=== PATIENT | male | born 1945 | race Caucasian/White ===

== ENCOUNTER → 2017-03-26 | Outpatient (CLI) | payer OTHER ==
[~2017-03-26] MED LIST: CETI10TA10 PO; CHOL20009 PO; GLYB5TAB8 PO; LOSA100T65 PO; METF-384 PO; RANI150T3 PO; SIMV10TA5 PO; SITA1TAB27 PO
[2017-03-26 12:16] LABS: ALT/SGPT 19 U/L (12-78); AST/SGOT 13 U/L (15-37); BLOOD UREA NITROGEN 28 mg/dl (7-18); BUN/CREATININE RATIO 17.6 (10-20); CALCIUM 9.5 mg/dl (8.5-10.1); CARBON DIOXIDE 27 mmol/L (21-32); CHLORIDE 102 mmol/L (98-107); GLUCOSE 270 mg/dl (70-99); POTASSIUM 5.4 mmol/L (3.5-5.1); SODIUM 135 mmol/L (136-145); TRIGLYCERIDES 284 mg/dl (0-150)
[2017-03-26 12:24] LABS: ESTIMATED AVERAGE GLUCOSE 309 mg/dl; HA1C FLAG Normal (Normal)
== END | disposition home or self-care (01) ==
LOC: C.LABPBG 07:41
PROVIDERS: ATTEND Internal Medicine
DX: E11.65 Type 2 diabetes mellitus with hyperglycemia (principal); E78.5 Hyperlipidemia, unspecified

== ENCOUNTER → 2017-03-29 | Outpatient (CLI) | payer OTHER ==
[2017-03-29 17:32] LABS: BLOOD UREA NITROGEN 30 mg/dl (7-18); BUN/CREATININE RATIO 15.9 (10-20); CALCIUM 9.3 mg/dl (8.5-10.1); CARBON DIOXIDE 24 mmol/L (21-32); CHLORIDE 102 mmol/L (98-107); GLUCOSE 345 mg/dl (70-99); POTASSIUM 4.8 mmol/L (3.5-5.1); SODIUM 134 mmol/L (136-145)
[2017-03-29 17:42] LABS: BETA-HYDROXYBUTYRATE 0.92 mg/dL (0.2-2.81)
== END | disposition home or self-care (01) ==
LOC: C.LAB1850 15:54
PROVIDERS: ATTEND Internal Medicine
DX: E87.5 Hyperkalemia (principal)

== ENCOUNTER → 2017-04-04 | Outpatient (CLI) | payer OTHER ==
--- NOTE | 2017-04-04 15:58 | DIAGNOSTIC IMAGING REPORT ---
RENAL ULTRASOUND HISTORY: UNCONTROLLED TYPE 2 DAIBETES,ELEVATED BUN COMPARISON: None. FINDINGS: Right kidney: 12.3 cm. No hydronephrosis. Normal corticomedullary differentiation and cortical thickness. Left kidney: 8.3 cm. No hydronephrosis. Moderate cortical atrophy. Bladder: No bladder wall thickening. The bilateral ureteral jets were identified. IMPRESSION: 1. Normal right kidney. 2. Moderate left renal atrophy. Electronically signed by: Aris Gandhi M.D. 04/04/2017 3:57 PM Dictated Date/Time: 04/04/2017 3:56 PM
== END | disposition home or self-care (01) ==
LOC: C.ULTR 15:31
PROVIDERS: ATTEND Internal Medicine
DX: E11.65 Type 2 diabetes mellitus with hyperglycemia (principal); R79.9 Abnormal finding of blood chemistry, unspecified

== ENCOUNTER → 2017-06-04 | Outpatient (CLI) | payer OTHER ==
[2017-06-04 17:42] LABS: URINE APPEARANCE CLEAR (CLEAR); URINE BILIRUBIN NEG (NEG); URINE COLOR YELLOW; URINE NITRITE NEG (NEG); URINE SPECIFIC GRAVITY 1.024 (1.000-1.030); UROBILINOGEN NEG (NEG)
[2017-06-04 17:52] LABS: HEMATOCRIT 38.5 % (42-52); MEAN CELL VOLUME 86.5 fL (80-100); MEAN CORPUSCULAR HEMOGLOBIN 29.7 pg (25-34); MEAN CORPUSCULAR HGB CONC 34.3 g/dl (32-36); MEAN PLATELET VOLUME 12.6 fL (7.4-10.4); PLATELET COUNT 233 K/uL (130-400); RED BLOOD COUNT 4.45 M/uL (4.7-6.1); WHITE BLOOD COUNT 9.26 K/uL (4.8-10.8)
[2017-06-04 17:55] LABS: MANUAL MICROSCOPIC REQUIRED? NO; REVIEW REQ? NO
[2017-06-04 18:26] LABS: URINE PROTIEN/CREAT RATIO 0.2 (0-0.2); URINE TOTAL PROTEIN 24.3 mg/dl (0-11.9)
[2017-06-04 18:51] LABS: ALB/GLOB RATIO 1.2 (0.9-2); ALKALINE PHOSPHATASE 75 U/L (45-117); ALT/SGPT 25 U/L (12-78); AST/SGOT 14 U/L (15-37); BLOOD UREA NITROGEN 31 mg/dl (7-18); CALCIUM 9.3 mg/dl (8.5-10.1); CARBON DIOXIDE 27 mmol/L (21-32); CHLORIDE 101 mmol/L (98-107); CREATININE 1.56 mg/dl (0.60-1.40); GLUCOSE 269 mg/dl (70-99); PHOSPHORUS 3.5 mg/dl (2.5-4.9); SODIUM 135 mmol/L (136-145)
== END | disposition home or self-care (01) ==
LOC: C.LABPBG 15:52
PROVIDERS: ATTEND Internal Medicine Nephrology
DX: N17.9 Acute kidney failure, unspecified (principal); E11.65 Type 2 diabetes mellitus with hyperglycemia

== ENCOUNTER → 2017-06-18 | Outpatient (CLI) | payer OTHER ==
[2017-06-18 12:13] LABS: ESTIMATED AVERAGE GLUCOSE 220 mg/dl; HA1C FLAG Normal (Normal)
== END | disposition home or self-care (01) ==
LOC: C.LABPBG 07:27
PROVIDERS: ATTEND Physician Assistant
DX: E11.65 Type 2 diabetes mellitus with hyperglycemia (principal)

== ENCOUNTER → 2017-07-29 | Outpatient (CLI) | payer OTHER ==
[2017-07-29 12:33] LABS: ALBUMIN 3.9 gm/dl (3.4-5.0); BLOOD UREA NITROGEN 27 mg/dl (7-18); CALCIUM 9.6 mg/dl (8.5-10.1); CARBON DIOXIDE 27 mmol/L (21-32); CREATININE 1.42 mg/dl (0.60-1.40); GLUCOSE 326 mg/dl (70-99); PHOSPHORUS 2.7 mg/dl (2.5-4.9); POTASSIUM 4.7 mmol/L (3.5-5.1); SODIUM 138 mmol/L (136-145)
== END | disposition home or self-care (01) ==
LOC: C.LABPBG 09:37
PROVIDERS: ATTEND Internal Medicine Nephrology
DX: N17.9 Acute kidney failure, unspecified (principal)

== ENCOUNTER → 2017-08-15 | Outpatient (CLI) | payer OTHER ==
--- NOTE | 2017-08-15 09:00 | DIAGNOSTIC IMAGING REPORT ---
R SHOULDER MIN 2 VIEWS ROUTINE HISTORY: 71 years-old Male M25.511 Right shoulder [id number] acute right shoulder pain without reported trauma COMPARISON: None available TECHNIQUE: 3 views of the right shoulder FINDINGS: There are mild glenohumeral and AC joint degenerative changes without acute fracture or dislocation. The imaged clavicle appears intact. Imaged lung venegas appear clear. IMPRESSION: Mild degenerative changes without acute fracture or dislocation. The above report was generated using voice recognition software. It may contain grammatical, syntax or spelling errors. Electronically signed by: Prashant Zavaleta M.D. 08/15/2017 8:59 AM Dictated Date/Time: 08/15/2017 8:58 AM
== END | disposition home or self-care (01) ==
LOC: C.RAD1850 08:03
PROVIDERS: ATTEND Internal Medicine
DX: M25.511 Pain in right shoulder (principal)

== ENCOUNTER → 2017-11-23 | Outpatient (CLI) | payer OTHER ==
[2017-11-23 10:29] LABS: HEMOGLOBIN A1C 8.8 % (4.5-5.6)
[2017-11-23 10:36] LABS: ALT/SGPT 19 U/L (12-78); AST/SGOT 13 U/L (15-37); BLOOD UREA NITROGEN 27 mg/dl (7-18); CALCIUM 8.8 mg/dl (8.5-10.1); CARBON DIOXIDE 26 mmol/L (21-32); CHOLESTEROL 136 mg/dl (0-200); CREATININE 1.54 mg/dl (0.60-1.40); GLUCOSE 136 mg/dl (70-99); LDL CHOLESTEROL CALCULATED 74 mg/dl; SODIUM 138 mmol/L (136-145)
== END | disposition home or self-care (01) ==
LOC: C.LAB1850 09:01
PROVIDERS: ATTEND Internal Medicine
DX: E11.9 Type 2 diabetes mellitus without complications (principal); E78.5 Hyperlipidemia, unspecified

== ENCOUNTER 2024-04-10 03:27 | Inpatient (IN) ==
--- NOTE | 2024-04-10 03:50 | Emergency Department Note ---
Impression & Plan Acute hyperglycemia, Acute UTI (urinary tract infection), Acute dehydration, Acute hyponatremia, DANIEL (acute kidney injury) ED Provider Note Name: INES CASTRO Age: 78 Sex: Male Arrives Via: Walk-In Informant: Patient, , son ED Provider: Anastacio Ventura MD Chief Complaint: Weakness Impression: As per impressions above Medical Decision Making: Pleasant 78-year-old gentleman with worsening weakness over the last several weeks. Notes he has been falling regularly at home. States because his legs just get too weak. He was seen in the ER for this about a week ago as well as by PCP a few days ago. MRI was ordered which was unremarkable yesterday. Continued worsening weakness thus returned to ED. Given continued symptoms felt that laboratry work up indicated. Hold on further neuro imaging given MRI negative yesterday. Labs remarkable for extensive abnormality including severely elevated BSG. Patient admits he doesn't check his sugars nor take his DMII medications. Likely has UTI as well for which rocephin given. IV fluids for dehydration and hyperglycemia. Defer insulin plan to hospitalist after discussion with them. Patient does not have severe sepsis at this time. Triage/Nursing Notes reviewed by Me External Chart Review by me: Reviewed PCP note from 04-08-24 discussing worsening left leg weakness and frequent falls and plan for MRI. I reviewed the MRI from yesterday which reveals no acute intracranial finding. Differential:Infection, dehydration, metabolic abnormality, hypo/hyperglycemia, electrolyte disturbance, anemia, hypoxia, cardiac sources, intracerebral event, toxicologic, neurologic, as well as other pathologies. Vital Signs: reviewed and remarkable for no significant abnormalities Interventions: rocephin iv, nss bolus Labs:ED labs Reviewed by me and remarkable for multiple laboratory abnormalities Consults: Discussed with hospitalist who will evaluate for further management. Plan: Disposition:Hospitalization. Condition: Fair History of Present Illness: 78-year-old gentleman arrives for evaluation of weakness. Patient with several weeks of worsening weakness. Primarily in bilateral legs. He notes it feels like his left leg just does not have the strength he used to. Also notes some weakness in the right leg at times. He has been following with ER and PCP for this. Yesterday had an MRI of the brain which was unremarkable. This evening he got up to go to the bathroom which he does every 2-3 hours at night and left leg gave out on him. He fell backwards hitting his back upper right on something. Notes mild soreness in this area. Mild worsening with movement of the right shoulder blade. Denies any shortness of breath, chest pain, palpitations, nausea, vomiting, low back pain, loss of bowel or bladder control, other concerning signs or symptoms. States weakness is no worse than it has been previously. No specific recollection of any tick bites though does note he periodically is in the saravia or weeds. Patient is adamant he has no headache neurologic deficits and denies any hitting of his head or loss of consciousness. Patient admits that he is supposed to be using a walker or cane but does not. Past Medical History: Diabetes, CKD, dyslipidemia, hypertension, restless legs, allergies Home Medications:See Below Allergies:nkda Vitals:Blood Pressure: 130/75, Pulse 91, RR 20, T 36.5C, O2 98% on RA Physical Exam: GENERAL: Patient is tired/elderly appearing and in minimal distress. HEAD: AT/NC NECK: No midline TTP, no stepoffs RESPIRATORY: No dyspnea. Clear to auscultation and equal bilaterally. CARDIOVASCULAR: Regular rate and rhythm.No murmur appreciated. GASTROINTESTINAL: Abdomen soft, non-tender, no peritonitis. BACK: Bruising and abrasions over the upper right back between midline and scapula with some TTP. No midline tenderness, no CVA tenderness EXTREMITIES: Normal motion all extremities, no cyanosis, no edema. NEUROLOGIC: Alert and oriented. No focal neurologic deficits appreciated SKIN: No rash, no jaundice, no diaphoresis. PSYCH: Appropriate GCS: 15 ED Course: Times/Reassessments: stable, breathing comfortable, agreeable to hospitalization Anastacio Ventura MD Past Med/Surg History Problem List (Updated 04/11/24 @ 15:58 by Marlene Corona MD) Urinary retention Hyperglycemia due to diabetes mellitus (Acute) DANIEL (acute kidney injury) (Acute) Acute hyponatremia (Acute) Acute dehydration (Acute) Acute UTI (urinary tract infection) (Acute) Acute hyperglycemia (Acute) Fall (Acute) Left arm pain (Acute) DM type 2 causing CKD stage 3 Uncontrolled type 2 diabetes mellitus with hyperglycemia, without long-term current use of insulin Contusion of leg (Acute) Leg hematoma (Acute) Adjustment disorder (Acute) Cataract, bilateral (Acute) Chronic kidney disease, stage III (moderate) (Acute) Diabetes mellitus type 2, uncontrolled (Chronic) Dyslipidemia (Acute) Hyperkalemia (Acute) Hypertension (Chronic) Right shoulder pain (Acute) Vitamin B12 deficiency Ptosis of both eyebrows Ptosis, right eyelid Dermatochalasis of both upper eyelids Medical History DANIEL (acute kidney injury) Surgical History No pertinent past surgical history Family History Other Adopted Social History Smoking Status: Former smoker Tobacco Type: Cigarettes Second Hand Exposure: No; Do You Dip or Chew Tobacco: No; Hx Alcohol Use: No Hx Substance Use: No Preferred Language: Azeri Communication Ability: Effective Armhole Feller Handstitching Machine Required: No Beliefs That Will Affect Care: None marital status: Current Living Situation: Spouse current occupational status: employed 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 Feels Safe at Home: Yes Childhood Exposure to Second-Hand Smoke: Yes Diet: diabetic Dental Care, Regularly: No Physical Activity Frequency: Does not Exercise Seatbelt Use: sometimes Sunscreen Use: No Assistive Devices: None Allergies Allergies Allergy/AdvReac Type Severity Reaction Status Date / Time No Known Allergies Allergy Unverified 04/10/24 08:20 Home Meds Home Medications Medication Instructions Recorded Confirmed cetirizine 10 mg capsule 10 mg PO DAILY PRN allergy symptoms 04/15/19 04/10/24 cholecalciferol (vitamin D3) 50 2,000 units PO DAILY 04/15/19 04/10/24 mcg (2,000 unit) capsule Previous Rx's Medication Instructions Recorded flash glucose scanning reader #1 ea 03/10/20 (ClacendixStyle Sangeetha 14 Day [place]) flash glucose sensor (FreeStyle #2 ea 03/10/20 Sangeetha 14 Day Sensor kit) blood sugar diagnostic (OneTouch #100 ea 04/05/22 Ultra Test strips) glimepiride 4 mg tablet 4 mg PO .COMPLEX #180 tabs 01/20/24 empagliflozin 10 mg tablet 10 mg PO DAILY #30 tabs 02/14/24 (Jardiance) dulaglutide 4.5 mg/0.5 mL 4.5 mg (0.5 mL) subcut .COMPLEX #2 03/02/24 subcutaneous pen injector mL triamcinolone acetonide 0.1 % 1 applic topical BID #30 grams 04/03/24 topical ointment Results & Data (ED) Vital Signs Vital Signs - 24 hr 04/10/24 03:31 04/10/24 03:55 04/10/24 04:04 Temperature 36.5 C Temperature Source Temporal Artery Scan Pulse Rate 91 H 93 H 86 Respiratory Rate 20 12 Respiratory Effort / Characteristics Non-Labored Spontaneous Respiratory Depth Normal Blood Pressure 130/75 146/92 H Blood Pressure Mean 93 103 Pulse Oximetry 98 97 Oxygen Delivery Method Room Air Room Air Sepsis Recent Fever Within 48 Hours No Sepsis New/Unexplained Change in Mental Status N/A Sepsis Action Taken by Nursing No Action Required 04/10/24 05:30 Temperature Temperature Source Pulse Rate 89 Respiratory Rate 14 Respiratory Effort / Characteristics Respiratory Depth Blood Pressure 163/97 H Blood Pressure Mean 119 Pulse Oximetry 99 Oxygen Delivery Method Room Air Sepsis Recent Fever Within 48 Hours Sepsis New/Unexplained Change in Mental Status Sepsis Action Taken by Nursing Laboratory Data 04/13/24 06:30 04/13/24 06:30 Lab Results 04/10/24 04/10/24 Range/Units 03:53 04:00 WBC 9.56 (4.8-10.8) K/ul RBC 4.61 L (4.70-6.10) M/uL Hgb 13.6 L (14.0-18.0) g/dl Hct 39.1 L (42.0-52.0) % MCV 84.8 (80.0-100.0) fL MCH 29.5 (25.0-34.0) pg MCHC 34.8 (32.0-36.0) g/dL RDW Std Deviation 38.2 (36.4-46.3) fL RDW Coeff of Hollis 12.4 (11.5-14.5) % Plt Count 263 (130-400) K/uL MPV 12.0 (9.4-12.4) fL Immature Gran % (Auto) 0.5 % Neut % (Auto) 69.5 % Lymph % (Auto) 20.0 % Bonner % (Auto) 6.8 % Eos % (Auto) 2.7 % Baso % (Auto) 0.5 % Neut # (Auto) 6.64 H (1.40-6.50) K/uL Lymph # (Auto) 1.91 (1.20-3.40) K/uL Bonner # (Auto) 0.65 H (0.11-0.59) K/uL Eos # (Auto) 0.26 (0.00-0.50) K/uL Baso # (Auto) 0.05 (0.00-0.20) K/uL Immature Gran # (Auto) 0.05 (0.01-0.20) K/uL ESR 46 H (0-20) mm/hr Sodium 122 L (136-145) mmol/L Potassium 4.4 (3.5-5.1) mmol/L Chloride 86 L (98-107) mmol/L Carbon Dioxide 25 (21-32) mmol/L Anion Gap 11 (3-11) BUN 41 H (6-23) mg/dl Creatinine 2.12 H (0.6-1.4) mg/dl Est Cr Clr Drug Dosing Not Reportable eGFR 30.88 BUN/Creatinine Ratio 19.3 (10-20) Glucose 771 H* (70-99(Fasting)) mg/dl Calcium 9.4 (8.6-10.3) mg/dl Magnesium 2.0 (1.7-2.4) mg/dl Total Bilirubin 0.9 (0.2-1.0) mg/dl Direct Bilirubin 0.2 (0-0.2) mg/dl AST 18 (13-39) U/L ALT 19 (7-52) U/L Alkaline Phosphatase 145 H (34-104) U/L Total Protein 7.5 (6.0-8.3) gm/dl Albumin 4.2 (3.4-5.0) gm/dl TSH 1.635 (0.300-4.500) uIu/ml Urine Color Yellow Urine Appearance Cloudy A (Clear) Urine pH 5.5 (4.5-7.5) Ur Specific [place] 1.029 (1.000-1.030) Urine Protein 1+ H (Negative) Urine Glucose (UA) 3+ H (Negative) Urine Ketones Trace H (Negative) Urine Blood 1+ H (Negative) Urine Nitrite Negative (Negative) Urine Bilirubin Negative (Negative) Urine Urobilinogen Negative (Negative) Ur Leukocyte Esterase 2+ H (Negative) Urine WBC (Auto) >50 H (0-5) /hpf Urine RBC (Auto) 0-2 (0-2) /hpf U Hyaline Cast (Auto) 0-2 (0-2) /lpf U Epithel Cells (Auto) 0-2 (0-2) /hpf Urine Bacteria (Auto) 2+ H (None Seen) Urine Osmolality 482 L (500-800) mOsm/kg Ur Random Sodium 23 mmol/L Lyme Disease Screen Negative (Negative) Administered Medications Enoxaparin Sodium (Enoxaparin Inj 30 Mg/0.3 Ml Syr) 30 mg SQ QAM [facility] Stop: 05/12/24 08:59 Last Admin: 04/13/24 07:48 Dose: 30 mg Documented By: Admin: 04/12/24 08:30 Dose: 30 mg Documented By: AM Insulin Aspart (Insulin Aspart Per Unit Charge) 0 units SC ACHS ZAIN Stop: 05/10/24 07:29 Last Admin: 04/13/24 17:17 Dose: 10 units Documented By: BRADEN Co-signed By: FCO Admin: 04/13/24 12:00 Dose: 9 units Documented By: AM Co-signed By: NADIA Admin: 04/13/24 07:47 Dose: 14 units Documented By: AM Co-signed By: NADIA Admin: 04/12/24 20:27 Dose: Not Given Documented By: AMP Co-signed By: MMD Admin: 04/12/24 16:59 Dose: 10 units Documented By: AM Co-signed By: RB Admin: 04/12/24 11:51 Dose: 14 units Documented By: AM Co-signed By: CA Admin: 04/12/24 08:27 Dose: 21 units Documented By: AM Co-signed By: KEN Admin: 04/11/24 20:49 Dose: 10 units Documented By: AMP Co-signed By: JOSÉ LUIS Admin: 04/11/24 16:49 Dose: 12 units Documented By: AM Co-signed By: KEN Admin: 04/11/24 12:17 Dose: 15 units Documented By: AM Co-signed By: ÁNGEL Admin: 04/11/24 08:10 Dose: 10 units Documented By: AM Co-signed By: ARV Admin: 04/10/24 21:41 Dose: 1 units Documented By: AM Co-signed By: KYLER Admin: 04/10/24 16:42 Dose: 5 units Documented By: AM Co-signed By: ÁNGEL Admin: 04/10/24 13:30 Dose: 10 units Documented By: PK Co-signed By: ÁNGEL Admin: 04/10/24 06:48 Dose: Not Given Documented By: CARLOS Co-signed By: DARLING Insulin Glargine (Lantus Per Unit Charge) 35 units SC QAM [facility] Stop: 05/12/24 08:59 Last Admin: 04/13/24 08:08 Dose: 35 units Documented By: WILLIE Co-signed By: Admin: 04/12/24 08:28 Dose: 35 units Documented By: AM Co-signed By: KEN Tamsulosin HCl (Tamsulosin Hcl 0.4 Mg Cap) [facility] Stop: 05/11/24 09:14 Last Admin: 04/13/24 07:48 Dose: 0.4 mg Documented By: Admin: 04/12/24 08:30 Dose: 0.4 mg Documented By: Admin: 04/11/24 09:33 Dose: 0.4 mg Documented By: WILLIE Discontinued Medications Sodium Chloride (Nss) 1,000 mls @ 999 mls/hr IV .Q1H1M ONE Stop: 04/10/24 06:22 Last Admin: 04/10/24 06:06 Dose: Not Given Documented By: CARLOS Ceftriaxone Sodium (Rocephin) 2,000 mg in 50 mls @ 100 mls/hr IV NOW STA Stop: 04/10/24 05:53 Last Infusion: 04/10/24 06:39 Dose: Infused Documented By: Admin: 04/10/24 06:08 Dose: 100 mls/hr Documented By: CARLOS Potassium Chloride/Sodium Chloride (Normal Saline W/20 Meq Kcl) 20 meq in 1,000 mls @ 180 mls/hr IV .Q5H34M ZAIN Stop: 04/10/24 17:36 Last Infusion: 04/10/24 17:36 Dose: Infused Documented By: Admin: 04/10/24 12:25 Dose: 180 mls/hr Documented By: Infusion: 04/10/24 12:18 Dose: Infused Documented By: Admin: 04/10/24 06:44 Dose: 180 mls/hr Documented By: CARLOS Insulin Human Regular 250 (units/ Sodium Chloride) 250 mls @ 4.2 mls/hr IV .Q24H [facility]; Protocol Stop: 05/10/24 06:29 Last Titration: 04/10/24 17:13 Dose: Infused Documented By: AM Co-signed By: KJS Titration: 04/10/24 16:28 Dose: 4.2 units/hr, 4.2 mls/hr Documented By: AM Co-signed By: LCS Titration: 04/10/24 16:05 Dose: 5.2 units/hr, 5.2 mls/hr Documented By: AM Co-signed By: EP Titration: 04/10/24 15:35 Dose: 0 units/hr, 0 mls/hr Documented By: AM Co-signed By: LCS Titration: 04/10/24 15:24 Dose: 8.7 units/hr, 8.7 mls/hr Documented By: AM Co-signed By: PK Titration: 04/10/24 13:30 Dose: 8.7 units/hr, 8.7 mls/hr Documented By: PK Co-signed By: BRADEN(2) Titration: 04/10/24 13:27 Dose: 6.2 units/hr, 6.2 mls/hr Documented By: PK Co-signed By: EP Titration: 04/10/24 12:24 Dose: 4.4 units/hr, 4.4 mls/hr Documented By: PK Co-signed By: LCS Titration: 04/10/24 11:12 Dose: 3.6 units/hr, 3.6 mls/hr Documented By: PK Co-signed By: LCS Titration: 04/10/24 10:11 Dose: 2.4 units/hr, 2.4 mls/hr Documented By: PK Co-signed By: LCS Titration: 04/10/24 08:58 Dose: 2.4 units/hr, 2.4 mls/hr Documented By: BRTitus Co-signed By: GEOVANY Admin: 04/10/24 07:43 Dose: 2 units/hr, 2 mls/hr Documented By: BRJ Co-signed By: ALIA Insulin Aspart (Insulin Aspart Per Unit Charge) 0 units SC 0000,0400 [facility] Stop: 04/11/24 04:01 Last Admin: 04/11/24 04:21 Dose: Not Given Documented By: Admin: 04/11/24 00:00 Dose: 5 units Documented By: MNM Co-signed By: SG Insulin Glargine (Lantus Per Unit Charge) 20 units SC ONE ONE Stop: 04/10/24 12:01 Last Admin: 04/10/24 13:30 Dose: 20 units Documented By: PK Co-signed By: ÁNGEL Insulin Glargine (Lantus Per Unit Charge) 25 units SC [facility] Stop: 05/11/24 08:59 Last Admin: 04/11/24 08:11 Dose: 25 units Documented By: AM Co-signed By: FARHAN Insulin Glargine (Lantus Per Unit Charge) 0 units SC [facility]; Protocol Stop: 05/12/24 20:59 Last Admin: 04/12/24 20:31 Dose: Not Given Documented By: AMP Insulin Human Regular (Novolin-R Bolus From Bag) 2 units IV ONE ONE Stop: 04/10/24 06:31 Last Admin: 04/10/24 07:44 Dose: 2 units Documented By: SERENA Co-signed By: ALIA Polyethylene Glycol (Polyethylene (Miralax) 17 Gm Pack) 17 gm PO DAILY PRN PRN Reason: Constipation Stop: 05/10/24 08:04 Last Admin: 04/12/24 17:00 Dose: 17 gm Documented By: AM Discharge Plan Visit Data Chief Complaint: Fall Stated Complaint: FELL OUT OF BED, BLOOD ON FLOOR ED Provider: Anastacio Ventura Discharge Problem: Acute hyperglycemia, Acute UTI (urinary tract infection), Acute dehydration, Acute hyponatremia, DANIEL (acute kidney injury) Patient Disposition: Admitted As Inpatient Discharge Instructions Interventions: ED Discharge Assessment Last Done: 04/10/24 08:06
[2024-04-10 04:23] LABS: Appearance Urine Cloudy (Clear); Bacteria Urine Automated 2+ (None Seen); Bilirubin Urine Negative (Negative); Blood Urine 1+ (Negative); Cast Urine Automated 0-2 /lpf (0-2); Color Urine Yellow; Epithelial Cell Urine Auto 0-2 /hpf (0-2); Glucose Urine UA 3+ (Negative); Ketones Urine Trace (Negative); Leukocyte Esterase Urine 2+ (Negative); Nitrite Urine Negative (Negative); Protein Urine 1+ (Negative); RBC Urine Automated 0-2 /hpf (0-2); Specific Gravity Urine 1.029 (1.000-1.030); Urobilinogen Urine Negative (Negative); WBC Urine Automated >50 /hpf (0-5); pH Urine 5.5 (4.5-7.5)
[2024-04-10 04:24] LABS: Basophils # (auto) 0.05 K/uL (0.00-0.20); Basophils % (auto) 0.5 %; Eosinophils # (auto) 0.26 K/uL (0.00-0.50); Eosinophils % (auto) 2.7 %; Hematocrit (blood only) 39.1 % (42.0-52.0); Hemoglobin 13.6 g/dl (14.0-18.0); Immature Granulocytes # (auto) 0.05 K/uL (0.01-0.20); Immature Granulocytes % (auto) 0.5 %; Lymphocytes # (auto) 1.91 K/uL (1.20-3.40); Mean Corpuscular Hemoglobin 29.5 pg (25.0-34.0); Mean Corpuscular Hgb Conc 34.8 g/dL (32.0-36.0); Mean Corpuscular Volume 84.8 fL (80.0-100.0); Monocytes # (auto) 0.65 K/uL (0.11-0.59); Monocytes % (auto) 6.8 %; Neutrophils # (auto) 6.64 K/uL (1.40-6.50); Neutrophils % (auto) 69.5 %; Platelet Count 263 K/uL (130-400); RDW Coefficient of Variation 12.4 % (11.5-14.5); RDW Standard Deviation 38.2 fL (36.4-46.3); Red Blood Count 4.61 M/uL (4.70-6.10); White Blood Count 9.56 K/ul (4.8-10.8)
[2024-04-10 05:02] LABS: Alanine Aminotransferase 19 U/L (7-52); Albumin Level 4.2 gm/dl (3.4-5.0); Alkaline Phosphatase 145 U/L (34-104); Anion Gap 11 (3-11); Aspartate Aminotransferase 18 U/L (13-39); BUN Creatinine Ratio 19.3 (10-20); Bilirubin Direct 0.2 mg/dl (0-0.2); Bilirubin,Total 0.9 mg/dl (0.2-1.0); Blood Urea Nitrogen 41 mg/dl (6-23); Calcium 9.4 mg/dl (8.6-10.3); Carbon Dioxide 25 mmol/L (21-32); Chloride 86 mmol/L (98-107); Glucose 771 mg/dl (70-99(Fasting)); Potassium 4.4 mmol/L (3.5-5.1); Sodium 122 mmol/L (136-145); Thyroid Stimulating Hormone 1.635 uIu/ml (0.300-4.500); Total Protein 7.5 gm/dl (6.0-8.3)
--- NOTE | 2024-04-10 05:32 | History & Physical Report ---
Date of Service April 10, 2024 Assessment & Plan (1) Uncontrolled type 2 diabetes mellitus with hyperglycemia, without long-term current use of insulin: (2) Chronic kidney disease, stage III (moderate): (3) Diabetes mellitus type 2, uncontrolled: (4) Dyslipidemia: (5) Hypertension: (6) Fall: Plan Fady is a 78M w/ PMH of uncontrolled DM2 w/ CKD, HLD, HTN, and B12 deficiency who presents for worsening lower extremity weakness and upper extremity tremors. Patient was found to have a BSG of 771 and was admitted for IV insulin therapy. Hyperglycemia (771) - Hyperglycemia in setting of progressive weakness, ketonuria w/o anion gap - Patient w/ underlying uncontrolled T2DM on Dulaglutide, Empagliflozin, and Glimepiride Home antidiabetic medications held Last A1c 12.3 in January 2024, repeat A1c ordered BSG checks Q1h - Start NSS + K @ 180cc/hr (1.5 x mIVF) for 2 bags - Start Insulin gtt ordered per protocol - BMP, Mg, and Phos Q4h - Encourage ongoing lifestyle counseling targeted towards DM2 Hyponatremia (122) - IVFs/Insulin as above - LIkely 2/2 significant hyperglycemia (pseudohyponatremia) Acute Kidney Injury (2.12) on CKD 3 - Baseline ~ 1.6-1.8, now 2.12 - Avoid nephrotoxic agents - IVFs as above - BMP as above Weakness - Potential a/w hyperglycemia/pseudohyponatremia/uncontrolled T2DM \- 04/09/24 Brain MRI w/o acute abnormality, chronic microvascular change - 04/10/24 CTAP pending - PT/OT evals - Fall precautions Abnormal Urinalysis - Urinalysis w/ ketones, blood, leuks, WBC and bacteria - Patient w/ polyuria/polydipsia, unlikely UTI Patient denies fevers/chills, dysuria, flank pain, or suprapubic pain - Urine culture pending - Ceftriaxone received in ED though given increase urinary frequency Chronic Conditions - DM2: hold home meds, start insulin ggt - HLD: no home statin - HTN: hold Losartan d/t DANIEL Diet: NPO Code: Full DVT: SCD Dispo: PCU History of Present Illness Chief Complaint: Weakness Primary Care Provider: Star Duron MD Fady is a 78M w/ PMH of uncontrolled DM2 w/ CKD, HLD, HTN, and B12 deficiency who presents for worsening lower extremity weakness and upper extremity tremors. Patient presents to the emergency department today due to progressive lower extremity weakness and intermittent upper extremity tremors over the last few weeks. He was accompanied by his and a friend who are worried about his wellbeing. Patient notes that over the last few weeks he has become progressively more thirsty and has been urinating constantly, to the point of incontinence. notes that patient experiences alot of dietary indiscretions (enjoys [employer] pies) and is not as mobile as he used to be (due to leg weakness/discomfort). Patient denies any chest pain, dyspnea, lightheadedness, dizziness, nausea, emesis, fevers, chills, or abdominal pain. He continues to move bowels regularly. Patient endorses increased urinary frequency without dysuria, suprapubic pain, or flank pain. notes that his urine is very concentrated and 'sticky'. Patient has been struggling to obtain an Rx for Trulicity, which used to work well for him, he notes that the cost is prohibitive at this time. He continues to take his other anti-diabetic medications as prescribed. Patient does not take his blood sugars regularly, citing that the BSG pricks have made all his fingers numb/calloused. Allergies Allergy/AdvReac Type Severity Reaction Status Date / Time No Known Allergies Allergy Unverified 04/10/24 08:20 Home Medications Medication Instructions Recorded Confirmed Type cetirizine 10 mg capsule 10 mg PO DAILY PRN allergy symptoms 04/15/19 04/10/24 History cholecalciferol (vitamin D3) 50 2,000 units PO DAILY 04/15/19 04/10/24 History mcg (2,000 unit) capsule flash glucose scanning reader #1 ea 03/10/20 01/22/24 Rx (FreeStyle Sangeetha 14 Day [place]) flash glucose sensor (FreeStyle #2 ea 03/10/20 01/22/24 Rx Sangeetha 14 Day Sensor kit) blood sugar diagnostic (SimpleRegistryTouch #100 ea 04/05/22 01/22/24 Rx Ultra Test strips) glimepiride 4 mg tablet 4 mg PO .COMPLEX #180 tabs 01/20/24 04/03/24 Rx empagliflozin 10 mg tablet 10 mg PO DAILY #30 tabs 02/14/24 04/10/24 Rx (Jardiance) dulaglutide 4.5 mg/0.5 mL 4.5 mg (0.5 mL) subcut .COMPLEX #2 03/02/24 04/10/24 Rx subcutaneous pen injector mL triamcinolone acetonide 0.1 % 1 applic topical BID #30 grams 04/03/24 04/10/24 Rx topical ointment Past Med/Surg History Problem List (Updated 04/10/24 @ 07:59 by Karson Mckenzie) DANIEL (acute kidney injury) (Acute) Acute hyponatremia (Acute) Acute dehydration (Acute) Acute UTI (urinary tract infection) (Acute) Acute hyperglycemia (Acute) Fall (Acute) Left arm pain (Acute) DM type 2 causing CKD stage 3 Uncontrolled type 2 diabetes mellitus with hyperglycemia, without long-term current use of insulin Contusion of leg (Acute) Leg hematoma (Acute) Adjustment disorder (Acute) Cataract, bilateral (Acute) Chronic kidney disease, stage III (moderate) (Acute) Diabetes mellitus type 2, uncontrolled (Chronic) Dyslipidemia (Acute) Hyperkalemia (Acute) Hypertension (Chronic) Right shoulder pain (Acute) Vitamin B12 deficiency Ptosis of both eyebrows Ptosis, right eyelid Dermatochalasis of both upper eyelids Medical History DANIEL (acute kidney injury) Surgical History No pertinent past surgical history Family History Other Adopted Social History Smoking Status: Former smoker Tobacco Type: Cigarettes Second Hand Exposure: No; Do You Dip or Chew Tobacco: No; Hx Alcohol Use: No Hx Substance Use: No Preferred Language: Malian Communication Ability: Effective Pediatrician Managing Partner Required: No Beliefs That Will Affect Care: None marital status: Current Living Situation: Spouse current occupational status: employed 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 Feels Safe at Home: Yes Childhood Exposure to Second-Hand Smoke: Yes Diet: diabetic Dental Care, Regularly: No Physical Activity Frequency: Does not Exercise Seatbelt Use: sometimes Sunscreen Use: No Assistive Devices: Glasses Physical Exam Physical Exam: Gen: NAD, alert, interactive, mildly tremulous UE HEENT: Supple, no LAD, no thyromegaly, no JVD, dry mucous membranes Resp:Non-labored, no wheezing/rhonchi/rales, CTAB CV:RRR, normal S1/S2, no M/R/G Abd: Soft, non-distended, no TTP, normoactive bowels, no masses Extr: 2+ dp bilaterally, no edema Skin: No rashes lesions or erythema Results & Data Results & Data Vital Signs (Past 12 Hours) Vital Signs Temp Pulse Resp BP Pulse Ox O2 Del Method 04/10/24 04:04 86 12 146/92 H 97 Room Air 04/10/24 03:31 36.5 C 91 H 20 130/75 98 Room Air Supervising Physician Co-Signing Physician Notes Patient seen and examined, chart reviewed, case discussed with Dr. Barker and I agree with the assessment and plan as above Resident Activity Tracking Resident Involvement: Resident Care Provided Care Provided: Adult Hospital Medicine (6) Fall Encounter type: initial encounter Qualified Code(s): W19.XXXA - Unspecified fall, initial encounter
[2024-04-10] MEDS ORDERED: POTASSIUM CHLORIDE / WTR 10 MEQ/100 ML PLCT IV SCH (06:00)
[2024-04-10] MEDS ORDERED: STAT IV Infusion **Titration per Protocol STA (06:01)
[2024-04-10] MEDS: SODIUM CHLORIDE 0.9% 1,000 ML IV ONE (06:06)
[2024-04-10] MEDS: cefTRIAXone SODIUM 2,000 MG/50 ML BAG IV STA (06:08)
[2024-04-10] MEDS ORDERED: GLUCAGON FOR INJ 1 MG VIAL SQ PRN (06:30)
[2024-04-10] MEDS ORDERED: CARBOHYDRATES FOR HYPOGLYCEMIA PO PRN (06:30)
[2024-04-10] MEDS ORDERED: GLUCOSE 10 TAB/TUBE PO PRN (06:30)
[2024-04-10] MEDS ORDERED: GLUCOSE 40% GEL 15 GM TUBE PO PRN (06:30)
[2024-04-10] MEDS ORDERED: DEXTROSE 50% 50 ML SYRINGE IV PRN (06:30)
--- NOTE | 2024-04-10 06:42 | XRay Report ---
XR chest 1V portable CLINICAL HISTORY: Fall. COMPARISON STUDY: No previous studies for comparison. FINDINGS: Lung volumes are normal. Lungs are clear. There is no pneumothorax or pleural effusion. Car diac size is normal. Mediastinal contours are normal. There is no evidence for pulmonary edema. IMPRESSION: No acute cardiopulmonary findings. ACT 112: Negative or not required by law. Electronically signed by: Darci Woods M.D. 04/10/2024 6:40 AM
[2024-04-10] MEDS: NSS + 20MEQ KCL 20 MEQ/1,000 ML BAG IV SCH (06:44)
[2024-04-10] MEDS: INSULIN ASPART PER UNIT CHARGE SC SCH (06:48)
--- NOTE | 2024-04-10 06:50 | XRay Report ---
XR thoracic spine 3V routine HISTORY: 78 years-old Male fall, upper thoracic back trauma acute upper back pain status post fall COMPARISON: Chest radiograph of same day TECHNIQUE: 3 views of the thoracic spine FINDINGS: Moderate multilevel intervertebral disc space narrowing with moderate spondylitic spurring and facet arthrosis. No acute fracture or subluxation identified. The imaged lung venegas appear clear. IMPRESSION: No acute fracture or subluxation identified. ACT 112: Negative or not required by law. The above report was generated using voice recognition software. It may contain grammatical, syntax o r spelling errors. Electronically signed by: Capo Zavaleta M.D. 04/10/2024 6:49 AM
--- NOTE | 2024-04-10 07:09 | Billing Data ---
Date of Service April 10, 2024 Coding Level of Care Code 98438 INT INP/OBS CARE
[2024-04-10 07:36] LABS: BUN Creatinine Ratio 20.3 (10-20); Calcium 9.5 mg/dl (8.6-10.3); Creatinine Clr Calc Pharmacy 32.8 ml/min; Magnesium 2.1 mg/dl (1.7-2.4); Phosphorus 3.7 mg/dl (2.5-4.9); Potassium 4.5 mmol/L (3.5-5.1)
[2024-04-10] MEDS: INSULIN REGULAR 250 UNITS in SODIUM CHLORIDE 0.9% 247.5 ML IV SCH (07:43)
[2024-04-10] MEDS: NovoLIN-R BOLUS FROM BAG IV ONE (07:44)
[2024-04-10 08:04] LABS: Estimated Average Glucose > 438 mg/dl; Hemoglobin A1C > 16.9 % (4.5-5.6)
[2024-04-10] MEDS ORDERED: ACETAMINOPHEN 325 MG TAB PO PRN (08:05)
[2024-04-10] MEDS ORDERED: ONDANSETRON INJ 2 MG/ML 2 ML VIAL IV PRN (08:05)
[2024-04-10] MEDS ORDERED: NSS + 20MEQ KCL 20 MEQ/1,000 ML BAG IV SCH (08:05)
[2024-04-10 10:33] LABS: BUN Creatinine Ratio 20.1 (10-20); Calcium 9.4 mg/dl (8.6-10.3); Creatinine Clr Calc Pharmacy 33.3 ml/min; Potassium 4.1 mmol/L (3.5-5.1)
[2024-04-10] MEDS ORDERED: PHARMACY GLYCEMIC MGMT CONSULT SCH (11:30)
--- NOTE | 2024-04-10 13:01 | Pharmacy Report ---
Pharmacy Glycemic Short Note 2 - Date of Service April 10, 2024 - Glycemic Short BSG Results (Last 24 hours): 04/10/24 04/10/24 04/10/24 04:00 06:30 07:37 Glucose 771 H* 709 H* POC Glucose > 600 H* 04/10/24 04/10/24 04/10/24 08:49 09:54 10:02 Glucose 462 H* POC Glucose 590 H* 468 H* 04/10/24 04/10/24 11:08 12:14 Glucose POC Glucose 430 H* 359 H* OUTPATIENT ANTIDIABETIC REGIMEN: * Empagliflozin 10 mg PO daily * Glimepiride 4 mg PO BIDM * Trulicity 4.5 mg SC weekly (cost prohibitive at this time) HbA1c: >16.9% (04/10/24) ASSESSMENT: * LAYNE is an 78 year old male who presented to ED early this morning due to progressive LE weakness. Patient also reports increased thirst and urination. * Blood sugar on presentation is 771 mg/dL w/ undetectably high HbA1c * Insulin infusion and IV fluids initiated in ED. Pharmacy consulted for glycemic management around lunchtime to aid in insulin gtt transition to SQ. * Anion gap of 11, carbon dioxide 25 mmol/L, serum osmolality 313 * Pertinent PMH includes uncontrolled T2DM (dietary indiscretions noted by patient's ) and DANIEL on CKD * Diet ordered with lunch, will give one-time basal order now * Patient is insulin naive, but with significantly elevated HbA1c so 0.2-0.3 units/kg/day is reasonable PLAN FOR INPATIENT GLYCEMIC CONTROL: * Hold outpatient oral diabetes medications' * Continue insulin infusion * Basal insulin * Lantus 20 units SC x 1 (~0.25 unit/kg) * Bolus insulin per insulin infusion calculator * Once insulin infusion titrated off, the following is likely reasonable * NovoLog per scale ACHS or Q6hrs while NPO * Goal Range: Low 110 mg/dL - High 140 mg/dL * Correction Factor: 25 mg/dL/unit * Nutritional / Prandial insulin per carb ratio of 1 unit per 8 grams CHO consumed
[2024-04-10] MEDS: LANTUS PER UNIT CHARGE SC ONE (13:30)
[2024-04-10 15:41] LABS: BUN Creatinine Ratio 18.2 (10-20); Calcium 9.2 mg/dl (8.6-10.3); Creatinine Clr Calc Pharmacy 28.7 ml/min; Magnesium 1.9 mg/dl (1.7-2.4); Phosphorus 3.2 mg/dl (2.5-4.9); Potassium 4.2 mmol/L (3.5-5.1)
--- NOTE | 2024-04-10 15:50 | Medical Student Progress Note ---
Date of Service April 10, 2024 Assessment & Plan (1) Hyperglycemia due to diabetes mellitus: (2) DANIEL (acute kidney injury): (3) Acute hyponatremia: (4) Uncontrolled type 2 diabetes mellitus with hyperglycemia, without long-term current use of insulin: (5) Chronic kidney disease, stage III (moderate): (6) Dyslipidemia: (7) Hypertension: (8) Fall: Encounter type: initial encounter Qualified Code(s): W19.XXXA - Unspecified fall, initial encounter Plan -Acute hyperglycemia; Uncontrolled type II DM Patient presented to the ED with blood glucose of 771. Experiencing weakness, polyuria, polydipsia. Anion gap 9, osmolality 313 mOsm/Kg HbA1C >16.9 Recently self-discontinued metformin due to belief it is a "bad" med, ran out of his Trulicity due to [place]. Patient counseled about importance of blood sugar controlled. Originally opposed to use of insulin but is seemingly more on board with insulin use or at least medication use. More discussion needs to be had regarding shelter blood sugar management after discharge. * Start NSS with K at 180cc/hr (1.5x mIVF) for 2 bags * Insulin drip. Pharmacy glycemic consult placed. * BMP, Mg, and Phos Q4h * POC glucose Q1h -DANIEL: Acute on chronic; history of CKD Likely 2/2 to dehydration as status improved with IVFs BUN 39, Creatinine 1.94, eGFR 34 IVFs as above BMP as above -Hyponatremia: 130mmol/L upon admission Most likely 2/2 to hyperglycemia (pseudohypernatremia) -Recurrent Falls: Patient states that he has fallen 10-15 times within the last 2 weeks. This could be 2/2 to hypoglycemia. Patient counseled on risks of falls. He takes pride in his independency and agrees that he needs to reduce fall risk to avoid complications of a fall. May be interested in use of cane or walker during times of instability. * PT consult Admission and Anticipated Discharge Date Admission Date: April 10, 2024 Supervising Attestation Patient was admitted earlier this morning by the night team. He was seen mid afternoon by myself and the day team. Please see the overnight team's note and attestation. Brief update, patient feeling generally well. Improved glycemic control; electrolytes remain acceptable other slight uptick in serum creatinine on most recent BMP. He has gotten some diabetes education; we briefly talked about home insulin. Continue current care. Monitor electrolytes. Subjective Patient is an 80 year old male with a PMH of uncontrolled DMT2, CKD, and HTN who presented to the ED for lower extremity weakness, repeated falls, and LUE tremor. Patient states that he has noticed decreased strength in his legs which has resulted in 10-15 falls within the last 2 weeks. He is also concerned about his left arm which has had a tremor for around 2 weeks. He quit taking his metformin recently and also ran out of his TrCuPcAkE & other things you bakeity. He has also stopped monitoring his blood sugar at home, but his said it typically was always 250+ when asked. During this time he has been experiencing polyuria and polydipsia, but denies, nausea, vomiting, dizziness, light headedness, chest pain. Review of Systems Constitutional: Denies fever, fatigue, sudden weight loss Respiratory: States he has had a cough and producing yellow sputum for the past few weeks. Denies SOB, hemoptysis Cardiovascular: Additional Comments: States he sometimes has mild leg swelling, Denies chest pain, heart palpitations Gastrointestinal: States he often has constipation. Denies other changes in bowel habits, hematochezia, abdominal pain Integumentary: Concerned with bruising along left forearm associated with frequent falls. Physical Exam Physical Exam: Well appearing, no acute distress, pleasant Respiratory: Lungs CTAB without wheezes, rales, rhonchi, symmetrical chest wall expansion Cardiovascular: RRR without murmurs, rubs, gallops. 1+ pitting edema in bilateral lower extremities Skin: Bruising throughout majority of left forearm, some on right forearm Toenails yellow Neurologic: CN II-IX grossly in tact. slight LUE tremor this am which has improved by this afternoon. Results & Data Vital Signs (Past 12 Hours) Vital Signs Temp Pulse Pulse Resp BP BP Pulse Ox 04/10/24 08:59 87 12 159/94 H 98 04/10/24 08:40 89 16 137/100 99 04/10/24 08:07 89 04/10/24 07:47 88 15 154/94 H 98 04/10/24 06:33 89 20 98 04/10/24 05:30 89 14 163/97 H 99 04/10/24 04:04 86 12 146/92 H 97 04/10/24 03:55 93 H 04/10/24 03:31 36.5 C 91 H 20 130/75 98 O2 Del Method 04/10/24 08:59 Room Air 04/10/24 08:40 Room Air 04/10/24 08:07 04/10/24 07:47 Room Air 04/10/24 06:33 Room Air 04/10/24 05:30 Room Air 04/10/24 04:04 Room Air 04/10/24 03:55 04/10/24 03:31 Room Air Resident Supervision Co-Signing Physician Notes Resident Attestation I was personally present during medical student and patient encounter and independently interviewed and examined the patient and verified the hernandez history and physical, reviewed labs and image studies, discussed the case with Carlito Kilgore, and agree with the above mentioned findings and care plan. Patient is an 78 y/o M w/ PMHx of HTN, uncontrolled DM-II, CKD (baseline creatinine 1.6-1.8), and HLD who was admitted due to hyperglycemia. During our discussion, patient states that he was only using Metformin 1000 mg daily and Trulicity at home, but stopped using Metformin due to "it being bad for you" and has not been able to cover the cost of Trulicity. Has not had antiglycemic agents for at least 1-2 months. When asked whether he had discussed using insulin with his PCP, patient states that they had but he did not wish to proceed with this therapy option. When discussing diet, patient states he indulges his cravings and instead of drinking water he drinks Radha tea since he believes water constipated him. He stopped taking his blood sugar at home around 1-2 months ago, and when asked what the value of his bsg looked like when he did take his blood sugar he states he does not recall but was much higher than 250. At the time of evaluation he was pleasant, conversational, AAOx3, and in NAD. His bsg at time of admission was found to be ~780 w/o AG, and had preceding b/l LE weakness, hand tremors, and recurrent falls that are concerning for prolonged hyperglycemia/electrolyte abnormalities and possibly HHS. Also had associated pseudohyponatremia which corrected to 135 when accounting for hyperglycemia. He was placed on an insulin drip and a pharmacy glycemic consult was placed. Bsg checks q1h and BMP q4h. For fluids he was given NSS + KCl set to stop after 2 bags depending on electrolyte and bsg status. After drip is stopped, will initiation Subq insulin regimen. Patient did not seem very interested in insulin therapy after discharge but seemed more open to it later in the day. Will revisit prior to discharge. Has acute on chronic kidney injury, likely secondary to dehydrated state at time of arrival. Improvement noted with Cr now closer to baseline after IVF administration suggestive of potential pre renal etiology. Continue IVF as above. Monitor am labs. Patient states he has had recurrent falls, especially these last few weeks. Possible this was related to his initial weakness at the time of presentation which could in turn be related to his electrolyte abnormalities versus underlyin g deconditioning. PT/OT consulted. Otherwise as above. Resident Activity Tracking Resident Involvement: Resident Care Provided Care Provided: Adult [facility] Medicine
[2024-04-10 18:39] LABS: BUN Creatinine Ratio 17.3 (10-20); Calcium 9.2 mg/dl (8.6-10.3); Creatinine Clr Calc Pharmacy 26.1 ml/min; Phosphorus 3.5 mg/dl (2.5-4.9); Potassium 4.4 mmol/L (3.5-5.1)
[2024-04-10 23:08] LABS: BUN Creatinine Ratio 19.8 (10-20); Calcium 9.1 mg/dl (8.6-10.3); Creatinine Clr Calc Pharmacy 27.3 ml/min; Phosphorus 3.3 mg/dl (2.5-4.9); Potassium 4.6 mmol/L (3.5-5.1)
[2024-04-11] MEDS: INSULIN ASPART PER UNIT CHARGE SC SCH
[2024-04-11 03:00] LABS: BUN Creatinine Ratio 21.4 (10-20); Calcium 8.7 mg/dl (8.6-10.3); Creatinine Clr Calc Pharmacy 29.4 ml/min; Phosphorus 2.9 mg/dl (2.5-4.9); Potassium 3.7 mmol/L (3.5-5.1)
[2024-04-11] MEDS: LANTUS PER UNIT CHARGE SC SCH (08:11)
[2024-04-11] MEDS: TAMSULOSIN HCL 0.4 MG CAP PO SCH (09:33)
--- NOTE | 2024-04-11 10:48 | Hospitalist Progress Note ---
Date of Service April 11, 2024 Assessment & Plan (1) Hyperglycemia due to diabetes mellitus: (2) DANIEL (acute kidney injury): (3) Acute hyponatremia: (4) Uncontrolled type 2 diabetes mellitus with hyperglycemia, without long-term current use of insulin: (5) Chronic kidney disease, stage III (moderate): (6) Dyslipidemia: (7) Hypertension: (8) Fall: (9) Urinary retention: Plan ## Urinary retention - Patient's states that at home he urinates and then has to once more very soon after - Had to be straight cathed x2 last night after bladder scan revealed volume of >700 mL - No known history of BPH, however, given coming appt with urology and him being essentially asymptomatic when his bladder is full ~800 mL suspect maybe this was an ongoing problem for him - Will encourage increased ambulation - Bladder scan if patient c/o abdominal pain or goes > 4 hours w/o voiding; straight cath if volume >700 mL - Add Flomax 0.4 mg; may consider Springer catheter tomorrow if urinary retention persists - Continue to monitor ## DANIEL: Acute on chronic; history of CKD - Likely 2/2 to dehydration plus current LUTOB - am Cr of 2.20 (baseline is 1.6-1.8) - Manage LUTOB as above - Continue IVF - BMP as above ## Acute hyperglycemia; Uncontrolled type II DM - Patient presented to the ED with blood glucose of 771. Experiencing weakness, polyuria, polydipsia. - HbA1C >16.9 - Bsg now in appropriate range with SubQ insulin; pharmacy glycemic consult - Discussed insulin therapy continuation after discharge, but patient stated he did not want to use this due to him not wanting to "become addicted". - Will continue discussion/education for outpatient glycemic control, which would ideally be with insulin given his presenting state if patient agreeable. Could consider fixed dose insulin with Metformin as an alternative. ## Hyponatremia - Pseudohyponatremia due to hyperglycemia at time of admission - Mild hyponatremia this morning which could be a consequence of IVF given yesterday w/ insulin - Asymptomatic - Monitor am labs ## Recurrent Falls - Patient reports 10-15 falls within the last 2 weeks. - Could have been a consequence of his hyperglycemia at the time, but given need for walker after admission when he doesn't use one at home may also suggest underlying ambulatory dysfunction. - PT/OT consult VTE ppx: Lovenox Diet: DM-II, HH Admission and Anticipated Discharge Date Admission Date: April 10, 2024 Supervising Physician Co-Signing Physician Notes ATTESTATION I also saw the patient and confirmed hernandez portions of the history and exam. I agree with the impression and plan in the resident documentation, and as summarized below. Feeling better. He was amatory in the hallway with a walker. Unfortunately, seems to be having some urinary retention - straight cath twice today for about 700 mL. Flomax has been added. He already scheduled with urology as an outpatient, I assume for the same issue. We talked about insulin, unfortunately he does have some misconceptions regarding its " addictive" nature. EXAM 120/69, 92, 18, 36.6, 90% room air Alert. Pleasant. CV Regular Lungs CTA DATA Labs Sodium 134, Potassium 3.7, BUN 47, Cr 2.20 Imaging Micro Urine culture peding IMPRESSION & PLAN I agree with the impression and plan as noted in the resident documentation. Straight cath after scan if needed Culture pending Continue diabetes education; in the least, once daily long acting would be a start. Will need outpatient urology follow up; if recurrent obstruciton, may need d/c with springer/ Additional per resident documentation Subjective Patient evaluated at bedside and AAOx3, and in NAD. Nursing reports that patient had to be straight cathed twice last night due to urinary retention. No known history of BPH and he does not take meds like Flomax at home, but states he does have an appointment with a Urologist on 04/16/24 "for something in his kidneys". Does not endorse any abdominal pain or urinary symptoms. States his hand tremors are still present but improved compared to yesterday. No chest pain, SOB, fevers, chills, or any other symptom. Review of Systems Review of Systems: As above. Physical Exam Physical Exam: Gen: NAD, alert, interactive, improved mildly tremulous UE Resp:Non-labored, no wheezing/rhonchi/rales, CTAB CV:RRR, normal S1/S2, no M/R/G Abd: Soft, non-distended, no TTP, normoactive bowels, no masses Skin: No rashes lesions or erythema Results & Data Results & Data Vital Signs (Past 12 Hours) Vital Signs Temp Pulse Pulse Resp BP Pulse Ox O2 Del Method 04/11/24 07:41 36.5 C 87 18 118/71 97 Room Air 04/11/24 07:36 92 H 04/11/24 04:20 36.8 C 80 18 120/60 96 Room Air 04/11/24 00:47 88 04/10/24 23:53 36.7 C 88 18 132/64 98 Room Air Resident Activity Tracking Resident Involvement: Resident Care Provided Care Provided: Adult Hospital Medicine (8) Fall Encounter type: initial encounter Qualified Code(s): W19.XXXA - Unspecified fall, initial encounter
[2024-04-11 16:51] LABS: Appearance Urine Cloudy (Clear); Bacteria Urine Automated None Seen (None Seen); Bilirubin Urine Negative (Negative); Blood Urine Trace (Negative); Cast Urine Automated 0-2 /lpf (0-2); Color Urine Yellow; Epithelial Cell Urine Auto 0-2 /hpf (0-2); Glucose Urine UA 3+ (Negative); Ketones Urine Trace (Negative); Leukocyte Esterase Urine 2+ (Negative); Nitrite Urine Negative (Negative); Protein Urine 1+ (Negative); RBC Urine Automated 0-2 /hpf (0-2); Specific Gravity Urine 1.024 (1.000-1.030); Urobilinogen Urine Negative (Negative); WBC Urine Automated >50 /hpf (0-5)
[2024-04-12 07:32] LABS: Hematocrit (blood only) 35.6 % (42.0-52.0); Hemoglobin 12.2 g/dl (14.0-18.0); Mean Corpuscular Hemoglobin 29.6 pg (25.0-34.0); Mean Corpuscular Hgb Conc 34.3 g/dL (32.0-36.0); Mean Corpuscular Volume 86.4 fL (80.0-100.0); Mean Platelet Volume 12.1 fL (9.4-12.4); Platelet Count 257 K/uL (130-400); RDW Coefficient of Variation 12.5 % (11.5-14.5); RDW Standard Deviation 39.6 fL (36.4-46.3); Red Blood Count 4.12 M/uL (4.70-6.10)
[2024-04-12 07:42] LABS: BUN Creatinine Ratio 26.9 (10-20); Creatinine Clr Calc Pharmacy 37.8 ml/min; Potassium 3.9 mmol/L (3.5-5.1)
[2024-04-12] MEDS: LANTUS PER UNIT CHARGE SC SCH ×2 (08:28→20:31)
[2024-04-12] MEDS: ENOXAPARIN INJ 30 MG/0.3 ML SYR SQ SCH (08:30)
--- NOTE | 2024-04-12 09:54 | Hospitalist Progress Note ---
Date of Service April 12, 2024 Assessment & Plan (1) Hyperglycemia due to diabetes mellitus: (2) DANIEL (acute kidney injury): (3) Acute hyponatremia: (4) Uncontrolled type 2 diabetes mellitus with hyperglycemia, without long-term current use of insulin: (5) Chronic kidney disease, stage III (moderate): (6) Dyslipidemia: (7) Hypertension: (8) Fall: (9) Urinary retention: Plan ## Urinary retention - Patient's states that at home he urinates and then has to once more very soon after - Straight cathed due to retention; max cath drain has been ~1100 mL - Given sxs history as well as uncontrolled DM, plus him being essentially asymptomatic when his bladder is full ~800 mL (bladder is used to having this volume), suspect this is either BPH related or a combination of BPH and neurogenic bladder from uncontrolled DM. - Will encourage increased ambulation - Bladder scan if patient c/o abdominal pain or goes > 4 hours w/o voiding. If still retaining, will discuss Springer catheter - CTAP w/o contrast w/o kidney stones, but note an enlarged prostate and thickened bladder alicea which is likely chronic - Continue Flomax 0.4 mg daily - Discussed case with Urology, and will coordinate outpatient follow up for further evaluation - Continue to monitor ## DANIEL: Acute on chronic; history of CKD - am Cr improved and within baseline range at 1.71 (baseline is 1.6-1.8) - Suspect more frequent bladder emptying may have played a role in improvement of renal function Suspect likely post-renal etiology - BMP as above ## Acute hyperglycemia; Uncontrolled type II DM - Patient presented to the ED with blood glucose of 771. Experiencing weakness, polyuria, polydipsia. - HbA1C >16.9 - Bsg now in appropriate range with SubQ insulin; pharmacy glycemic consult - Will continue discussion/education for outpatient glycemic control, which would ideally be with insulin given his presenting state if patient agreeable. Could consider fixed dose insulin with Metformin as an alternative. ## Hyponatremia - Pseudohyponatremia due to hyperglycemia at time of admission - Stable; Na of 135 this am - Monitor am labs ## Recurrent Falls - Patient reports 10-15 falls within the last 2 weeks. - Could have been a consequence of his hyperglycemia at the time, but given need for walker after admission when he doesn't use one at home may also suggest underlying ambulatory dysfunction. - Continue ambulating around ceja with help - PT/OT consult VTE ppx: Lovenox Diet: DM-II, HH Admission and Anticipated Discharge Date Admission Date: April 10, 2024 Supervising Physician Co-Signing Physician Notes ATTESTATION I also saw the patient and confirmed hernandez portions of the history and exam. I agree with the impression and plan in the resident documentation, and as summarized below. Discussion with patient and today about two main topics - BPH with obstruction and the likelihood of leaving with a springer and using insulin to control his diabetes. While opposed to both ideas yesterday, is coming around to accepting if it will facilitate discharge. EXAM VSS, Afebrile Alert. Pleasant. CV Regular Lungs CTA DATA Labs HgB 12.2 Sodium 135, Potassium 3.9, BUN 46, Cr 1.[address] negative for obstructive stone; does note prostatic hypertrophy and chronic bladder wall thickening IMPRESSION & PLAN I agree with the impression and plan as noted in the resident documentation. 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 Additional per resident documentation Subjective Patient evaluated at bedside, and found to be AAOx3, afebrile, and in NAD. Denies any new symptoms such as fevers, chills, chest pain, SOB, abdominal pain, flank pain, urinary symptoms, or any other sxs. Nursing states patient had to be straight cathed last night due to bladder scan showing > 800 mL. This morning, patient once more with bladder volume of ~ 800 mL. No abdominal or suprapubic pain associated to this. Patient has been walking around unit with assistance from nursing. Review of Systems Review of Systems: As above. Physical Exam Physical Exam: Gen: NAD, alert, interactive, improved mildly tremulous UE Resp:Non-labored, no wheezing/rhonchi/rales, CTAB CV:RRR, normal S1/S2, no M/R/G Skin: No rashes lesions or erythema Results & Data Results & Data Vital Signs (Past 12 Hours) Vital Signs Temp Pulse Pulse Resp BP Pulse Ox O2 Del Method 04/12/24 07:41 36.8 C 88 16 160/89 H 98 Room Air 04/12/24 07:38 85 04/12/24 03:58 36.7 C 89 16 138/76 98 Room Air 04/12/24 00:10 36.7 C 88 16 115/71 97 Room Air 04/11/24 22:53 72 Resident Activity Tracking Resident Involvement: Resident Care Provided Care Provided: Adult Hospital Medicine (8) Fall Encounter type: initial encounter Qualified Code(s): W19.XXXA - Unspecified fall, initial encounter
--- NOTE | 2024-04-12 11:20 | CT Scan Report ---
CT OF THE ABDOMEN AND PELVIS WITHOUT CONTRAST CLINICAL HISTORY: Urinary retention. COMPARISON STUDY: Renal ultrasound April 04, 2017. TECHNIQUE: Axial images of the abdomen and pelvis were obtained without IV contrast. Images were revi ewed in the axial, sagittal, and coronal planes. Automated exposure control was utilized for the kimberley dy. A dose lowering technique was utilized adhering to the principles of ALARA. FINDINGS: No pneumatosis, free air or portal venous gas is present. There is no hydronephrosis. There are no urinary calculi. Left kidney is atrophic. This is similar in appearance to renal ultrasound o f April 04, 2017. Unenhanced appearance of the right kidney is unremarkable. The prostate is enla rged, measuring 6 cm in transverse dimension. Moderate bladder wall thickening. Evaluation of the rem ainder of the abdomen and pelvis is suboptimal on this unenhanced exam. There is focal mild intrahepa tic biliary ductal dilatation within segment 6 of the liver on image 96 of 381. There is mild associa benjamin volume loss with capsular retraction. No associated lesion is identified on unenhanced exam. Sple en, adrenal glands and pancreas are unremarkable. There is no evidence for a bowel obstruction. A mod erate amount of stool within the colon and rectum is present. There is no lymphadenopathy. No fluid c ollections. No suspicious lesions within the visualized skeletal structures. IMPRESSION: 1. No urinary calculi or hydronephrosis. 2. Atrophic left kidney, similar in appearance to renal ultrasound of April 04, 2017. Unremarkabl e appearance of the right kidney on unenhanced exam. 3. Enlarged prostate. Bladder wall thickening, likely chronic. 4. Focal mild intrahepatic biliary ductal dilatation with mild volume loss within segment 6 of the li natasha. No associated lesion identified on unenhanced exam. This is of questionable significance. This c ould be assessed with a liver protocol MRI on an outpatient basis. ACT 112: Positive. There are findings on this exam that require communication between the performing entity and the patient following Patient Test Result Information Act ([place] Act 112) guidelines. Electronically signed by: Darci Woods M.D. 04/12/2024 11:18 AM
--- NOTE | 2024-04-12 15:07 | Pharmacy Report ---
Pharmacy Glycemic Short Note 2 - Date of Service April 12, 2024 - Glycemic Short BSG Results (Last 24 hours): 04/11/24 04/11/24 04/11/24 16:18 20:37 20:39 Glucose POC Glucose 247 H 318 H* 334 H* 04/12/24 04/12/24 04/12/24 06:29 07:10 11:38 Glucose 233 H POC Glucose 226 H 192 H OUTPATIENT ANTIDIABETIC REGIMEN: * Empagliflozin 10 mg PO daily * Glimepiride 4 mg PO BIDM * Trulicity 4.5 mg SC weekly (cost prohibitive at this time) HbA1c: >16.9% (04/10/24) ASSESSMENT: 04/12: * Patient received 25 units basal insulin and 47 units bolus insulins yesterday (total 72 units). * BSGs were elevated throughout the day yesterday [phone] mg/dl. * Fasting BSG was elevated at 233 mg/dl today. Basal dose increased by 40% today AM to 35 units. Also added a small basal scale at HS based on BSG. * Pre-lunch BSG trended down to 192 mg/dl. Novolog parameters were tightened this morning but loosened for dinner to avoid stacked higher doses of insulin and hypoglycemia. 04/10/24: * LAYNE is an 78 year old male who presented to ED early this morning due to progressive LE weakness. Patient also reports increased thirst and urination. * Blood sugar on presentation is 771 mg/dL w/ undetectably high HbA1c * Insulin infusion and IV fluids initiated in ED. Pharmacy consulted for glycemic management around lunchtime to aid in insulin gtt transition to SQ. * Anion gap of 11, carbon dioxide 25 mmol/L, serum osmolality 313 * Pertinent PMH includes uncontrolled T2DM (dietary indiscretions noted by patient's ) and DANIEL on CKD * Diet ordered with lunch, will give one-time basal order now * Patient is insulin naive, but with significantly elevated HbA1c so 0.2-0.3 units/kg/day is reasonable PLAN FOR INPATIENT GLYCEMIC CONTROL: * Hold outpatient diabetes medications * Basal insulin * Lantus 35 units (0.4 units/kg) QAM * Lantus 0/5/10 units scale at HS based on BSG * Bolus insulin * NovoLog per scale ACHS or Q6hrs while NPO * Goal Range: Low 110 mg/dL - High 140 mg/dL * Correction Factor: 15 mg/dL/unit * Nutritional / Prandial insulin per carb ratio of 1 unit per 5 grams CHO consumed
[2024-04-12] MEDS: POLYETHYLENE (MIRALAX) 17 GM PACK PO PRN (17:00)
[2024-04-13 07:02] LABS: Hematocrit (blood only) 34.1 % (42.0-52.0); Mean Corpuscular Hemoglobin 30.1 pg (25.0-34.0); Mean Corpuscular Hgb Conc 35.2 g/dL (32.0-36.0); Mean Corpuscular Volume 85.5 fL (80.0-100.0); Mean Platelet Volume 11.7 fL (9.4-12.4); Platelet Count 262 K/uL (130-400); RDW Coefficient of Variation 12.5 % (11.5-14.5); RDW Standard Deviation 39.1 fL (36.4-46.3); Red Blood Count 3.99 M/uL (4.70-6.10); White Blood Count 8.09 K/ul (4.8-10.8)
[2024-04-13 07:22] LABS: BUN Creatinine Ratio 24.1 (10-20); Creatinine Clr Calc Pharmacy 33.2 ml/min; Potassium 4.1 mmol/L (3.5-5.1)
[2024-04-13] MEDS ORDERED: PHARMACY GLYCEMIC MGMT CONSULT PRN (07:35)
--- NOTE | 2024-04-13 09:24 | Hospitalist Progress Note ---
Date of Service April 13, 2024 Assessment & Plan (1) Hyperglycemia due to diabetes mellitus: (2) DANIEL (acute kidney injury): (3) Acute hyponatremia: (4) Uncontrolled type 2 diabetes mellitus with hyperglycemia, without long-term current use of insulin: (5) Chronic kidney disease, stage III (moderate): (6) Dyslipidemia: (7) Hypertension: (8) Fall: (9) Urinary retention: Plan ## Urinary retention - Patient's states that at home he urinates and then has to once more very soon after - Straight cathed due to retention; max cath drain has been ~1300 mL - Given sxs history as well as uncontrolled DM, plus him being essentially asymptomatic when his bladder is full ~800 mL (bladder is used to having this volume), suspect this is either BPH related or a combination of BPH and neurogenic bladder from uncontrolled DM. - Will encourage increased ambulation - CTAP w/o contrast w/o kidney stones, but note an enlarged prostate and thickened bladder alicea which is likely chronic - Continue Flomax 0.4 mg daily - Given persistent retention, will insert Mott today - Discussed case with Urology, and will coordinate outpatient follow up for further evaluation - Continue to monitor ## DANIEL: Acute on chronic; history of CKD - am Cr in am labs increased to 1.95 (baseline is 1.6-1.8) - Suspect pre-renal plus post-renal etiology given poor oral hydration and urinary retention - Continue straight cath as above and encourage increased PO hydration - BMP as above ## Acute hyperglycemia; Uncontrolled type II DM - Patient presented to the ED with blood glucose of 771. Experiencing weakness, polyuria, polydipsia prior to admission. - HbA1C >16.9 - Bsg now in appropriate range with SubQ insulin; pharmacy glycemic consult - Will continue discussion/education for outpatient glycemic control, which woul d ideally be with insulin given his presenting state if patient agreeable. Could consider fixed dose insulin with Metformin as an alternative. ## Hyponatremia - Resolved. am labs w/ Na of 135 ## Recurrent Falls - Patient reports 10-15 falls within the last 2 weeks. - Could have been a consequence of his hyperglycemia at the time, but given need for walker after admission when he doesn't use one at home may also suggest underlying ambulatory dysfunction. - Continue ambulating around ceja with help - PT/OT evaluated and recc home health with use of walker VTE ppx: Lovenox Diet: DM-II, HH Admission and Anticipated Discharge Date Admission Date: April 10, 2024 Supervising Physician Co-Signing Physician Notes I personally examined the patient and verified all hernandez points of history and exam, discussed case, and agree with decision making with Dr Corona feeling better. Would like to go home. Extensive discussion on urinary retention as well as diabetes. expressed more understanding than himas he started to express more understanding, he turned the discussion of high sugars leading to clogged arteries leading to untimely demise into the broken analogy that 1 could also in a car accident on any given day. I tried to discuss that 1 is essentially bad luck and the other is the choice he has control over, to which she then changed to falling out of a tree hunting. At that point I gave up for today's discussions, at least his was expressing a better understanding. Vitals noted, in general he is awake and alert oriented pleasantly stubborn but no distress. Breathing unlabored no accessory muscle use good effort. Skin without rashes pallor or icterus. Neuro without focal deficits. His stubbornness precludes a decent assessment of judgment and insight. Mott in place. 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 an d urinary retention Mott now in place Flomax added this admission Outpatient urology follow up DM2, uncontrolled continue to adjust med management, extensive discussion on the critical role of lifestyle driving his type 2 diabetes, as well as "why to care" ("high sugars clog arteries and ")once he started to express an understanding, he got more defensive and shifted arguments towards the fact that a human being could on any given day of any given thing, while refusing to acknowledge there is a rather significant difference about factors you have a choice and control over rather than factors of randomness and bad luck. Additional per resident documentation Subjective Patient seen at bedside and found to be AAOx3, sitting on bedside chair, comfortable, and in NAD. Patient has not been able to urinate spontaneously and was straight cathed overnight due to urinary retention of >800 mL with drainage of 950 mL. Still no symptoms. Review of Systems Review of Systems: As above. Physical Exam Physical Exam: Gen: NAD, alert, interactive, improved mildly tremulous UE Resp:Non-labored, no wheezing/rhonchi/rales, CTAB CV:RRR, normal S1/S2, no M/R/G Skin: No rashes lesions or erythema Results & Data Results & Data Vital Signs (Past 12 Hours) Vital Signs Temp Pulse Pulse Resp BP Pulse Ox O2 Del Method 04/13/24 07:39 36.5 C 84 18 124/71 98 Room Air 04/13/24 07:28 66 04/13/24 04:41 36.5 C 85 17 125/68 98 Room Air 04/12/24 23:06 91 H 04/12/24 22:28 36.4 C L 75 19 143/76 H 98 Room Air Resident Activity Tracking Resident Involvement: Resident Care Provided Care Provided: Adult Hospital Medicine (8) Fall Encounter type: initial encounter Qualified Code(s): W19.XXXA - Unspecified fall, initial encounter
--- NOTE | 2024-04-13 19:35 | Billing Data ---
Date of Service April 13, 2024 Coding Level of Care Code 08547 SUB INP/OBS CARE
[2024-04-13] MEDS: POLYETHYLENE (MIRALAX) 17 GM PACK PO SCH (20:33)
[2024-04-14 07:38] LABS: Hematocrit (blood only) 36.4 % (42.0-52.0); Hemoglobin 12.4 g/dl (14.0-18.0); Mean Corpuscular Hemoglobin 29.4 pg (25.0-34.0); Mean Corpuscular Hgb Conc 34.1 g/dL (32.0-36.0); Mean Corpuscular Volume 86.3 fL (80.0-100.0); Mean Platelet Volume 11.8 fL (9.4-12.4); Platelet Count 285 K/uL (130-400); RDW Coefficient of Variation 12.4 % (11.5-14.5); RDW Standard Deviation 39.2 fL (36.4-46.3); Red Blood Count 4.22 M/uL (4.70-6.10); White Blood Count 7.84 K/ul (4.8-10.8)
[2024-04-14 07:41] LABS: BUN Creatinine Ratio 22.5 (10-20); Calcium 9.1 mg/dl (8.6-10.3); Creatinine Clr Calc Pharmacy 32.3 ml/min; Potassium 4.3 mmol/L (3.5-5.1)
[2024-04-14] MEDS: LANTUS PER UNIT CHARGE SC SCH (08:52)
--- NOTE | 2024-04-14 09:34 | Discharge Summary ---
Date of Service April 14, 2024 Admission HPI Per Admitting Provider Fady is a 78M w/ PMH of uncontrolled DM2 w/ CKD, HLD, HTN, and B12 deficiency who presents for worsening lower extremity weakness and upper extremity tremors. Patient presents to the emergency department today due to progressive lower extremity weakness and intermittent upper extremity tremors over the last few weeks. He was accompanied by his and a friend who are worried about his wellbeing. Patient notes that over the last few weeks he has become progressively more thirsty and has been urinating constantly, to the point of incontinence. notes that patient experiences alot of dietary indiscretions (enjoys [employer] pies) and is not as mobile as he used to be (due to leg weakness/discomfort). Patient denies any chest pain, dyspnea, lightheadedness, dizziness, nausea, emesis, fevers, chills, or abdominal pain. He continues to move bowels regularly. Patient endorses increased urinary frequency without dysuria, suprapubic pain, or flank pain. notes that his urine is very concentrated and 'sticky'. Patient has been struggling to obtain an Rx for Trulicity, which used to work well for him, he notes that the cost is prohibitive at this time. He continues to take his other anti-diabetic medications as prescribed. Patient does not take his blood sugars regularly, citing that the BSG pricks have made all his fingers numb/calloused. Admission Exam Per Admitting Provider Gen: NAD, alert, interactive, mildly tremulous UE HEENT: Supple, no LAD, no thyromegaly, no JVD, dry mucous membranes Resp:Non-labored, no wheezing/rhonchi/rales, CTAB CV:RRR, normal S1/S2, no M/R/G Abd: Soft, non-distended, no TTP, normoactive bowels, no masses Extr: 2+ dp bilaterally, no edema Skin: No rashes lesions or erythema Principal Diagnosis Uncontrolled DM-II, Urinary retention Discharge Exam Gen: NAD, alert, interactive Resp:Non-labored, no wheezing/rhonchi/rales, CTAB CV:RRR, normal S1/S2, no M/R/G GI: non-distended, non-tender, soft : Mott catheter in place with clear urine in the line and collecting bag w/o blood or sediment Skin: No rashes lesions or erythema Discharge Data Allergies Allergy/AdvReac Type Severity Reaction Status Date / Time No Known Allergies Allergy Unverified 04/10/24 08:20 Consultations 04/10/24 05:31 ED Decision to Admit Stat Ordered Studies 04/12/24 09:32 CT Abd and Pelvis [CT abd pelvis wo con] Routine Diabetes Follow up Diabetes Follow-up Needed for HgbA1c >9% Hospital Course (1) Hyperglycemia due to diabetes mellitus: (2) DANIEL (acute kidney injury): (3) Acute hyponatremia: (4) Uncontrolled type 2 diabetes mellitus with hyperglycemia, without long-term current use of insulin: (5) Chronic kidney disease, stage III (moderate): (6) Dyslipidemia: (7) Hypertension: (8) Fall: (9) Urinary retention: Plan ## Acute hyperglycemia; Uncontrolled type II DM - Patient presented to the ED with blood glucose of 771. Experiencing weakness, polyuria, polydipsia prior to admission. - HbA1C >16.9 - Bsg now in appropriate range with SubQ insulin - Had extensive discussions as to the importance of having a food lifestyle with a good diet and some exercise since this plays the biggest role in achieving control if his DM-II. - Patient agreed to continue once daily insulin after discharge. Script sent. - Strongly encouraged regular f/u with PCP for monitoring of glycemic control ## Urinary retention - Patient's states that at home he urinates and then has to once more very soon after - Straight cathed due to retention; max cath drain has been ~1300 mL - Given sxs history as well as uncontrolled DM, plus him being essentially asymptomatic when his bladder is full ~800 mL (bladder is used to having this volume), suspect this is either BPH related or a combination of BPH and neurogenic bladder from uncontrolled DM. - CTAP w/o contrast w/o kidney stones, but note an enlarged prostate and thickened bladder alicea which is likely chronic - Continue Flomax 0.4 mg daily after discharge - Given persistent retention, Mott inserted and will discharge with this until evaluated by urology as an outpatient ## DANIEL: Acute on chronic; history of CKD - am Cr in am labs increased to 1.95 (baseline is 1.6-1.8) - Suspect pre-renal plus post-renal etiology given poor oral hydration and urinary retention - Mott inserted to prevent urine build up and discussed need for increased oral hydration with water ## Recurrent Falls - Patient reports 10-15 falls within the last 2 weeks. - Could have been a consequence of his hyperglycemia at the time, but given need for walker after admission when he doesn't use one at home may also suggest underlying ambulatory dysfunction. - PT/OT evaluated and recc home health with use of walker. CM coordinated and will discharge today with these. Total Time Total Time Spent Total Time Spent (In Minutes): <30 Discharge Plan Discharge Items Patient Disposition: Home - Self-Care Reason For Visit: HYPERGLYCEMIA, WEAKNESS Discharge Diagnosis: Uncontrolled Diabetes Mellitus Type 2, BPH Activity: Per Instructions section Non-emergency contact: Primary Care Provider and Urologist Call non-emergency contact if: your symptoms worsen and your temperature is above 101 Follow-up/Referrals: Star Duron MD [Primary Care Provider] - 04/21/24 3:00 pm (Hospital follow up scheduled April 21 at 3:00 with Jordyn Trammell at the [place] location.) Diet: Carb Consistent or DM2 and Heart Healthy Addtl Attending Provider Instructions: urinary retention (unable to empty your bladder) -Your inability to empty your bladder is an ongoing problem - this appears to at least relate to having a big prostate (see below) and also could be related to diabetic-induced nerve damage -your prostate is definitely part of the problem: the prostate sits at the end of the bladder, and as we discussed, the bladder acts mostly like a water balloon - the more it is filled, the more it can recoil back. when the prostate gets bigger, it acts to pinch the end of the bladder, making it so that it is harder for the bladder to empty. as the prostate gets bigger (slowly over time) then where the bladder empties gets more and more pinched making it harder and harder for the bladder to empty. because this happens over years and years, your nerves don't get as sensitive to being full as they used to be. typically people feel like they have to pee with about 8-10 ounces in their bladder - when we were emptying your bladder with the straight catheterization (in and out cath when your bladder is full) we were draining the better part of 25-35 ounces or so - and despite that large amount you didn't feel like you had to pee (definitely showing that this has been going on for a while, and unfortunately showing that you can't trust how you're feeling to decide if you're OK or not) -because of how badly controlled your diabetes is (see below) it's currently kind of impossible to rule out that you don't also have damage to the nerves to your bladder making it not work at all - but the urology team as they follow you over time will be able to see if your bladder muscle seems to have decent tone/muscle contraction, or if it seems like it's just a "floppy sack" -for now, without a catheter to drain your bladder, your body has proven that your bladder just fills to capacity (or more) and puts back pressure on your ki dneys - this inevitably leads to kidney failure - this is why right now the "best bad option" is to leave the catheter in (despite the infection risk) -right now we have you on tamsulosin and finasteride (tamsulosin is a medication to help relax the muscle in the prostate, finasteride helps to slowly shink the prostate but takes months) -the urology team will see you in the office - and they'll see how things are going in terms of response to medications and/or the need to follow through with a procedure to get the prostate out of the way more (and/or further testing to help figure out more if your bladder has any muscle contraction ability left in it) uncontrolled diabetes -bottom line: this is an enormous problem causing you a ton of damage but you're in a pretty big state of denial about this. i hate to be so blunt, but given that you're a typical old stubborn [place] i need to make sure to get your attention! (and trust me, i love the typical stubborn old [place] type, but i also know that you guys will often kill yourselves with denial and ignoring what's actually happening until it's too late) -the main problem with diabetes is that high sugars clog arteries - the higher you run, and the longer you run high, the more you're clogging arteries you can't get back -as a reasonable rule of thumb, any time your sugar is above about 150-160 you're doing some degree of damage (and higher is usually more damage). as it relates to an A1c readings (which is a measure of how sugar covered your red blood cells are - which creates a good idea of sugar averages for the last 3 months) an A1c above 7% relates to high sugars clogging arteries - your current A1c was above 16.9% (the lab quits counting higher than that) and your prior A1c readings have been between 11.2 and 15.9 over the last 2 years. -the most "famous" problems from high sugars clogging arteries are things like kidney failure, blindness, and nerve damage, but the most common are heart attacks and strokes. it's actually pretty remarkable that you haven't had significant heart attacks and strokes already (your brain MRI does show findings consistent with small blocked blood vessels) - but typically these short of problems catch up with everyone eventually -as you openly noted, the biggest thing causing type 2 diabetes is the sugars/starches in your diet. as we reviewed your diet, you eat almost entirely starches and some sugars. if you were to change to fruits and vegetables as well as lean sources of protein, that could make an awfully big immediate diff erence -you've expressed a lot of hesitation about medications, which a lot of people do - the problem is that without a change in your eating habits, and without medications, you're basically just hoping that you continue to get gwyn even though you have an ability to control this. you tried to give the (really weak, mostly unrelated) argument as we talked about this that you could get hit by a car and on any given day as well - the problem with using that to compare to the sugar killing you is that you actually have a lot of control on what your sugar is doing, whereas getting hit by a reckless party bus driver is just terrible luck. the only way to really bring your example together with how you're killing yourself with your diabetes would be to say "i got hit by a car because i chose to cross the street with my eyes closed." - the sugar is something that by eating habit changes, medications, or both - you can have a lot of control over -we'd recommend a lot of medications to protect you from yourself right now - to keep you from clogging as many arteries as you probably are - but you have refused most of them (and it sound like mostly from bad information from friends rather than good information from people who take care of this stuff every day) -- with that in mind we'll at least send you on a once a day insulin (Lantus 40 units in the morning). usually when we're sending someone on insulin we'll have them also take a short acting insulin (humalog, novolog) at each meal to kick in and take care of what they've eaten, but for now it sounds like that's not something you're willing to do. once you change your mind, it's really easy to start a mealtime insulin as well - your PCP can always start that in the future whenever you're ready ---i'm sorry to be so hard on you with these instructions, but i really worry about your well being and it would be heartbreaking for you to realize that you should take care of yourself AFTER you've suffered some irreparable harm (once someone's had a heart attack or a big stroke, we can't give them back heart muscle or brain tissue). honestly, as poorly controlled as you've been for as long as you've been doing this, i'd say you've already "cheated and won the game" - so i'm really worried about how you'll do if you keep on tempting fate! Pending Studies at Discharge: No Stand-Alone Forms: [facility], Smoking Cessation Medications and DC Order Prescriptions: New tamsulosin 0.4 mg Capsule 0.4 mg PO QAM Qty: 30 0RF insulin glargine [Lantus Solostar U-100 Insulin] 100 unit/mL (3 mL) insulin pen 40 unit subcut DAILY Qty: 15 0RF (DME) pen needle,diabetic, disp unit 32 gauge x 32" needle See Rx Instructions .Route Qty: 100 0RF Rx Instructions: As directed Continued (DME) FreeStyle Sangeetha 14 Day [place] Misc See Rx Instructions .ROUTE .MEDSUPPLY Qty: 1 0RF Rx Instructions: As directed to monitor blood sugar (DME) FreeStyle Sangeetha 14 Day Sensor Kit See Rx Instructions .ROUTE .MEDSUPPLY Qty: 2 5RF Rx Instructions: As directed to monitor blood sugar - change every 14 days (DME) OneTouch Ultra Test Strip See Rx Instructions .Route Qty: 100 3RF Rx Instructions: USE TO CHECK BLOOD SUGARS TWICE A DAY cholecalciferol (vitamin D3) 2,000 unit capsule 2,000 units PO DAILY cetirizine 10 mg capsule 10 mg PO DAILY PRN (Reason: allergy symptoms) triamcinolone acetonide 0.1 % ointment 1 applic topical BID Qty: 30 1RF Discontinued glimepiride 4 mg tablet 4 mg PO .COMPLEX Qty: 180 3RF Rx Instructions: 4 mg PO TAKE ONE TABLET WITH BREAKFAST AND ONE WITH DINNER; dulaglutide 4.5 mg/0.5 mL pen injector 4.5 mg subcut .COMPLEX Qty: 2 11RF Rx Instructions: 4.5 mg subcutaneously once weekly; VERY EXPENSIVE HAS TROUBLE PURCHASING Jardiance 10 mg tablet 10 mg PO DAILY Qty: 30 2RF Discharge Orders: Discharge Order (Routine); Ordered 04/14/24 Ordered By: Marlene Patrick/Other Patient Handouts: Managing Type 2 Diabetes Admission Data Admit Date/Time: 04/10/24 06:00 Attending Provider: Ken Nance Admit Provider: Josefina Barker Primary Care Provider: Star Duron Other Providers: Marilou Ramesh Supervising Physician Co-Signing Physician Notes I personally examined the patient and verified all hernandez points of history and exam, discussed case, and agree with decision making with Dr Corona feels up to going home. somewhat constipated. discussed urinary retention and DM control again. Vitals noted, in general he is awake and alert oriented pleasantly stubborn but no distress. Breathing unlabored no accessory muscle use good effort. Skin without rashes pallor or icterus. Neuro without focal deficits. His stubbornness precludes a decent assessment of judgment and insight. Mott in place. 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 and urinary retention Mott now in place Flomax added this admission Outpatient urology follow up safe/stable for home DM2, uncontrolled continue to adjust med management, reiterated and wrote out extensive discussion on the critical role of lifestyle driving his type 2 diabetes, as well as "why to care" ("high sugars clog arteries and ")again intellectually seems to "get it" but seems so refractory to change habits or take meds that he doesn't really want to take that he is using denial as a mechanism to avoid thinking about changes he doesn't want to make or consequences he doesn't want to suffer. ideally: overhaul of eating habits and basal bolus insulin or multimodal med management with meds being weaned as lifestyle improvements regress insulin resistance; actual that he'll allow: lantus daily, possibly some degree of lifestyle change, ongoing hope that he won't suffer catastrophic consequences of his terrible glycemic control. Additional per resident documentation Resident Activity Tracking Resident Involvement: Resident Care Provided Care Provided: Adult Hospital Medicine
[2024-04-14] MEDS: MAGNESIUM HYDROXIDE SUSP 30 ML UDC PO ONE (12:47)
--- NOTE | 2024-04-14 17:30 | Billing Data ---
Date of Service April 14, 2024 Coding Level of Care Code 35685 IN/OBS DISCH 30 MIN/LESS
[2024-04-14] MEDS: SENNOSIDES 8.8 MG/5 ML UDC PO ONE (17:37)
[2024-04-15 07:12] LABS: Creatinine Clr Calc Pharmacy 36.5 ml/min
[2024-04-15 07:51] VITALS: RESP 16; TEMP 97.5; O2SAT 100
[2024-04-15] MEDS: ENOXAPARIN INJ 40 MG/0.4 ML SYR SQ SCH (08:55)
--- NOTE | 2024-04-15 09:50 | Pharmacy Report ---
Pharmacy Glycemic Short Note 2 - Date of Service April 15, 2024 - Glycemic Short BSG Results (Last 24 hours): 04/14/24 04/14/24 04/14/24 11:32 16:07 20:31 POC Glucose 157 H 75 175 H 04/15/24 07:52 POC Glucose 149 H OUTPATIENT ANTIDIABETIC REGIMEN: * Empagliflozin 10 mg PO daily * Glimepiride 4 mg PO BIDM * Trulicity 4.5 mg SC weekly (cost prohibitive at this time) HbA1c: >16.9% (04/10/24) ASSESSMENT: 04/15: * Patient received 30 units basal and 25 units bolus yesterday (total 55 units). * BSGs well controlled yesterday though dinner time BSG dropped to 75 mg/dl. * Novolog parameters loosened this morning to avoid hypoglycemia. Basal dose continued the same as yesterday. 04/12: * Patient received 25 units basal insulin and 47 units bolus insulins yesterday (total 72 units). * BSGs were elevated throughout the day yesterday [phone] mg/dl. * Fasting BSG was elevated at 233 mg/dl today. Basal dose increased by 40% today AM to 35 units. Also added a small basal scale at HS based on BSG. * Pre-lunch BSG trended down to 192 mg/dl. Novolog parameters were tightened this morning but loosened for dinner to avoid stacked higher doses of insulin and hypoglycemia. 04/10/24: * LAYNE is an 78 year old male who presented to ED early this morning due to progressive LE weakness. Patient also reports increased thirst and urination. * Blood sugar on presentation is 771 mg/dL w/ undetectably high HbA1c * Insulin infusion and IV fluids initiated in ED. Pharmacy consulted for glycemic management around lunchtime to aid in insulin gtt transition to SQ. * Anion gap of 11, carbon dioxide 25 mmol/L, serum osmolality 313 * Pertinent PMH includes uncontrolled T2DM (dietary indiscretions noted by patient's ) and DANIEL on CKD * Diet ordered with lunch, will give one-time basal order now * Patient is insulin naive, but with significantly elevated HbA1c so 0.2-0.3 units/kg/day is reasonable PLAN FOR INPATIENT GLYCEMIC CONTROL: * Hold outpatient diabetes medications * Basal insulin * Lantus 30 units SC QAM * Bolus insulin * NovoLog per scale ACHS or Q6hrs while NPO * Goal Range: Low 110 mg/dL - High 140 mg/dL * Correction Factor: 20 mg/dL/unit * Nutritional / Prandial insulin per carb ratio of 1 unit per 7 grams CHO consumed
[2024-04-15 10:50] VITALS: BP 163/84; PULSE 73
--- NOTE | 2024-04-15 11:03 | Hospitalist Progress Note ---
Date of Service April 14, 2024 Assessment & Plan (1) Hyperglycemia due to diabetes mellitus: (2) DANIEL (acute kidney injury): (3) Acute hyponatremia: (4) Uncontrolled type 2 diabetes mellitus with hyperglycemia, without long-term current use of insulin: (5) Chronic kidney disease, stage III (moderate): (6) Dyslipidemia: (7) Hypertension: (8) Fall: (9) Urinary retention: Plan ## Constipation - Patient not had a bm since admission - Poor PO hydration - Adjusted bowel regimen: increase Miralax frequency, Milk of Mag - Encourage PO hydration ## Acute hyperglycemia; Uncontrolled type II DM - Patient presented to the ED with blood glucose of 771. Experiencing weakness, polyuria, polydipsia prior to admission. - HbA1C >16.9 - Bsg now in appropriate range with SubQ insulin - Had extensive discussions as to the importance of having a food lifestyle with a good diet and some exercise since this plays the biggest role in achieving control if his DM-II. ## Urinary retention - Patient's states that at home he urinates and then has to once more very soon after - Straight cathed due to retention; max cath drain has been ~1300 mL - Given sxs history as well as uncontrolled DM, plus him being essentially asymptomatic when his bladder is full ~800 mL (bladder is used to having this volume), suspect this is either BPH related or a combination of BPH and neurogenic bladder from uncontrolled DM. - CTAP w/o contrast w/o kidney stones, but note an enlarged prostate and thickened bladder alicea which is likely chronic - Continue Flomax 0.4 mg daily - Given persistent retention, Mott inserted and will discharge with this until evaluated by urology as an outpatient ## DANIEL: Acute on chronic; history of CKD - am Cr in am labs increased to 1.95 (baseline is 1.6-1.8) - Suspect pre-renal plus post-renal etiology given poor oral hydration and urinary retention - Mott inserted to prevent urine build up and discussed need for increased oral hydration with water ## Recurrent Falls - Patient reports 10-15 falls within the last 2 weeks. - Could have been a consequence of his hyperglycemia at the time, but given need for walker after admission when he doesn't use one at home may also suggest underlying ambulatory dysfunction. - PT/OT evaluated and recc home health with use of walker Admission and Anticipated Discharge Date Admission Date: April 10, 2024 Supervising Physician Co-Signing Physician Notes I personally examined the patient and verified all hernandez points of history and exam, discussed case, and agree with decision making with Dr Corona feels up to going home. somewhat constipated. discussed urinary retention and DM control again. Vitals noted, in general he is awake and alert oriented pleasantly stubborn but no distress. Breathing unlabored no accessory muscle use good effort. Skin without rashes pallor or icterus. Neuro without focal deficits. His stubbornness precludes a decent assessment of judgment and insight. Mott in place. 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 and urinary retention Mott now in place Flomax added this admission Outpatient urology follow up safe/stable for home DM2, uncontrolled continue to adjust med management, reiterated and wrote out extensive discussion on the critical role of lifestyle driving his type 2 diabetes, as well as "why to care" ("high sugars clog arteries and ")again intellectually seems to "get it" but seems so refractory to change habits or take meds that he doesn't really want to take that he is using denial as a mechanism to avoid thinking about changes he doesn't want to make or consequences he doesn't want to suffer. ideally: overhaul of eating habits and basal bolus insulin or multimodal med management with meds being weaned as lifestyle improvements regress insulin resistance; actual that he'll allow: lantus daily, possibly some degree of lifestyle change, ongoing hope that he won't suffer catastrophic consequences of his terrible glycemic control. Additional per resident documentation Subjective Patient seen at bedside and found to be AAOx3, sitting on bedside chair, comfortable, and in NAD. No bowel movements since admission. No other systemic symptoms. Review of Systems Review of Systems: As above. Physical Exam Physical Exam: Gen: NAD, alert, interactive Resp:Non-labored, no wheezing/rhonchi/rales, CTAB CV:RRR, normal S1/S2, no M/R/G GI: non-distended, non-tender, soft : Mott catheter in place with clear urine in the line and collecting bag w/o blood or sediment Skin: No rashes lesions or erythema Results & Data Results & Data Vital Signs (Past 12 Hours) Vital Signs Temp Pulse Pulse Pulse Resp BP BP 04/15/24 10:48 36.4 C L 73 81 80 16 163/84 H 154/85 H 04/15/24 07:49 36.4 C L 80 16 154/85 H Pulse Ox O2 Del Method 04/15/24 10:48 100 04/15/24 07:49 100 Room Air Resident Activity Tracking Resident Involvement: Resident Care Provided Care Provided: Adult Hospital Medicine (8) Fall Encounter type: initial encounter Qualified Code(s): W19.XXXA - Unspecified fall, initial encounter
--- NOTE | 2024-04-15 19:28 | Communication Note ---
Date of Service: April 15, 2024 due to pt refusing dc due to lack of PM, date of service for discharge summary is 04/15/24, not 04/14/24. [facility] will not allow me to directly addend the dc summary itself.
--- NOTE | 2024-04-15 19:29 | Billing Data ---
Date of Service April 15, 2024 Coding Level of Care Code 22713 IN/OBS DISCH 30 MIN/LESS
--- NOTE | 2024-04-15 19:29 | Billing Data ---
Date of Service April 14, 2024 Coding Level of Care Code 21088 SUB INP/OBS CARE 50MIN Comment disregard 238 from 04/14, 233 on 04/14 instead (238 now 04/15)
== END 2024-04-15 12:37 | disposition home health service (06) | DRG 638 ==
LOC: SUATTDRO → ED 03:27 → EDINP 06:00 → SUATTDRO 06:00 → 2S 08:06 → 3W 04-14 21:48

== ENCOUNTER 2024-07-25 15:52 | Observation (INO) ==
--- NOTE | 2024-07-25 17:16 | Emergency Department Note ---
History of Present Illness General Chief complaint: Catheter Replacement Stated complaint: CATHETER LEAKING Time Seen by Provider: 07/25/24 16:50 History of Present Illness This is an 78-year-old male that presents to the emergency department via private vehicle with complaints of "urinary retention, catheter leaking". The patient states that he was seen here earlier today and had a Mott catheter placed. He notes that although it was draining initially, upon returning home he notes there has been no urine draining into the bag, rather has been leaking around the insertion point of urethral meatus. He also notes some yellow purulence from the urethral meatus as well. No fevers or chills. Not currently on antibiotics. He notes history of urologic procedure on May 21. He states he did have a Mott catheter for a bit of time but has not had one for about a month until this morning. He is here today noting malfunctioning catheter. He does note some mild fullness in the abdomen concerning for continued urinary retention. Home Medications Medication Instructions Recorded Confirmed Type cetirizine 10 mg capsule (Zyrtec) 10 mg PO DAILY PRN allergy symptoms 04/15/19 07/25/24 History cholecalciferol (vitamin D3) 50 2,000 units PO DAILY 04/15/19 07/25/24 History mcg (2,000 unit) capsule blood sugar diagnostic (OneTouch #100 ea 04/05/22 07/20/24 Rx Ultra Test strips) triamcinolone acetonide 0.1 % 1 applic topical BID #30 grams 04/03/24 07/20/24 Rx topical ointment pen needle,diabetic, disp unit 32 #100 ea 04/14/24 07/20/24 Rx gauge x 5/32", remover and disposal unit blood sugar diagnostic (Skully Helmetsuch #100 ea 04/20/24 07/20/24 Rx Verio test strips) blood-glucose meter (Skully HelmetsTouch #1 ea 04/20/24 07/20/24 Rx Verio Flex Meter) lancets 30 gauge (OneTouch Delica #100 ea 04/20/24 07/20/24 Rx Plus Lancet) nystatin 100,000 unit/gram topical 1 applic topical DAILY #30 grams 05/07/24 07/20/24 Rx powder acetaminophen 650 mg 1,300 mg PO Q12H PRN Pain 05/14/24 07/25/24 History tablet,extended release tamsulosin 0.4 mg capsule (Flomax) 0.4 mg PO QAM #90 caps 05/19/24 07/25/24 Rx phenazopyridine 200 mg tablet 200 mg PO Q8H PRN pain #10 tabs 05/21/24 07/25/24 Rx (Pyridium) oxybutynin chloride 5 mg tablet 5 mg PO PRN #30 tabs 05/27/24 07/25/24 Rx losartan 50 mg tablet 50 mg PO DAILY #90 tabs 06/15/24 07/25/24 Rx insulin glargine 100 unit/mL (3 36 unit subcut HS 07/25/24 07/25/24 History mL) subcutaneous pen (Lantus Solostar U-100 Insulin) Allergies Allergy/AdvReac Type Severity Reaction Status Date / Time No Known Allergies Allergy Verified 07/20/24 10:50 Past Med/Surg History Problem List (Updated 07/25/24 @ 20:09 by Kaylyn Brody PA-C) Hyperglycemia due to type 2 diabetes mellitus Acute kidney injury superimposed on chronic kidney disease UTI (urinary tract infection) Acute urinary retention (Acute) Anemia of chronic disease BPH w urinary obs/LUTS (Chronic) Proteinuria Vitamin D deficiency DM type 2 causing CKD stage 3 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 Vitamin B12 deficiency Right shoulder pain (Acute) Cataract, bilateral (Acute) Adjustment disorder (Acute) Medical History History of UTI 04/10/24 hospitalization - treated Liver lesion noticed on imaging - no other further direction was given as per patient 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 BPH (benign prostatic hyperplasia) Mott catheter in place last changed 05/05/24 Urinary retention Uncontrolled type 2 diabetes mellitus with hyperglycemia, without long-term current use of insulin - IDDM - as of 05/14/24- stopped taking insulin 4 days ago - no longer using latasha system - monitors glucose with onetouch - Hgb A1C >16.9 during 04/2024 admission Hypertension Dyslipidemia Chronic kidney disease, stage III (moderate) Dr Mccormack Surgical History Hx of tonsillectomy Hx of tooth extraction Status post orchiopexy Hx of right cataract extraction Family History Other Adopted Social History Smoking Status: Never smoker Tobacco Type: Cigarettes Age Started Using Tobacco: 13; Age Quit Using Tobacco: 53; packs per day: 1; Second Hand Exposure: No; Do You Dip or Chew Tobacco: No; Hx Alcohol Use: No Hx Substance Use: No Preferred Language: Beninese Communication Ability: Effective Slot Editor Required: No Beliefs That Will Affect Care: None marital status: Current Living Situation: Spouse current occupational status: employed 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 Feels Safe at Home: Yes Childhood Exposure to Second-Hand Smoke: Yes Diet: diabetic Dental Care, Regularly: No Physical Activity Frequency: Does not Exercise Seatbelt Use: sometimes Sunscreen Use: No Assistive Devices: Glasses Review of Systems A total of 10 systems reviewed and were otherwise negative Physical Exam Vital Signs Vital Signs - 24 hr 07/25/24 15:55 07/25/24 19:00 Temperature 36.3 C L Temperature Source Temporal Artery Scan Pulse Rate 93 H Pulse Rate [Finger] 80 Respiratory Rate 24 18 Blood Pressure 181/89 H Blood Pressure [Right Arm] 180/85 H Blood Pressure Mean 119 Blood Pressure Mean [Right Arm] 116 Pulse Oximetry 100 98 Oxygen Delivery Method Room Air Room Air Sepsis New/Unexplained Change in Mental Status No Sepsis Action Taken by Nursing No Action Required VITAL SIGNS - Vital signs and nursing notes were reviewed. Stable and afebrile. GENERAL -78-year-old male appearing his stated age who is in no acute distress. Communicates well with provider and answers questions appropriately. SKIN - Without rashes. HEAD - NC/AT. LUNGS - CTA CARDIAC - RRR ABDOMEN - Abdominal contour normal without pulsations or visible masses. BS normoactive all four quadrants. No tenderness, palpable masses, hepatosplenomegaly, or ascites noted. EXTREMITIES - No clubbing or peripheral cyanosis. +5/5 strength noted in UE/LE bilaterally. NEUROLOGIC - Cranial nerves grossly intact. PSYCH -alert, oriented and pleasant on exam GUFoley catheter noted with a small amount of purulence at urethral meatus. No bleeding. There is no urine draining into the bag. Course Administered Medications Sodium Chloride (Nss) 500 mls @ 125 mls/hr IV .Q4H ZAIN Stop: 07/25/24 22:59 Last Admin: 07/25/24 19:16 Dose: 125 mls/hr Documented By: VISHAL Discontinued Medications Daptomycin 300 mg/ Syringe 6 mls @ 3 mls/min IV NOW STA; Protocol Stop: 07/25/24 18:51 Last Admin: 07/25/24 19:15 Dose: 3 mls/min Documented By: VISHAL Medical Decision Making Laboratory Data 07/25/24 17:20 07/25/24 17:20 Lab Results 07/25/24 07/25/24 Range/Units 17:20 18:40 WBC 8.57 (4.8-10.8) K/ul RBC 3.61 L (4.70-6.10) M/uL Hgb 10.3 L (14.0-18.0) g/dl Hct 31.2 L (42.0-52.0) % MCV 86.4 (80.0-100.0) fL MCH 28.5 (25.0-34.0) pg MCHC 33.0 (32.0-36.0) g/dL RDW Std Deviation 45.5 (36.4-46.3) fL RDW Coeff of Hollis 14.3 (11.5-14.5) % Plt Count 250 (130-400) K/uL MPV 11.2 (9.4-12.4) fL Immature Gran % (Auto) 0.2 % Neut % (Auto) 71.3 % Lymph % (Auto) 17.3 % Wood % (Auto) 7.9 % Eos % (Auto) 2.7 % Baso % (Auto) 0.6 % Neut # (Auto) 6.11 (1.40-6.50) K/uL Lymph # (Auto) 1.48 (1.20-3.40) K/uL Wood # (Auto) 0.68 H (0.11-0.59) K/uL Eos # (Auto) 0.23 (0.00-0.50) K/uL Baso # (Auto) 0.05 (0.00-0.20) K/uL Immature Gran # (Auto) 0.02 (0.01-0.20) K/uL Sodium 136 (136-145) mmol/L Potassium 4.5 (3.5-5.1) mmol/L Chloride 105 (98-107) mmol/L Carbon Dioxide 24 (21-32) mmol/L Anion Gap 7 (3-11) BUN 47 H (6-23) mg/dl Creatinine 1.79 H (0.6-1.4) mg/dl Est Cr Clr Drug Dosing 39.3 ml/min eGFR 37.83 BUN/Creatinine Ratio 26.3 H (10-20) Glucose 393 H* (70-99(Fasting)) mg/dl Calcium 8.8 (8.6-10.3) mg/dl Total Bilirubin 0.3 (0.2-1.0) mg/dl AST 21 (13-39) U/L ALT 24 (7-52) U/L Alkaline Phosphatase 91 (34-104) U/L Total Protein 7.1 (6.0-8.3) gm/dl Albumin 3.7 (3.4-5.0) gm/dl Globulin 3.4 (2.5-4.0) gm/dl Albumin/Globulin Ratio 1.1 (0.9-2) Urine Color Yellow Urine Appearance Turbid A (Clear) Urine pH 5.5 (4.5-7.5) Ur Specific [place] 1.017 (1.000-1.030) Urine Protein 2+ H (Negative) Urine Glucose (UA) 3+ H (Negative) Urine Ketones Negative (Negative) Urine Blood 3+ H (Negative) Urine Nitrite Positive A (Negative) Urine Bilirubin Negative (Negative) Urine Urobilinogen Negative (Negative) Ur Leukocyte Esterase 3+ H (Negative) Urine WBC (Auto) >50 H (0-5) /hpf Urine RBC (Auto) >20 H (0-2) /hpf U Hyaline Cast (Auto) 0-2 (0-2) /lpf U Epithel Cells (Auto) 0-2 (0-2) /hpf Urine Bacteria (Auto) 2+ H (None Seen) Imaging Data Radiologist's Impression: KUB X-Ray 07/25/24 18:46 Exam(s): XR KUB EXAM: XR Abdomen, 1 View CLINICAL HISTORY: Reason for exam: No stool x a few days. TECHNIQUE: Frontal supine view of the abdomen/pelvis. COMPARISON: No relevant prior studies available. FINDINGS: Gastrointestinal tract: Increased colonic stool and gas may represent constipation. No evidence of mechanical bowel obstruction. Bones/joints: Lumbar spondylosis and mild osteoarthritis of both hips. No acute osseous findings. Tubes, lines and devices: Urinary catheter suggested. IMPRESSION: Increased colonic stool and gas may represent constipation. No evidence of mechanical bowel obstruction. Electronically signed by: Harshal Bender M.D. 07/25/24 19:52 PM MDM Narrative Patient was seen and evaluated as above in room D01. Review was performed of triage nursing notes and vital signs. Patient presents to us today for assessment of urinary retention. I did review previous visit from earlier today. I will note that I also reviewed the patient's urine culture obtained 07/20/2024 growing out MRSA as well as Enterococcus facialis. Patient notes he is not current on antibiotics. IV access with established. Labs are drawn. I discussed catheter with Dr. Rea. We will proceed with then 18 coud, replacing his current catheter noting malfunction. Patient was also noted to be retaining about 600 cc on the scan. Catheter replaced without issue and patient feeling well at this time. Labs reveal no leukocytosis. Minor anemia noted with hemoglobin of 10.3. Hyperglycemia with glucose of 393. Mild increase of creatinine 1.79 but similar to baseline. BUN 47. Urinalysis consistent with infection that was drawn with the new catheter placement. Noting the UTI paired with the patient's hyperglycemia and need for antibiotics, will proceed with inpatient management. I did order IV antibiotics based on patient's culture and sensitivity as obtained on 07/20/2024. I also spoke with in-house pharmacist and we will proceed with daptomycin at this time. It is felt that the benefit outweighed risk. Case discussed with the hospitalist service. Please refer to further documentation regarding his stay. I did add a KUB as the patient notes decreased bowel movement over the past few days. This did show increased colonic stool and gas. No bowel obstruction. In the evaluation and treatment of this patient the following differential diagnoses were entertained: UTI, pyelonephritis, Mott catheter malfunction, among others. Impression & Plan Acute urinary retention, Acute UTI Discharge Plan Visit Data Chief Complaint: Catheter Replacement Stated Complaint: CATHETER LEAKING ED Provider: Lauri Wagner ED Midlevel Provider: Gregor Llanos Discharge Problem: Acute urinary retention, Acute UTI Patient Disposition: Admitted As Inpatient Condition: Good Forms Stand Alone Forms: My [facility] Prescriptions Prescriptions: No Action (DME) OneTouch Ultra Test Strip See Rx Instructions .Route Qty: 100 3RF Rx Instructions: USE TO CHECK BLOOD SUGARS TWICE A DAY tamsulosin [Flomax] 0.4 mg capsule 0.4 mg PO QAM Qty: 90 3RF oxybutynin chloride 5 mg tablet 5 mg PO PRN Qty: 30 0RF Rx Instructions: as needed for bladder spasms insulin glargine [Lantus Solostar U-100 Insulin] 100 unit/mL (3 mL) insulin pen 40 unit subcut DAILY Qty: 15 5RF Patient Comments: "I haven't taken it since Saturday05/10/24" Rx Instructions: dose verified with patient sulfamethoxazole-trimethoprim [Bactrim] 400-80 mg tablet 1 tab PO BID 3 Days Qty: 6 0RF cholecalciferol (vitamin D3) 2,000 unit capsule 2,000 units PO DAILY Zyrtec 10 mg capsule 10 mg PO DAILY PRN (Reason: allergy symptoms) (DME) blood-glucose meter [OneTouch Verio Flex meter] Misc See Rx Instructions .Route Qty: 1 0RF Rx Instructions: Test blood sugar twice daily and as needed (DME) OneTouch Verio test strips Strip See Rx Instructions .Route Qty: 100 6RF Rx Instructions: Test blood sugar twice daily and as needed (DME) lancets [OneTouch Delica Plus Lancet] 30 gauge misc See Rx Instructions .Route Qty: 100 6RF Rx Instructions: Test blood sugar twice daily and as needed losartan 50 mg tablet 50 mg PO DAILY Qty: 90 3RF triamcinolone acetonide 0.1 % ointment 1 applic topical BID Qty: 30 1RF Patient Comments: "It didn't help" nystatin 100,000 unit/gram powder 1 applic topical DAILY Qty: 30 0RF Patient Comments: "I put it on and it burned a little bit. I have been using the doxycycline though" (DME) pen needle,diabetic, disp unit 32 gauge x " needle See Rx Instructions .Route Qty: 100 0RF Rx Instructions: As directed acetaminophen 650 mg Tablet Extended Release 1,300 mg PO Q12H PRN (Reason: Pain) phenazopyridine [Pyridium] 200 mg tablet 200 mg PO Q8H PRN (Reason: pain) Qty: 10 0RF Referrals Referrals: Pro,Star Deal MD [Primary Care Provider] -
[2024-07-25 17:46] LABS: Basophils # (auto) 0.05 K/uL (0.00-0.20); Basophils % (auto) 0.6 %; Eosinophils # (auto) 0.23 K/uL (0.00-0.50); Eosinophils % (auto) 2.7 %; Hematocrit (blood only) 31.2 % (42.0-52.0); Hemoglobin 10.3 g/dl (14.0-18.0); Immature Granulocytes # (auto) 0.02 K/uL (0.01-0.20); Immature Granulocytes % (auto) 0.2 %; Lymphocytes # (auto) 1.48 K/uL (1.20-3.40); Lymphocytes % (auto) 17.3 %; Mean Corpuscular Hemoglobin 28.5 pg (25.0-34.0); Mean Corpuscular Volume 86.4 fL (80.0-100.0); Mean Platelet Volume 11.2 fL (9.4-12.4); Monocytes # (auto) 0.68 K/uL (0.11-0.59); Monocytes % (auto) 7.9 %; Neutrophils # (auto) 6.11 K/uL (1.40-6.50); Neutrophils % (auto) 71.3 %; Platelet Count 250 K/uL (130-400); RDW Coefficient of Variation 14.3 % (11.5-14.5); RDW Standard Deviation 45.5 fL (36.4-46.3); Red Blood Count 3.61 M/uL (4.70-6.10); White Blood Count 8.57 K/ul (4.8-10.8)
[2024-07-25 18:19] LABS: Albumin Globulin Ratio 1.1 (0.9-2); Albumin Level 3.7 gm/dl (3.4-5.0); BUN Creatinine Ratio 26.3 (10-20); Bilirubin,Total 0.3 mg/dl (0.2-1.0); Calcium 8.8 mg/dl (8.6-10.3); Creatinine Clr Calc Pharmacy 39.3 ml/min; Globulin 3.4 gm/dl (2.5-4.0); Potassium 4.5 mmol/L (3.5-5.1); Total Protein 7.1 gm/dl (6.0-8.3)
[2024-07-25 19:06] LABS: Appearance Urine Turbid (Clear); Bacteria Urine Automated 2+ (None Seen); Bilirubin Urine Negative (Negative); Blood Urine 3+ (Negative); Cast Urine Automated 0-2 /lpf (0-2); Color Urine Yellow; Epithelial Cell Urine Auto 0-2 /hpf (0-2); Glucose Urine UA 3+ (Negative); Ketones Urine Negative (Negative); Leukocyte Esterase Urine 3+ (Negative); Nitrite Urine Positive (Negative); Protein Urine 2+ (Negative); RBC Urine Automated >20 /hpf (0-2); Specific Gravity Urine 1.017 (1.000-1.030); Urobilinogen Urine Negative (Negative); WBC Urine Automated >50 /hpf (0-5); pH Urine 5.5 (4.5-7.5)
[2024-07-25] MEDS: DAPTOmycin 300 MG in SYRINGE 0 ML IV STA (19:15)
[2024-07-25] MEDS: SODIUM CHLORIDE 0.9% 500 ML IV SCH (19:16)
--- NOTE | 2024-07-25 19:46 | History & Physical Report ---
Date of Service July 25, 2024 Assessment & Plan (1) Acute urinary retention: (2) UTI (urinary tract infection): (3) Acute kidney injury superimposed on chronic kidney disease: (4) Hyperglycemia due to type 2 diabetes mellitus: (5) Constipation: Plan Patient is an 78-year-old male with a past medical history of CKD, type II DM on insulin, BPH, hypertension, hyperlipidemia, and B12 deficiency. He presented to the ER in the a.m. 07/25 to have a catheter placed. He returned to the ER in the evening due to the catheter being placed wrong. He was found to have a UTI and is being admitted for IV antibiotics. #UTI/urinary retention/BPH s/p Rezum and cysto 05/21/24 springer cath placed in ED AM 07/25 -> replaced in evening 07/25 untreated urine culture 07/20 growing MRSA and enterococcus faecalis hx of serratia liquefaciens with many resistances UA showing >50 WBC, >20 RBC, 3+ leuko est, nitrites, 2+ bacteria no septic on admission - no leukocytosis, VSS, afebrile - trend CBC CT AP ordered - nonspecific perinephritic stranding, pyelonephritis cannot be excluded - springer cath with balloon inflated in prostatic urethra, recommend repositioning - nursing messaged to replace springer cath follow urine culture Given daptomycin in ED - transition to IV doxycycline and Levaquin; transition to p.o. agents on discharge Gentle hydration with IV NSS overnight Springer catheter in place continue home flomax Consult urology #DANIEL/CKD stage 3 suspect 2/2 to acute infection Cr increased to 1.79 (bl noted to be 1.7 -1.8 however down to 1.49 recently) electrolytes stable UA showing 2+ proteinuria avoid nephrotoxic agents gentle hydration with IVF overnight trend BMP #Hyperglycemia/T2DM controlled on 36U glargine at home - recently transition down from 40U due to a.m. hypoglycemia Patient started taking glucose tabs in a.m. due to hypoglycemia, had 2 candy bars in a.m. 07/25 Glucose 393 on admission - 5U novolog ordered UA showing 3+ glucose continue home glargine SSI with correction factor 20, carb ratio 7 Multiple recordings of A1c >16.9 in April A1c with a.m. labs staff development educator consulted #constipation KUB shows increased stool and gas but no obstruction colace prn Chronic stable diagnoses: HTN - continue losartan VTE ppx: SCDs - low risk and obs Diet: T2DM Dispo: med surg Anticipate discharge home 07/26 on oral doxycycline and Levaquin. Admission and Anticipated Discharge Date Admission Date: 07/25/24 History of Present Illness Chief Complaint: cath replacement Primary Care Provider: Star Duron MD Patient is an 78-year-old male with a past medical history of CKD, type II DM on insulin, BPH, hypertension, hyperlipidemia, and B12 deficiency. He presented to the ER in the a.m. 07/25 to have a catheter placed. He returned to the ER in the evening due to the catheter being placed wrong. He was found to have a UTI and is being admitted for IV antibiotics. Patient seen at bedside. He stated that after he had his Springer placed this morning due to being unable to urinate, He had PE running down his leg and purulent discharge from his urethra. He stated it was yellow discharge. He stated he had this once before in April and have a catheter placed until June. He was seen by urology 07/20/2024 in which they obtain urine cultures; this grew MRSA and enterococcus faecalis. He has a history Serratia liquefaciens. He is also endorses right sided back pain this morning however correlated it to sciatica. He stated the pain felt like someone was stabbing his side with a knife, it is now resolved. He denies any past history of kidney stones. Patient denies fever, chills, dyspnea, chest pain, abdominal pain, nausea, vomiting, hematuria. Regarding his hyperglycemia, glucose 393 on admission. Patient stated that he recently decrease his glargine from 40 units at bedtime to 36 units. He often wakes up and is hypoglycemic so he takes glucose tablets in the morning. Today he did not take the glucose tablets but did eat 2 candy bars due to his low glucose of 175. It is noted that patient had an A1c greater than 16.9 in April. He does not use nicotine products or drink alcohol. He denies past history of cancer or previous VTE. He does not use oxygen at baseline. He took his home medications this morning including Flomax; has not yet received his evening glargine insulin. He wishes to be DNR/DNI. Allergies Allergy/AdvReac Type Severity Reaction Status Date / Time No Known Allergies Allergy Verified 07/20/24 10:50 Home Medications Medication Instructions Recorded Confirmed Type cetirizine 10 mg capsule (Zyrtec) 10 mg PO DAILY PRN allergy symptoms 04/15/19 07/25/24 History cholecalciferol (vitamin D3) 50 2,000 units PO DAILY 04/15/19 07/25/24 History mcg (2,000 unit) capsule blood sugar diagnostic (OneTouch #100 ea 04/05/22 07/20/24 Rx Ultra Test strips) triamcinolone acetonide 0.1 % 1 applic topical BID #30 grams 04/03/24 07/20/24 Rx topical ointment pen needle,diabetic, disp unit 32 #100 ea 04/14/24 07/20/24 Rx gauge x 32", remover and disposal unit blood sugar diagnostic (OneTouch #100 ea 04/20/24 07/20/24 Rx Verio test strips) blood-glucose meter (OneTouch #1 ea 04/20/24 07/20/24 Rx Verio Flex Meter) lancets 30 gauge (OneTouch Delica #100 ea 04/20/24 07/20/24 Rx Plus Lancet) nystatin 100,000 unit/gram topical 1 applic topical DAILY #30 grams 05/07/24 07/20/24 Rx powder acetaminophen 650 mg 1,300 mg PO Q12H PRN Pain 05/14/24 07/25/24 History tablet,extended release tamsulosin 0.4 mg capsule (Flomax) 0.4 mg PO QAM #90 caps 05/19/24 07/25/24 Rx phenazopyridine 200 mg tablet 200 mg PO Q8H PRN pain #10 tabs 05/21/24 07/25/24 Rx (Pyridium) oxybutynin chloride 5 mg tablet 5 mg PO PRN #30 tabs 05/27/24 07/25/24 Rx losartan 50 mg tablet 50 mg PO DAILY #90 tabs 06/15/24 07/25/24 Rx insulin glargine 100 unit/mL (3 36 unit subcut HS 07/25/24 07/25/24 History mL) subcutaneous pen (Lantus Solostar U-100 Insulin) Past Med/Surg History Problem List (Updated 07/25/24 @ 21:03 by Kaylyn Brody PA-C) Constipation Hyperglycemia due to type 2 diabetes mellitus Acute kidney injury superimposed on chronic kidney disease UTI (urinary tract infection) Acute urinary retention (Acute) Anemia of chronic disease BPH w urinary obs/LUTS (Chronic) Proteinuria Vitamin D deficiency DM type 2 causing CKD stage 3 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 Vitamin B12 deficiency Right shoulder pain (Acute) Cataract, bilateral (Acute) Adjustment disorder (Acute) Medical History History of UTI 04/10/24 hospitalization - treated Liver lesion noticed on imaging - no other further direction was given as per patient 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 BPH (benign prostatic hyperplasia) Springer catheter in place last changed 05/05/24 Urinary retention Uncontrolled type 2 diabetes mellitus with hyperglycemia, without long-term current use of insulin - IDDM - as of 05/14/24- stopped taking insulin 4 days ago - no longer using latasha system - monitors glucose with onetouch - Hgb A1C >16.9 during 04/2024 admission Hypertension Dyslipidemia Chronic kidney disease, stage III (moderate) Dr Mccormack Surgical History Hx of tonsillectomy Hx of tooth extraction Status post orchiopexy Hx of right cataract extraction Family History Other Adopted Social History Smoking Status: Never smoker Tobacco Type: Cigarettes Age Started Using Tobacco: 13; Age Quit Using Tobacco: 53; packs per day: 1; Second Hand Exposure: No; Do You Dip or Chew Tobacco: No; Hx Alcohol Use: No Hx Substance Use: No Preferred Language: Telugu Communication Ability: Effective Turn Down Attendant Required: No Beliefs That Will Affect Care: None marital status: Current Living Situation: Spouse current occupational status: employed 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 Non-toxic appearing. HEENT- EOMI, mucous membranes moist. Hearing grossly intact. Heart-normal S1 and S2. No murmurs, rubs or gallops. Lungs-clear bilaterally, no respiratory distress, no accessory muscle use. Abdomen-normal bowel sounds and soft. No ascites noted. Non-tender. Extremities- no clubbing, cyanosis, or edema. Rheumatologic-normal range of motion. Psychiatric-normal affect. Genitourinary: Springer draining yellow urine, no gross hematuria Results & Data Results & Data Vital Signs (Past 12 Hours) Vital Signs Temp Pulse Pulse Resp BP BP Pulse Ox 07/25/24 19:00 80 18 180/85 H 98 07/25/24 15:55 36.3 C L 93 H 24 181/89 H 100 O2 Del Method 07/25/24 19:00 Room Air 07/25/24 15:55 Room Air Laboratory Results Reviewed CBC, CMP, UA Diagnostic Findings reviewed KUB Medications Administered ED: 500 mL NSS and daptomycin 300 mg ECG Additional Comments: ordered Code Status & VTE Plan Code Status dnr/dni VTE Prophylaxis Plan VTE Prophylaxis will be ordered: Yes Supervising Physician Co-Signing Physician Notes Attending addendum: I have physically seen this patient, have supervised the ADEEL's activities, and agree with the H&P unless as otherwise noted. Assessment and Plan: The patient is an 78-year-old male with a past medical history including CKD, diabetes mellitus type 2, BPH with LUTS, hypertension, hyperlipidemia and B12 deficiency. He presents to the emergency department earlier in the morning of 07/25, had a catheter placed due to urinary retention. He returned later in the day, due to issues with leakage around the catheter, noted mucus there also, was found to have DANIEL, and was then referred for evaluation for admission for IV antibiotics and rehydration. Recurrent urinary tract infection, urinary retention associated BPH- Patient status post Rezum and cystoscopy on 05/21/2024 Follow urine culture and sensitivity Most recent culture from 07/20/2024 growing MRSA and Enterococcus faecalis. Culture from 05/18/2024 growing multidrug-resistant Serratia Status post daptomycin 300 milligrams IV from the ED and normal saline 500 mL fluid bolus at 125 mL/h Will add doxycycline 100 mg IV every 12 hours and levofloxacin 70 mg IV every 24 hours Patient should be able to be discharged ultimately on oral doxycycline and levofloxacin to cover all 3 bacteria Acute kidney injury superimposed on CKD- Creatinine 1.79, with base 1.5 to IV fluids as above and continue at 80 mL/h overnight x 1 L Continue tamsulosin and oxybutynin Hold losartan Repeat laboratories in a.m. Diabetes mellitus- Glucose 393 on admission Hemoglobin A1c significantly elevated April 22 0.9 Patient has been taking extra glucose tablets in the morning due to having low sugar. Needs to see diabetic education, to readjust oral intake Changing glargine and SSI as noted PG Care Time/CCT Total # of Minutes Spent Total Time Spent with Patient: Total time spent is greater than 50% in coordination of care (as documented) at patient's floor/unit and/or counseling patient: Coding Level of Care Code 07186 INT INP/OBS CARE 3/75MIN Diagnoses Acute urinary retention R33.8 UTI (urinary tract infection) N39.0 Acute kidney injury superimposed on chronic kidney disease N17.9; N18.9 Hyperglycemia due to type 2 diabetes mellitus E11.65 Constipation K59.00
--- NOTE | 2024-07-25 19:53 | XRay Report ---
Exam(s): XR KUB EXAM: XR Abdomen, 1 View CLINICAL HISTORY: Reason for exam: No stool x a few days. TECHNIQUE: Frontal supine view of the abdomen/pelvis. COMPARISON: No relevant prior studies available. FINDINGS: Gastrointestinal tract: Increased colonic stool and gas may represent constipation. No evidence of mechanical bowel obstruction. Bones/joints: Lumbar spondylosis and mild osteoarthritis of both hips. No acute osseous findings. Tubes, lines and devices: Urinary catheter suggested. IMPRESSION: Increased colonic stool and gas may represent constipation. No evidence of mechanical bowel obstruction. Electronically signed by: Harshal Bender M.D. 07/25/24 19:52 PM
[2024-07-25] MEDS: INSULIN ASPART PER UNIT CHARGE SC STA (20:19)
[2024-07-25] MEDS: SODIUM CHLORIDE 0.9% 1,000 ML IV SCH (20:31)
--- NOTE | 2024-07-25 20:57 | CT Scan Report ---
Exam(s): CT ABDOMEN + PELVIS Without Contrast EXAM: CT Abdomen and Pelvis Without Intravenous Contrast CLINICAL HISTORY: Reason for exam: flank pain, UTI. TECHNIQUE: Axial computed tomography images of the abdomen and pelvis without intravenous contrast. Automated exposure control was utilized for the study. A dose lowering technique was utilized adhering to the principles of ALARA. COMPARISON: 04/12/24 FINDINGS: Lung bases: Unremarkable. ABDOMEN: Liver: Unremarkable. Gallbladder and bile ducts: Similar localized intrahepatic bile duct dilatation and surrounding parenchymal hypodensity in the right hepatic lobe (series 2, image 30), favored incidental. No calcified stones. Pancreas: Unremarkable. No ductal dilation. Spleen: Unremarkable. No splenomegaly. Adrenals: Unremarkable. No mass. Kidneys and ureters: No radiopaque urinary stones. Stable atrophy of the left kidney. No hydronephrosis. Nonspecific perinephric stranding. Stomach and bowel: Unremarkable. No mucosal thickening. No bowel obstruction. PELVIS: Appendix: Normal appendix. Bladder: Decompressed urinary bladder. Intraluminal gas related to Mott placement. Mott catheter placement with balloon inflated in the prostatic urethra. No stones. Reproductive: Prostatomegaly. ABDOMEN and PELVIS: Intraperitoneal space: Unremarkable. No free air, significant free fluid, or fluid collection. Bones/joints: Lumbar spondylosis. Varying degrees of acquired spinal canal and foraminal narrowing. No acute fracture. No dislocation. Soft tissues: Unremarkable. Vasculature: Atherosclerosis. No abdominal aortic aneurysm. Lymph nodes: Unremarkable. No enlarged lymph nodes. IMPRESSION: 1. Decompressed urinary bladder. Intraluminal gas related to Mott placement. Correlate with urinalysis to assess for cystitis. 2. Nonspecific perinephric stranding. This finding is frequently incidental, but pyelonephritis cannot be excluded. 3. Mott catheter placement with balloon inflated in the prostatic urethra. Recommend repositioning. Electronically signed by: Harshal Bender M.D. 07/25/24 20:56 PM
[2024-07-25] MEDS ORDERED: oxyBUTYnin chloride 5 MG TAB PO PRN (22:21)
[2024-07-25] MEDS ORDERED: GLUCAGON FOR INJ 1 MG VIAL SQ PRN (22:21)
[2024-07-25] MEDS ORDERED: levoFLOXacin/D5W 250 MG/50 ML BAG IV SCH (22:21)
[2024-07-25] MEDS ORDERED: DOCUSATE SODIUM 100 MG CAP PO PRN (22:21)
[2024-07-25] MEDS ORDERED: ACETAMINOPHEN 325 MG TAB PO PRN (22:21)
[2024-07-25] MEDS ORDERED: MELATONIN 3 MG TAB PO PRN (22:21)
[2024-07-25] MEDS ORDERED: GLUCOSE 40% GEL 15 GM TUBE PO PRN (22:21)
[2024-07-25] MEDS ORDERED: ONDANSETRON INJ 2 MG/ML 2 ML VIAL IV PRN (22:21)
[2024-07-25] MEDS ORDERED: GLUCOSE 10 TAB/TUBE PO PRN (22:21)
[2024-07-25] MEDS ORDERED: DEXTROSE 50% 50 ML SYRINGE IV PRN (22:21)
[2024-07-25] MEDS ORDERED: PHENAZOPYRIDINE HCL 200 MG TAB PO PRN (22:21)
[2024-07-25] MEDS: LANTUS PER UNIT CHARGE SQ SCH (23:37)
[2024-07-25] MEDS: INSULIN ASPART PER UNIT CHARGE SC SCH (23:37)
[2024-07-26 07:50] LABS: Basophils # (auto) 0.04 K/uL (0.00-0.20); Basophils % (auto) 0.5 %; Eosinophils # (auto) 0.28 K/uL (0.00-0.50); Eosinophils % (auto) 3.6 %; Hematocrit (blood only) 30.4 % (42.0-52.0); Hemoglobin 9.8 g/dl (14.0-18.0); Immature Granulocytes # (auto) 0.02 K/uL (0.01-0.20); Immature Granulocytes % (auto) 0.3 %; Lymphocytes # (auto) 1.86 K/uL (1.20-3.40); Mean Corpuscular Hemoglobin 28.2 pg (25.0-34.0); Mean Corpuscular Hgb Conc 32.2 g/dL (32.0-36.0); Mean Corpuscular Volume 87.6 fL (80.0-100.0); Mean Platelet Volume 10.9 fL (9.4-12.4); Monocytes # (auto) 0.63 K/uL (0.11-0.59); Monocytes % (auto) 8.1 %; Neutrophils # (auto) 4.91 K/uL (1.40-6.50); Neutrophils % (auto) 63.5 %; Platelet Count 240 K/uL (130-400); RDW Coefficient of Variation 14.3 % (11.5-14.5); RDW Standard Deviation 45.8 fL (36.4-46.3); Red Blood Count 3.47 M/uL (4.70-6.10); White Blood Count 7.74 K/ul (4.8-10.8)
[2024-07-26] MEDS: CARBOHYDRATES FOR HYPOGLYCEMIA PO PRN (07:55)
[2024-07-26 08:02] LABS: BUN Creatinine Ratio 28.8 (10-20); Creatinine Clr Calc Pharmacy 50.6 ml/min; Magnesium 1.6 mg/dl (1.7-2.4); Potassium 3.8 mmol/L (3.5-5.1)
[2024-07-26] MEDS ORDERED: LOSARTAN POTASSIUM 50 MG TAB PO SCH (09:00)
[2024-07-26 09:03] LABS: Estimated Average Glucose 237 mg/dl; Hemoglobin A1C 9.9 % (4.5-5.6)
[2024-07-26] MEDS: DOXYCYCLINE HYCLATE 100 MG in DEXTROSE 5% MINI-B 100 ML IV SCH (09:31)
[2024-07-26] MEDS: TAMSULOSIN HCL 0.4 MG CAP PO SCH (09:31)
--- NOTE | 2024-07-26 10:42 | Urology Consultation ---
Date of Consultation July 26, 2024 Assessment & Plan (1) Acute urinary retention: Urinary retention currently managed with indwelling Mott catheter. He should maintain this for approximately 1 week. We can coordinate voiding trial in the office, and potentially [facility] teaching at that time. (2) UTI (urinary tract infection): Most recent urine culture demonstrated Staph aureus and Enterococcus. Both are covered with daptomycin, however he would require multiple p.o. antibiotics for discharge home. He will likely require 7-10 days for treatment. Repeat urine cultures pending, would be reasonable to see what this shows to ensure organisms have not changed. (3) Acute kidney injury superimposed on chronic kidney disease: Renal function has improved with catheter in place and draining well. No evidence of upper tract obstruction on his CT scan. Would maintain Mott catheter for now. (4) BPH w urinary obs/LUTS: Plan He has been both hyper and hypoglycemia since arrival. Would defer to medicine regarding management of blood sugars and when it is appropriate for discharge home on oral antibiotics from this perspective. Urology will follow along History of Present Illness Reason for Consultation: UTI, recent urologic procedure Attending Physician: Ken Nance, History of Present Illness This is an 78-year-old male followed by urology for incomplete bladder emptying, BPH, bladder lesion. He underwent Rezum and urethral biopsy on 05/21/[address] Escobar. He has undergone voiding trials in the office with some success. Most recent visit was on 07/20/2024. Urine culture was obtained at that visit which subsequently identified Enterococcus and Staph aureus. He presented to the emergency department on 07/25/2024 and was unable to void. Catheter was placed in the morning, however that became obstructed and he returned to the emergency department in the evening. At that time, the catheter was exchanged, however he was noted to have blood sugar of almost 400 on lab work and creatinine was slightly elevated (1.79). He did not have significant leukocytosis at that point (WBC 8.57). A CT scan was performed. I independently reviewed these images from 07/25/2024. Both kidneys are in normal position. The left kidney is atrophic. I do not appreciate any hydronephrosis bilaterally. Bladder is decompressed with Mott catheter in place and small foci of gas within the lumen, likely from recent instrumentation. Prostate appears fairly normal. In the emergency department, he was given a dose of daptomycin given sensitivities of his prior culture. Urology was consulted for additional recommendations with his UTI and recent procedure. At the bedside this morning, he denies any significant pain. He denies any fevers or chills at this point. He feels like the current catheter is draining well. Has not been having any hematuria. Allergies Allergy/AdvReac Type Severity Reaction Status Date / Time No Known Allergies Allergy Verified 07/20/24 10:50 Home Medications Medication Instructions Recorded Confirmed Type cetirizine 10 mg capsule (Zyrtec) 10 mg PO DAILY PRN allergy symptoms 04/15/19 07/25/24 History cholecalciferol (vitamin D3) 50 2,000 units PO DAILY 04/15/19 07/25/24 History mcg (2,000 unit) capsule blood sugar diagnostic (OneTouch #100 ea 04/05/22 07/20/24 Rx Ultra Test strips) triamcinolone acetonide 0.1 % 1 applic topical BID #30 grams 04/03/24 07/20/24 Rx topical ointment pen needle,diabetic, disp unit 32 #100 ea 04/14/24 07/20/24 Rx gauge x 5/32", remover and disposal unit blood sugar diagnostic (OneTouch #100 ea 04/20/24 07/20/24 Rx Verio test strips) blood-glucose meter (OneTouch #1 ea 04/20/24 07/20/24 Rx Verio Flex Meter) lancets 30 gauge (OneTouch Delica #100 ea 04/20/24 07/20/24 Rx Plus Lancet) nystatin 100,000 unit/gram topical 1 applic topical DAILY #30 grams 05/07/24 07/20/24 Rx powder acetaminophen 650 mg 1,300 mg PO Q12H PRN Pain 05/14/24 07/25/24 History tablet,extended release tamsulosin 0.4 mg capsule (Flomax) 0.4 mg PO QAM #90 caps 05/19/24 07/25/24 Rx phenazopyridine 200 mg tablet 200 mg PO Q8H PRN pain #10 tabs 05/21/24 07/25/24 Rx (Pyridium) oxybutynin chloride 5 mg tablet 5 mg PO PRN #30 tabs 11/20/24 01/18/25 Rx losartan 50 mg tablet 50 mg PO DAILY #90 tabs 06/15/24 07/25/24 Rx insulin glargine 100 unit/mL (3 36 unit subcut HS 07/25/24 07/25/24 History mL) subcutaneous pen (Lantus Solostar U-100 Insulin) Patient History Medical History History of UTI 04/10/24 hospitalization - treated Liver lesion noticed on imaging - no other further direction was given as per patient 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 BPH (benign prostatic hyperplasia) Mott catheter in place last changed 05/05/24 Urinary retention Uncontrolled type 2 diabetes mellitus with hyperglycemia, without long-term current use of insulin - IDDM - as of 05/14/24- stopped taking insulin 4 days ago - no longer using latasha system - monitors glucose with onetouch - Hgb A1C >16.9 during 04/2024 admission Hypertension Dyslipidemia Chronic kidney disease, stage III (moderate) Dr Mccormack Surgical History Hx of tonsillectomy Hx of tooth extraction Status post orchiopexy Hx of right cataract extraction Family History Other Adopted Social History Smoking Status: Never smoker Tobacco Type: Cigarettes Age Started Using Tobacco: 13; Age Quit Using Tobacco: 53; packs per day: 1; Second Hand Exposure: No; Do You Dip or Chew Tobacco: No; Hx Alcohol Use: No Hx Substance Use: No Preferred Language: German Communication Ability: Effective Fence Erector Supervisor Required: No Beliefs That Will Affect Care: None marital status: Current Living Situation: Spouse current occupational status: employed 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 Physical Exam Constitutional: well developed and well nourished; no acute distress Eyes: + anicteric sclerae; pupils not irregula r Respiratory: normal respiratory effort; no respiratory distress, does not use accessory muscles and no cough Cardiovascular: well perfused Gastrointestinal (Abdomen): Inspection/Auscultation: abdomen normal to inspection; abdomen not distended Musculoskeletal: Extremities: extremities normal to inspection Skin: normal turgor; no rashes and no lesions Neurologic: moves all extremities and awake Psychiatric: Orientation: alert and oriented x 3 Genitourinary: Mott catheter in place draining clear yellow urine with some sediment. Fibrinous discharge around the urethral meatus, may be related to having the indwelling catheter. Results & Data Vital Signs (Past 12 Hours) Vital Signs Temp Pulse Resp BP Pulse Ox O2 Del Method 07/26/24 06:48 36.6 C 80 18 159/68 H 98 Room Air PG Care Time/CCT Total # of Minutes Spent Total Time Spent with Patient: Total time spent is greater than 50% in coordination of care (as documented) at patient's floor/unit and/or counseling patient: Coding Level of Care Code 29487 INT INP/OBS CARE 2/55MIN Diagnoses Acute urinary retention R33.8 UTI (urinary tract infection) N39.0 Acute kidney injury superimposed on chronic kidney disease N17.9; N18.9 BPH w urinary obs/LUTS N40.1; N13.8
[2024-07-26] MEDS: CIPROFLOXACIN / D5W 400 MG/200 ML BAG IV SCH (11:21)
[2024-07-26] MEDS: AMPICILLIN/SULBACTAM SOD 3,000 MG/100 ML BAG IV SCH (13:26)
--- NOTE | 2024-07-26 14:56 | Hospitalist Progress Note ---
Date of Service July 26, 2024 Assessment & Plan (1) Acute urinary retention: (2) UTI (urinary tract infection): (3) Acute kidney injury superimposed on chronic kidney disease: (4) BPH w urinary obs/LUTS: (5) Hyperglycemia due to type 2 diabetes mellitus: (6) Constipation: Plan Plan Patient is an 78-year-old male with a past medical history of CKD, type II DM on insulin, BPH, hypertension, hyperlipidemia, and B12 deficiency. He presented to the ER in the a.m. 07/25 to have a catheter placed. He returned to the ER in the evening due to the catheter being placed wrong. He was found to have a UTI and is being admitted for IV antibiotics. #UTI/urinary retention/BPH s/p Rezum and cysto 05/21/24 springer cath placed in ED AM 07/25 -> replaced in evening 07/25 untreated urine culture 07/20 growing MRSA and enterococcus faecalis UA showing >50 WBC, >20 RBC, 3+ leuko est, nitrites, 2+ bacteria CT AP ordered - nonspecific perinephritic stranding, pyelonephritis cannot be excluded; reposition springer Given daptomycin in ED - transition to IV doxycycline and Levaquin; transition IV doxy + IV Unasyn using sensitivities from 07/20 Follow urine cx 07/[address] Continue Flomax, appreciate urology recs #DANIEL/CKD stage 3 suspect 2/2 to acute infection Cr increased to 1.79 (bl noted to be 1.7 -1.8 however down to 1.49 recently) electrolytes stable UA showing 2+ proteinuria avoid nephrotoxic agents gentle hydration with IVF overnight trend BMP #Hyperglycemia/T2DM controlled on 36U glargine at home - recently transition down from 40U due to a.m. hypoglycemia Patient started taking glucose tabs in a.m. due to hypoglycemia, had 2 candy bars in a.m. 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 Catheter draining well. Urology input appreciated. Vitals noted, in general he is awake and alert pleasant no distress. HEENT normocephalic atraumatic mucous membranes moist. Breathing unlabored no accessory muscle use good effort. Skin without rashes pallor or icterus. Urinary retentionI suspect simply due to the infectionpatient notes a week ago he was voiding with a good stream, implying that he probably does not have any real bladder outlet obstruction since his procedure, and fortunately that he does not seem to have any neurogenic bladder from his chronic terrible control of diabetes. Currently on doxycycline and ampicillinanticipate home soon on oral antibiotics. Uncontrolled diabeteshis A1c is considerably improved from undetectably high to 9.9. Obviously still has a lot of improvement do, but this is his best A1c in about 4-1/2 years. We had extensive discussions when he was here in April, and unfortunately he seems to be reasonably fatalistic about his diabetes, has done better with vascular complications than his numbers suggest he should have, is not really willing to change his diet, and did not want any truly appropriate medication regimenthe best we were able to barter was basal insulin alonewhich is probably why he has a better A1c, but also still has frequent highs and lows. If he is willing to discuss more, obviously his med management could be improved upon, but generally he was quite closed off to this before. DVT proph - ambulation likely home tomorrow PO abx, springer, outpt urology f/u Subjective Fady Noyola is seen resting comfortably at bedside. Patient has no acute complaints or concerns today. Patient denies fevers, chills, dysuria, burning or increased urgency. Patient does have a springer catheter placed. 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 Physical Exam Physical Exam: General: patient resting comfortably, NAD, non-toxic in appearance, answers questions appropriately. Skin: warm, dry, intact HEENT: NC/AT, anicteric sclera, conjunctiva without injection, moist mucus membranes. Heart: +S1/S2, regular, no m/r/g Lungs: equal air entry bilaterally, no rales/rhonchi/wheezes Abd: +BS, soft, NT/ND Ext: warm, no clubbing/cyanosis or edema Neuro: nonfocal, speech intact, no facial droop, moving all extremities. Results & Data Results & Data Vital Signs (Past 12 Hours) Vital Signs Temp Pulse Resp BP Pulse Ox O2 Del Method 07/26/24 06:48 36.6 C 80 18 159/68 H 98 Room Air Resident Activity Tracking Resident Involvement: Resident Care Provided Care Provided: Adult Hospital Medicine
--- NOTE | 2024-07-26 17:42 | Billing Data ---
Date of Service July 26, 2024 Coding Level of Care Code 65088 SUB INP/OBS CARE MIN
[2024-07-26] MEDS ORDERED: LANTUS PER UNIT CHARGE SQ SCH (21:24)
[2024-07-26] MEDS: LANTUS PER UNIT CHARGE SQ SCH (22:13)
[2024-07-27 07:59] VITALS: RESP 16; O2SAT 97
--- NOTE | 2024-07-27 08:02 | Discharge Summary ---
Date of Service July 27, 2024 Admission HPI Per Admitting Provider Patient is an 78-year-old male with a past medical history of CKD, type II DM on insulin, BPH, hypertension, hyperlipidemia, and B12 deficiency. He presented to the ER in the a.m. 07/25 to have a catheter placed. He returned to the ER in the evening due to the catheter being placed wrong. He was found to have a UTI and is being admitted for IV antibiotics. Patient seen at bedside. He stated that after he had his Springer placed this morning due to being unable to urinate, He had PE running down his leg and purulent discharge from his urethra. He stated it was yellow discharge. He stated he had this once before in April and have a catheter placed until June. He was seen by urology 07/20/2024 in which they obtain urine cultures; this grew MRSA and enterococcus faecalis. He has a history Serratia liquefaciens. He is also endorses right sided back pain this morning however correlated it to sciatica. He stated the pain felt like someone was stabbing his side with a knife, it is now resolved. He denies any past history of kidney stones. Patient denies fever, chills, dyspnea, chest pain, abdominal pain, nausea, vomiting, hematuria. Regarding his hyperglycemia, glucose 393 on admission. Patient stated that he recently decrease his glargine from 40 units at bedtime to 36 units. He often wakes up and is hypoglycemic so he takes glucose tablets in the morning. Today he did not take the glucose tablets but did eat 2 candy bars due to his low glucose of 175. It is noted that patient had an A1c greater than 16.9 in April. He does not use nicotine products or drink alcohol. He denies past history of cancer or previous VTE. He does not use oxygen at baseline. He took his home medications this morning including Flomax; has not yet received his evening glargine insulin. He wishes to be DNR/DNI. Admission Exam Per Admitting Provider The patient is awake, alert and oriented 3, well developed and well nourished, normocephalic and atraumatic, in no acute distress. Non-toxic appearing. HEENT- EOMI, mucous membranes moist. Hearing grossly intact. Heart-normal S1 and S2. No murmurs, rubs or gallops. Lungs-clear bilaterally, no respiratory distress, no accessory muscle use. Abdomen-normal bowel sounds and soft. No ascites noted. Non-tender. Extremities- no clubbing, cyanosis, or edema. Rheumatologic-normal range of motion. Psychiatric-normal affect. Genitourinary: Springer draining yellow urine, no gross hematuria Principal Diagnosis UTI, urinary retention Discharge Exam Gen: NAD, WD/WN HEENT: NCAT, MMM CV: RRR, no m/r/g, S1/S2 normal Resp: CTAB, symmetrical chest rise, breathing non-labored Abd: Soft, NT/ND, normoactive BS Ext: no cyanosis, clubbing, or edema Skin: Warm, dry, pink, no rashes noted Neuro: AOx3, CN II-XII grossly intact Psych: Mood-affect congruent. Speech pace and content normal. Discharge Data Allergies Allergy/AdvReac Type Severity Reaction Status Date / Time No Known Allergies Allergy Verified 07/20/24 10:50 Consultations 07/25/24 18:50 ED Decision to Admit Stat 07/25/24 22:21 Consult Urology Routine Ordered Studies 07/25/24 19:41 CT Abd and Pelvis [CT abd pelvis wo con] Urgent IMPRESSION: 1. Decompressed urinary bladder. Intraluminal gas related to Springer placement. Correlate with urinalysis to assess for cystitis. 2. Nonspecific perinephric stranding. This finding is frequently incidental, but pyelonephritis cannot be excluded. 3. Springer catheter placement with balloon inflated in the prostatic urethra. Recommend repositioning. 07/27/24 07:59 07/27/24 07:59 Diabetes Follow up Diabetes Follow-up Needed for HgbA1c >9% Hospital Course (1) Acute urinary retention: (2) UTI (urinary tract infection): (3) Acute kidney injury superimposed on chronic kidney disease: (4) BPH w urinary obs/LUTS: (5) Hyperglycemia due to type 2 diabetes mellitus: (6) Constipation: Plan Patient is an 78-year-old male with a past medical history of CKD, type II DM on insulin, BPH, hypertension, hyperlipidemia, and B12 deficiency. He presented to the ER in the a.m. 07/25 to have a catheter placed. He returned to the ER in the evening due to the catheter being placed wrong. He was found to have a UTI and was admitted for IV antibiotics. UTI, Urinary retention, BPH - s/p Rezum and cysto 05/21/24 - Untreated urine cx from 07/20 grew MRSA and E. faecalis - Springer cath placed in ED AM 07/25 --> replaced in evening 07/25 - UA: >50 WBC, >20 RBC, 3+ leuko est, nitrites, 2+ bacteria - CTAP: nonspecific perinephritic stranding, pyelonephritis cannot be excluded; rec repositioning Springer - Given daptomycin in ED; then IV doxy + IV Unasyn using sensitivities from 07/20 - Urology was consulted, home medications were continued - Discharged with 8 more days of abx, for a total 10-day course - Ciprofloxacin 250 mg BID, ending 08/04 PM - Doxycycline 100 mg BID, ending 08/04 PM - Discharged with Springer in place, will be removed in 1 wk - Close follow-up with Urology DANIEL, CKD stage 3 - Suspect DANIEL 2/2 to acute infection - Baseline Cr 1.7~1.8 but had been down to 1.49 recently (06/12) - Cr 1.79 on admission; electrolytes stable, UA w 2+ proteinuria - Was treated with IVF overnight, Cr improved to 1.39 - Back to baseline on day of discharge T2DM - Managed with 36U glargine at home - recently decreased from 40U due to a.m. hypoglycemia - patient started glucose tabs in a.m. due to hypoglycemia - On arrival, was given 5U novolog; UA showed 3+ glucose - A1c on 07/26 was 9.9, down from undetectably high (>16.9) - Managed w 36U Lantus and SSI while hospitalized - Lantus decreased to 34U after multiple readings < 70; low of 46 on 07/26 PM - SSI with correction factor 20, carb ratio 7 --> ratio adjusted to 15 Constipation - KUB showed increased stool and gas but no obstruction - Colace was available prn but not given HTN: patient was kept on home losartan Total Time Total Time Spent Total Time Spent (In Minutes): See attending documentation Discharge Plan Discharge Items Patient Disposition: Home - Self-Care Reason For Visit: UTI Discharge Diagnosis: UTI, urinary retention Condition on Discharge: Good Activity: Per Instructions section Non-emergency contact: Primary Care Provider and Urologist Call non-emergency contact if: you have any medication questions, your symptoms worsen, your pain is not controlled and your temperature is above 101 Follow-up/Referrals: Star Duron MD [Primary Care Provider] - 07/31/24 10:00 am (If unable to keep this appt please call office to reschedule.) Diet: Regular Addtl Attending Provider Instructions: You were admitted to the hospital for urinary retention and urinary tract infection (UTI). You were treated with IV antibiotics and had a Springer catheter placed. You will be going home with the Springer still in place. It will remain for 1 week. You must follow up with urology to have it removed. You are also going home with 2 antibiotics that you will need to take for 8 more days. Your medication list has been reviewed and reconciled, and an updated list is included with your hospital discharge paperwork. Please review this list closely, and make note of any changes. We sent a prescription for doxycycline to [facility] pharmacy in [place]. Take one 100 mg tablet two times per day for 8 days. Your next dose will be this evening, and your last dose should be 08/04 evening We also sent over an antibiotic called ciprofloxacin. Take one 500 mg tablet two times per day for 8 days. Your next dose will be this evening, and your last dose should be 08/04 evening. Take your medications as instructed; do not skip a dose. Make sure all of your doctors know every medicine you are taking (including [id number] medicines, vitamins, and supplements). Call your PCP before taking any new medicines because some of these may interact with your current medications, or may make your symptoms worse. Follow-up appointments: You will need to follow up with Urology on 08/03. They should call you to schedule an appointment; Please call their office if you do not hear from them. Make a follow-up appointment with your PCP within the next week. It is very important that you follow up with them shortly after discharge from the hospital. Keep all your follow-up appointments as already scheduled. If you cannot make an appointment, notify your provider. Please bring a copy of this discharge summary with you to your next office appointment so that your provider can review it at that time and stay updated on your hospitalization and potential changes in your care. Contact your PCP or urologist if your symptoms return, you have pain or burning with urination, or you have fevers. Call 911 or go to the ER if you experience any of the following: Sudden, severe abdominal pain or nausea/vomiting Severe chest pain, or chest pain that radiates (moves) to your jaw or arm Sudden, severe shortness of breath or difficulty breathing Thank you for allowing us to participate in your care. Pending Studies at Discharge: No Stand-Alone Forms: [facility], Smoking Cessation Medications and DC Order Prescriptions: New ciprofloxacin HCl 500 mg tablet 500 mg PO BID Qty: 17 0RF doxycycline hyclate 100 mg capsule 100 mg PO BID 7 Days Qty: 17 0RF Continued (DME) OneTouch Ultra Test Strip See Rx Instructions .Route Qty: 100 3RF Rx Instructions: USE TO CHECK BLOOD SUGARS TWICE A DAY tamsulosin [Flomax] 0.4 mg capsule 0.4 mg PO QAM Qty: 90 3RF oxybutynin chloride 5 mg tablet 5 mg PO PRN Qty: 30 0RF Rx Instructions: as needed for bladder spasms cholecalciferol (vitamin D3) 2,000 unit capsule 2,000 units PO DAILY Zyrtec 10 mg capsule 10 mg PO DAILY PRN (Reason: allergy symptoms) (DME) blood-glucose meter [XipinTouch Verio Flex meter] Misc See Rx Instructions .Route Qty: 1 0RF Rx Instructions: Test blood sugar twice daily and as needed (DME) OneTouch Verio test strips Strip See Rx Instructions .Route Qty: 100 6RF Rx Instructions: Test blood sugar twice daily and as needed (DME) lancets [OneTouch Delica Plus Lancet] 30 gauge misc See Rx Instructions .Route Qty: 100 6RF Rx Instructions: Test blood sugar twice daily and as needed losartan 50 mg tablet 50 mg PO DAILY Qty: 90 3RF triamcinolone acetonide 0.1 % ointment 1 applic topical BID Qty: 30 1RF Patient Comments: "It didn't help" nystatin 100,000 unit/gram powder 1 applic topical DAILY Qty: 30 0RF Patient Comments: "I put it on and it burned a little bit. I have been using the doxycycline though" (DME) pen needle,diabetic, disp unit 32 gauge x " needle See Rx Instructions .Route Qty: 100 0RF Rx Instructions: As directed acetaminophen 650 mg Tablet Extended Release 1,300 mg PO Q12H PRN (Reason: Pain) phenazopyridine [Pyridium] 200 mg tablet 200 mg PO Q8H PRN (Reason: pain) Qty: 10 0RF insulin glargine [Lantus Solostar U-100 Insulin] 100 unit/mL (3 mL) insulin pen 36 unit subcut HS Patient Comments: "I haven't taken it since Saturday05/10/24" Rx Instructions: dose verified with patient Discharge Orders: Discharge Order (Routine); Ordered 07/27/24 Ordered By: Debbie Perez Admission Data Admit Date/Time: 07/25/24 19:53 Attending Provider: Roberto Ramirez Admit Provider: Kurtis Wilks Primary Care Provider: Star Duron Other Providers: Anastacio Rea; Kurtis Wilks Other Interventions: Discharge Summary Assessment (RN) Last Done: 07/27/24 15:34 Supervising Physician Co-Signing Physician Notes Attending attestation Pt seen and examined in concert with Dr. Perez. In agreement with the documented findings as noted in the resident documentation with any exceptions or additions as noted here. Reports no further issues with his springer catheter leaking at this time, nor any urinary or abdominal symptoms. On examination, S1/S2 nl RRR no MCG. CTAB. Abd NT/ND BS+ve UTI with urinary retention s/p springer catheter insertion - transitioning to PO cipro and doxycycline to cover last available culture results. Continue springer and will follow up with urology for removal. Would recommend recheck BMP for stability of renal function on follow up. Else see resident documentation as noted. Total attending physician time spent with this patient's care on the day of discharge: 35 minutes. Resident Activity Tracking Resident Involvement: Resident Care Provided Care Provided: Adult Hospital Medicine
[2024-07-27 08:28] LABS: Basophils # (auto) 0.04 K/uL (0.00-0.20); Basophils % (auto) 0.5 %; Eosinophils # (auto) 0.14 K/uL (0.00-0.50); Eosinophils % (auto) 1.8 %; Hematocrit (blood only) 29.6 % (42.0-52.0); Hemoglobin 9.8 g/dl (14.0-18.0); Immature Granulocytes # (auto) 0.02 K/uL (0.01-0.20); Immature Granulocytes % (auto) 0.3 %; Lymphocytes % (auto) 16.8 %; Mean Corpuscular Hemoglobin 29.1 pg (25.0-34.0); Mean Corpuscular Hgb Conc 33.1 g/dL (32.0-36.0); Mean Corpuscular Volume 87.8 fL (80.0-100.0); Mean Platelet Volume 10.9 fL (9.4-12.4); Monocytes # (auto) 0.51 K/uL (0.11-0.59); Monocytes % (auto) 6.6 %; Neutrophils # (auto) 5.75 K/uL (1.40-6.50); Platelet Count 241 K/uL (130-400); RDW Coefficient of Variation 14.2 % (11.5-14.5); RDW Standard Deviation 46.1 fL (36.4-46.3); Red Blood Count 3.37 M/uL (4.70-6.10); White Blood Count 7.76 K/ul (4.8-10.8)
[2024-07-27 08:47] LABS: BUN Creatinine Ratio 22.4 (10-20); Calcium 8.9 mg/dl (8.6-10.3); Creatinine Clr Calc Pharmacy 42.7 ml/min; Potassium 3.9 mmol/L (3.5-5.1)
--- NOTE | 2024-07-27 13:49 | Urology Progress Note ---
Date of Service July 27, 2024 Assessment & Plan (1) UTI (urinary tract infection): (2) Acute urinary retention: Plan -Follow-up for acute urinary retention and UTI -Afebrile with stable vitals -Labs today show no leukocytosis and creatinine 1.65 (was 1.39 yesterday) -Most recent urine culture grew Staph aureus MRSA and Enterococcus -Mott catheter currently intact and draining clear yellow urine, output appears adequate -No acute intervention warranted -Maintain Mott catheter for approximately 1 week. We can coordinate voiding trial in the office, and potentially CIC teaching at that time -Continue antibiotic therapy, will likely require at total of 10 days for treatment -Continue Flomax -Urology will sign off. Please call with any further questions or concerns. Admission and Anticipated Discharge Date Admission Date: July 25, 2024 Subjective Patient seen at bedside today Awake and resting in bed on arrival No acute distress Patient reports his catheter was leaking earlier this morning and was adjusted by nursing staff Mott currently draining clear yellow urine No reported pain at present No fevers Review of Systems Constitutional: as per Subjective / HPI Genitourinary: + as per Subjective / HPI Physical Exam Constitutional: no acute distress Respiratory: no respiratory distress and no labored breathing Neurologic: moves all extremities and awake Psychiatric: A+Ox3, euthymic affect Genitourinary: Mott intact Results & Data Vital Signs (Past 12 Hours) Vital Signs Temp Pulse Resp BP Pulse Ox O2 Del Method 07/27/24 07:58 36.7 C 76 16 163/77 H 97 Room Air 07/26/24 23:58 72 165/79 H PG Care Time/CCT Total # of Minutes Spent Total Time Spent with Patient: Total time spent is greater than 50% in coordination of care (as documented) at patient's floor/unit and/or counseling patient: Coding Level of Care Code 52237 SUB INP/OBS CARE 2/35MIN Diagnoses UTI (urinary tract infection) N39.0 Acute urinary retention R33.8
[2024-07-27 15:14] VITALS: PULSE 78; TEMP 97.9
[2024-07-27 15:35] VITALS: BP 179/81
== END 2024-07-27 16:18 | disposition home or self-care (01) ==
LOC: 3W 15:52 → ED 15:52 → SUATTDRO 19:53 → 3W 21:58

== ENCOUNTER 2024-08-29 23:17 | Inpatient (IN) ==
[2024-08-30 00:26] LABS: Basophils # (auto) 0.03 K/uL (0.00-0.20); Basophils % (auto) 0.3 %; Eosinophils % (auto) 1.1 %; Hematocrit (blood only) 35.1 % (42.0-52.0); Hemoglobin 10.9 g/dl (14.0-18.0); Immature Granulocytes # (auto) 0.04 K/uL (0.01-0.20); Immature Granulocytes % (auto) 0.5 %; Lymphocytes # (auto) 0.84 K/uL (1.20-3.40); Lymphocytes % (auto) 9.6 %; Mean Corpuscular Hemoglobin 28.3 pg (25.0-34.0); Mean Corpuscular Hgb Conc 31.1 g/dL (32.0-36.0); Mean Corpuscular Volume 91.2 fL (80.0-100.0); Mean Platelet Volume 11.5 fL (9.4-12.4); Monocytes # (auto) 0.52 K/uL (0.11-0.59); Monocytes % (auto) 5.9 %; Neutrophils # (auto) 7.22 K/uL (1.40-6.50); Neutrophils % (auto) 82.6 %; Platelet Count 209 K/uL (130-400); RDW Coefficient of Variation 15.2 % (11.5-14.5); RDW Standard Deviation 50.8 fL (36.4-46.3); Red Blood Count 3.85 M/uL (4.70-6.10); White Blood Count 8.75 K/ul (4.8-10.8)
[2024-08-30 00:31] LABS: Albumin Globulin Ratio 1.1 (0.9-2); Albumin Level 3.8 gm/dl (3.4-5.0); BUN Creatinine Ratio 22.4 (10-20); Bilirubin,Total 0.5 mg/dl (0.2-1.0); Creatinine Clr Calc Pharmacy 37.2 ml/min; Globulin 3.6 gm/dl (2.5-4.0); Magnesium 1.9 mg/dl (1.7-2.4); Potassium 5.3 mmol/L (3.5-5.1); Total Protein 7.4 gm/dl (6.0-8.3)
--- NOTE | 2024-08-30 00:37 | Emergency Department Note ---
Impression & Plan Dyspnea, Acute respiratory failure with hypoxia, Elevated troponin, CHF (congestive heart failure), Anemia ED Provider Note ED Provider Note NAME: INES CASTRO Sr AGE:78 SEX: Male : 1945 ARRIVES VIA: EMS INFORMANT: Patient ED PROVIDER(s): Sydney Dominguez DO CHIEF COMPLAINT: Weakness, fatigue HPI: This is an 78-year-old male brought in by EMS due to concern for weakness per his report. Patient states his was ill recently and hospitalized and then he began getting sick about a week ago also. He states he had discomfort tonight trying to lay flat to sleep and has felt increased fatigue and weakness. Patient is a difficult historian at bedside. He denies any history of heart or lung problems and cannot tell me if the lower extremity edema noted is new or not. He denies fevers or chills, current chest pain, abdominal pain, denies any sense of being short of breath. He denies vomiting and diarrhea. EMS reported patient with significant increased work of breathing and was 89% on room air on their arrival. He was maintained on oxygen throughout. Patient denies any history of requiring oxygen. He is a former smoker. PAST MEDICAL HISTORY:See Below PAST SURGICAL HISTORY:See Below FAMILY HISTORY:See Below SOCIAL HISTORY:See Below HOME MEDICATIONS:See Below ALLERGIES:See Below VITALS:See Below PHYSICAL EXAMINATION: GENERAL: alert, unwell appearing, well nourished, no distress, non-toxic EYE EXAM: normal conjunctiva, PERRL and EOM's grossly intact OROPHARYNX: no exudate, no erythema, lips, buccal mucosa, and tongue normal and mucous membranes are moist NECK: supple, no nuchal rigidity, no adenopathy, non-tender LUNGS: Decreased bilaterally to auscultation. Normal chest wall mechanics, no w/r/r, tachypnea noted, conversational dyspnea HEART: no murmurs, S1 normal and S2 normal ABDOMEN: abdomen soft, non-tender, normo-active bowel sounds, no masses, no rebound or guarding. BACK: Back is symmetrical on inspection and there is no deformity, no midline tenderness, no CVA tenderness. SKIN: no rashes, petechiae, orbruising UPPER EXTREMITIES: upper extremities are grossly normal. FROM, nml pulses b/l. LOWER EXTREMITIES: 3+ b/l pitting edema. FROM, nml pulses b/l. NEURO EXAM: Normal sensorium, cranial nerves II-XII grossly intact, normal speech, no facial droop,nogross weakness of arms, no gross weakness of legs. Gross sensation intact. No ataxia. Vital Signs: reviewed and remarkable Differential Diagnosis: pneumonia, bronchitis, COPD/Asthma exacerbation, pneumothorax, pulmonary embolism, congestive heart failure, acute coronary syndrome, as well as others were considered MEDICAL DECISION MAKING: This is an 78-year-old male brought in by EMS due to increased weakness and shortness of breath. Patient noted to be 89% on room air for EMS and was placed on oxygen via nasal cannula. Patient admits to increased weakness and recent illness. Admits to difficulty sleeping with accompanying orthopnea. He states he has had a mild nonproductive cough. He was afebrile and hemodynamically stable. Labs drawn and sent, IV established, EKG and chest x-ray performed at bedside and interpreted by me and patient monitored on telemetry. Patient was able to be weaned down off of oxygen however was noted to be persistently tachypneic and had conversational dyspnea. RT contacted to come and start the patient on high flow nasal cannula due to his increased work of breathing. Patient noted to have increased interstitial markings on the chest x-ray. His nasal swab obtained and sent for [employer] was positive for coronavirus. He was noted to have an elevated troponin and BNP. Patient noted to have an elevated creatinine additionally. I suspect these findings are more likely related to demand and DANIEL and not ACS primarily. Patient denied any chest pain. They are suggestive of possible evolving CHF. Upon review of EMR, no prior echo noted. Anemia noted however stable compared to prior. Patient remained hemodynamically stable. Case discussed with the hospitalist team for additional evaluation and management. We also discussed addition of antibiotics given advanced age and comorbidities and asymmetric findings in the lower lobes on chest x-ray. Patient was given additional dose of furosemide in the emergency department due to concern for evolving CHF. Consultation(s): 0135: Discussed with Dr. Wilks, [facility] hospitalist team, for additional evaluation and management. ER Treatment Provided: See below Diagnostics Interpreted By Me: -ECG: Normal sinus at 91, normal axis, normal intervals, ST depression noted V5, V6, lead II, baseline aberrancy also noted, inverted T waves seen in lead I, aVF; compared to 05/05/2024, ST/T wave findings are not new however appear worse -Cardiac Monitoring: An order was placed for continuous cardiac monitoring. The monitor shows a rate of 98 with normal sinus rhythm. -Laboratory studies: As stated above and show below. -Imaging studies: cxr: No cardiomegaly, no wide mediastinum, no pleural effusion, increased interstitial markings bilateral lower lobes worse on the right than left Triage Nursing Note Reviewed Prior/Outside Records Reviewed Critical Care: Critical care of 39 min performed to assess and manage high likelihood of life- threatening acute hypoxic respiratory failure, involving labs and imaging performed with assessment to evaluate dyspnea and hypoxia diagnosis with frequent reassessment. This time includes bedside time, treatment discussions with patient/family/consultants, documentation time and excludes procedure time. 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 Vitamin B12 deficiency Right shoulder pain (Acute) Cataract, bilateral (Acute) Adjustment disorder (Acute) Medical History (Updated 08/31/24 @ 03:30 by Sydney Dominguez DO) Multifocal pneumonia Constipation Acute kidney injury superimposed on chronic kidney disease BPH w urinary obs/LUTS History of UTI 04/10/24 hospitalization - treated Liver lesion noticed on imaging - no other further direction was given as per patient 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 BPH (benign prostatic hyperplasia) Mott catheter in place last changed 05/05/24 Urinary retention Uncontrolled type 2 diabetes mellitus with hyperglycemia, without long-term current use of insulin - IDDM - as of 05/14/24- stopped taking insulin 4 days ago - no longer using latahsa system - monitors glucose with onetouch - Hgb A1C >16.9 during 04/2024 admission Hypertension Dyslipidemia Chronic kidney disease, stage III (moderate) Dr Mccormack Surgical History Hx of tonsillectomy Hx of tooth extraction Status post orchiopexy Hx of right cataract extraction Family History Other Adopted Social History Smoking Status: Never smoker Tobacco Type: Cigarettes Age Started Using Tobacco: 13; Age Quit Using Tobacco: 53; packs per day: 1; Second Hand Exposure: No; Do You Dip or Chew Tobacco: No; Tobacco Cessation Education Requested by Patient: No Hx Alcohol Use: No Hx Substance Use: No Preferred Language: Uzbek Communication Ability: Effective Spring Coiler Hand Required: No Beliefs That Will Affect Care: None marital status: Current Living Situation: Spouse current occupational status: employed 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 Other Information That Helps Us Care for You: No Feels Safe at Home: Yes Safety Concerns: Feels Safe At This Time Childhood Exposure to Second-Hand Smoke: Yes Diet: diabetic Dental Care, Regularly: No Physical Activity Frequency: Does not Exercise Seatbelt Use: sometimes Sunscreen Use: No Assistive Devices: None Allergies Allergies Allergy/AdvReac Type Severity Reaction Status Date / Time No Known Allergies Allergy Verified 08/30/24 00:17 Home Meds Home Medications Medication Instructions Recorded Confirmed cetirizine 10 mg capsule (Zyrtec) 10 mg PO DAILY PRN allergy symptoms 04/15/19 08/30/24 cholecalciferol (vitamin D3) 50 2,000 units PO DAILY 04/15/19 08/30/24 mcg (2,000 unit) capsule acetaminophen 650 mg 1,300 mg PO Q12H PRN Pain 05/14/24 08/30/24 tablet,extended release insulin glargine 100 unit/mL (3 32 unit subcut HS 08/25/24 08/30/24 mL) subcutaneous pen (Lantus Solostar U-100 Insulin) oxybutynin chloride 5 mg tablet 5 mg PO UD PRN Bladder Spasms 08/30/24 08/30/24 Previous Rx's Medication Instructions Recorded blood-glucose meter (OneTouch #1 ea 04/20/24 Verio Flex Meter) lancets 30 gauge (OneTouch Delica #100 ea 04/20/24 Plus Lancet) tamsulosin 0.4 mg capsule (Flomax) 0.4 mg PO QAM #90 caps 05/19/24 losartan 50 mg tablet 50 mg PO DAILY #90 tabs 06/15/24 pen needle,diabetic, disp unit 32 #100 ea 07/31/24 gauge x ", remover and disposal unit blood sugar diagnostic (OneTouch #100 ea 08/25/24 Verio test strips) Results & Data (ED) Vital Signs Vital Signs - 24 hr 08/29/24 23:25 Temperature 36.5 C Temperature Source Oral Pulse Rate 95 H Respiratory Rate 26 H Respiratory Effort / Characteristics Accessory Muscle Use Blood Pressure 137/88 Blood Pressure Mean 104 Pulse Oximetry 96 Oxygen Delivery Method Room Air Sepsis Recent Fever Within 48 Hours No Sepsis New/Unexplained Change in Mental Status No Sepsis Action Taken by Nursing No Action Required Laboratory Data 08/29/24 23:40 08/29/24 23:40 Lab Results 08/29/24 08/29/24 08/30/24 Range/Units 23:37 23:40 00:08 WBC 8.75 (4.8-10.8) K/ul RBC 3.85 L (4.70-6.10) M/uL Hgb 10.9 L (14.0-18.0) g/dl Hct 35.1 L (42.0-52.0) % MCV 91.2 (80.0-100.0) fL MCH 28.3 (25.0-34.0) pg MCHC 31.1 L (32.0-36.0) g/dL RDW Std Deviation 50.8 H (36.4-46.3) fL RDW Coeff of Hollis 15.2 H (11.5-14.5) % Plt Count 209 (130-400) K/uL MPV 11.5 (9.4-12.4) fL Immature Gran % (Auto) 0.5 % Neut % (Auto) 82.6 % Lymph % (Auto) 9.6 % Gilchrist % (Auto) 5.9 % Eos % (Auto) 1.1 % Baso % (Auto) 0.3 % Neut # (Auto) 7.22 H (1.40-6.50) K/uL Lymph # (Auto) 0.84 L (1.20-3.40) K/uL Gilchrist # (Auto) 0.52 (0.11-0.59) K/uL Eos # (Auto) 0.10 (0.00-0.50) K/uL Baso # (Auto) 0.03 (0.00-0.20) K/uL Immature Gran # (Auto) 0.04 (0.01-0.20) K/uL Sodium 140 (136-145) mmol/L Potassium 5.3 H (3.5-5.1) mmol/L Chloride 110 H (98-107) mmol/L Carbon Dioxide 25 (21-32) mmol/L Anion Gap 5 (3-11) BUN 44 H (6-23) mg/dl Creatinine 1.96 H (0.6-1.4) mg/dl Est Cr Clr Drug Dosing 37.2 ml/min eGFR 33.93 BUN/Creatinine Ratio 22.4 H (10-20) Glucose 191 H (70-99(Fasting)) mg/dl Lactate (0.4-2.0) mmol/L Calcium 9.0 (8.6-10.3) mg/dl Magnesium 1.9 (1.7-2.4) mg/dl Total Bilirubin 0.5 (0.2-1.0) mg/dl AST 23 (13-39) U/L ALT 29 (7-52) U/L Alkaline Phosphatase 88 (34-104) U/L Troponin I High Sens 90.2 H* (0-20) pg/ml B-Natriuretic Peptide 2146 H (0-100) pg/ml Total Protein 7.4 (6.0-8.3) gm/dl Albumin 3.8 (3.4-5.0) gm/dl Globulin 3.6 (2.5-4.0) gm/dl Albumin/Globulin Ratio 1.1 (0.9-2) Lipase 4 L (11-82) U/L Procalcitonin (0-0.5) ng/ml TSH 3.281 (0.300-4.500) uIu/ml Adenovirus (PCR) Not Detected (NotDetected) B. pertussis DNA (PCR) Not Detected (NotDetected) B.parapertussis DNA PCR Not Detected (NotDetected) C. pneumoniae DNA (PCR) Not Detected (NotDetected) Coronavirus OC43 (PCR) DETECTED A (NotDetected) Coronavirus HKU1 (PCR) Not Detected (NotDetected) Coronavirus 229E (PCR) Not Detected (NotDetected) SARS-CoV-2 (PCR) Not Detected (NotDetected) Coronavirus NL63 (PCR) Not Detected (NotDetected) Human Metapneumovir PCR Not Detected (NotDetected) Influenza Type A (PCR) Not Detected (NotDetected) Influenza Type B (PCR) Not Detected (NotDetected) M. pneumoniae (PCR) Not Detected (NotDetected) Parainfluenza 1 (PCR) Not Detected (NotDetected) Parainfluenza 2 (PCR) Not Detected (NotDetected) Parainfluenza 3 (PCR) Not Detected (NotDetected) Parainfluenza 4 (PCR) Not Detected (NotDetected) RSV (PCR) Not Detected (NotDetected) Entero/Rhino (PCR) Not Detected (NotDetected) 08/30/24 Range/Units 01:27 WBC (4.8-10.8) K/ul RBC (4.70-6.10) M/uL Hgb (14.0-18.0) g/dl Hct (42.0-52.0) % MCV (80.0-100.0) fL MCH (25.0-34.0) pg MCHC (32.0-36.0) g/dL RDW Std Deviation (36.4-46.3) fL RDW Coeff of Hollis (11.5-14.5) % Plt Count (130-400) K/uL MPV (9.4-12.4) fL Immature Gran % (Auto) % Neut % (Auto) % Lymph % (Auto) % Gilchrist % (Auto) % Eos % (Auto) % Baso % (Auto) % Neut # (Auto) (1.40-6.50) K/uL Lymph # (Auto) (1.20-3.40) K/uL Gilchrist # (Auto) (0.11-0.59) K/uL Eos # (Auto) (0.00-0.50) K/uL Baso # (Auto) (0.00-0.20) K/uL Immature Gran # (Auto) (0.01-0.20) K/uL Sodium (136-145) mmol/L Potassium (3.5-5.1) mmol/L Chloride (98-107) mmol/L Carbon Dioxide (21-32) mmol/L Anion Gap (3-11) BUN (6-23) mg/dl Creatinine (0.6-1.4) mg/dl Est Cr Clr Drug Dosing ml/min eGFR BUN/Creatinine Ratio (10-20) Glucose (70-99(Fasting)) mg/dl Lactate 1.3 (0.4-2.0) mmol/L Calcium (8.6-10.3) mg/dl Magnesium (1.7-2.4) mg/dl Total Bilirubin (0.2-1.0) mg/dl AST (13-39) U/L ALT (7-52) U/L Alkaline Phosphatase (34-104) U/L Troponin I High Sens (0-20) pg/ml B-Natriuretic Peptide (0-100) pg/ml Total Protein (6.0-8.3) gm/dl Albumin (3.4-5.0) gm/dl Globulin (2.5-4.0) gm/dl Albumin/Globulin Ratio (0.9-2) Lipase (11-82) U/L Procalcitonin 0.09 (0-0.5) ng/ml TSH (0.300-4.500) uIu/ml Adenovirus (PCR) (NotDetected) B. pertussis DNA (PCR) (NotDetected) B.parapertussis DNA PCR (NotDetected) C. pneumoniae DNA (PCR) (NotDetected) Coronavirus OC43 (PCR) (NotDetected) Coronavirus HKU1 (PCR) (NotDetected) Coronavirus 229E (PCR) (NotDetected) SARS-CoV-2 (PCR) (NotDetected) Coronavirus NL63 (PCR) (NotDetected) Human Metapneumovir PCR (NotDetected) Influenza Type A (PCR) (NotDetected) Influenza Type B (PCR) (NotDetected) M. pneumoniae (PCR) (NotDetected) Parainfluenza 1 (PCR) (NotDetected) Parainfluenza 2 (PCR) (NotDetected) Parainfluenza 3 (PCR) (NotDetected) Parainfluenza 4 (PCR) (NotDetected) RSV (PCR) (NotDetected) Entero/Rhino (PCR) (NotDetected) Administered Medications Albuterol (Albut/Ipratrop 3mg/0.5mg Neb 3 Ml Vial) 3 ml NEB Q2H PRN; Protocol PRN Reason: dyspnea Stop: 09/29/24 01:27 Last Admin: 08/30/24 02:12 Dose: 3 ml Documented By: ALTAF Furosemide (Furosemide 40 Mg/4 Ml Vial) 40 mg IV QAM ZAIN Stop: 09/29/24 08:59 Last Admin: 08/30/24 08:20 Dose: 40 mg Documented By: CARLEEN Guaifenesin (Guaifenesin 600 Mg Tabcr) 600 mg PO Q12 ZAIN Stop: 09/29/24 08:59 Last Admin: 08/30/24 20:51 Dose: 600 mg Documented By: Admin: 08/30/24 08:19 Dose: 600 mg Documented By: CARLEEN Piperacillin Sod/Tazobactam Sod (Zosyn) 4.5 gm in 100 mls @ 25 mls/hr IV Q8H ZAIN; Protocol Stop: 09/06/24 07:59 Last Admin: 08/31/24 00:27 Dose: 25 mls/hr Documented By: Infusion: 08/30/24 20:51 Dose: Infused Documented By: Admin: 08/30/24 16:31 Dose: 25 mls/hr Documented By: Infusion: 08/30/24 13:16 Dose: Infused Documented By: Admin: 08/30/24 08:39 Dose: 25 mls/hr Documented By: CARLEEN Linezolid (Zyvox) 600 mg in 300 mls @ 300 mls/hr IV Q12H ZAIN Stop: 09/06/24 01:59 Last Admin: 08/31/24 02:26 Dose: 300 mls/hr Documented By: Infusion: 08/30/24 15:33 Dose: Infused Documented By: OTan Admin: 08/30/24 13:52 Dose: 300 mls/hr Documented By: OTan Infusion: 08/30/24 04:45 Dose: Infused Documented By: Admin: 08/30/24 02:33 Dose: 300 mls/hr Documented By: LAURYN Insulin Aspart (Insulin Aspart Per Unit Charge) 0 units SC ACHS ZAIN Stop: 09/29/24 07:29 Last Admin: 08/30/24 20:46 Dose: Not Given Documented By: MANUEL Co-signed By: MEAGAN Admin: 08/30/24 17:24 Dose: 3 units Documented By: CARLEEN Co-signed By: ALONDRA Admin: 08/30/24 12:42 Dose: 9 units Documented By: OTan Co-signed By: ALONDRA Admin: 08/30/24 08:28 Dose: 17 units Documented By: OTan Co-signed By: KEN Tamsulosin HCl (Tamsulosin Hcl 0.4 Mg Cap) 0.4 mg PO QAM ZAIN Stop: 09/29/24 08:59 Last Admin: 08/30/24 08:19 Dose: 0.4 mg Documented By: CARLEEN Vitamin D (Cholecalciferol 25 Mcg (1000 Units) Tab) 50 mcg PO DAILY ZAIN Stop: 09/29/24 08:59 Last Admin: 08/30/24 08:19 Dose: 50 mcg Documented By: CARLEEN Discontinued Medications Furosemide (Furosemide 40 Mg/4 Ml Vial) 40 mg IV ONE ONE Stop: 08/30/24 01:09 Last Admin: 08/30/24 01:17 Dose: 40 mg Documented By: LAURYN Piperacillin Sod/Tazobactam Sod (Zosyn) 4.5 gm in 100 mls @ 200 mls/hr IV NOW STA; Protocol Stop: 08/30/24 01:57 Last Infusion: 08/30/24 04:45 Dose: Infused Documented By: Admin: 08/30/24 01:58 Dose: 200 mls/hr Documented By: LAURYN Methylprednisolone 40 mg/ (Syringe) 0.64 mls @ 1.5 mls/min IV Q12H ZAIN Stop: 09/29/24 08:59 Last Admin: 08/30/24 08:20 Dose: 1.5 mls/min Documented By: CARLEEN Insulin Aspart (Insulin Aspart Per Unit Charge) 0 units SC .EXTRA DOSE ONE Stop: 08/30/24 05:01 Last Admin: 08/30/24 05:52 Dose: 5 units Documented By: VINI Co-signed By: MANUEL Insulin Glargine (Lantus Per Unit Charge) 23 units SC NOW ONE Stop: 08/30/24 05:01 Last Admin: 08/30/24 05:52 Dose: 23 units Documented By: VINI Co-signed By: MANUEL Insulin Glargine (Lantus Per Unit Charge) 0 units SC HS [facility]; Protocol Stop: 08/30/24 23:59 Last Admin: 08/30/24 20:46 Dose: Not Given Documented By: MANUEL Methylprednisolone (Methylprednisolone 125 Mg/2 Ml Vial) 60 mg IV NOW STA Stop: 08/30/24 01:29 Last Admin: 08/30/24 01:54 Dose: 60 mg Documented By: LAURYN Discharge Plan Visit Data Chief Complaint: Shortness of Breath/Dyspnea Stated Complaint: COVID POS, SOB ED Provider: Sydney Dominguez Discharge Problem: Dyspnea, Acute respiratory failure with hypoxia, Elevated troponin, CHF (congestive heart failure), Anemia Patient Disposition: Admitted As Inpatient Discharge Instructions Interventions: ED Discharge Assessment Last Done: 08/30/24 04:14
[2024-08-30 00:47] LABS: Thyroid Stimulating Hormone 3.281 uIu/ml (0.300-4.500)
[2024-08-30 00:55] LABS: Troponin I High Sensitivity 90.2 pg/ml (0-20)
[2024-08-30 01:04] LABS: Adenovirus PCR Not Detected (NotDetected); Bordetella parapertussis PCR Not Detected (NotDetected); Bordetella pertussis PCR Not Detected (NotDetected); Chlamydia pneumoniae PCR Not Detected (NotDetected); Coronavirus 229E PCR Not Detected (NotDetected); Coronavirus CoV-2 (COVID19)PCR Not Detected (NotDetected); Coronavirus HKU1 PCR Not Detected (NotDetected); Coronavirus NL63 PCR Not Detected (NotDetected); Coronavirus OC43PCR DETECTED (NotDetected); Human Metapneumovirus PCR Not Detected (NotDetected); Influenza A PCR Not Detected (NotDetected); Influenza B PCR Not Detected (NotDetected); Mycoplasma pneumoniae PCR Not Detected (NotDetected); Parainfluenza Virus 1 PCR Not Detected (NotDetected); Parainfluenza Virus 2 PCR Not Detected (NotDetected); Parainfluenza Virus 3 PCR Not Detected (NotDetected); Parainfluenza Virus 4 PCR Not Detected (NotDetected); Respiratory Syncytial VirusPCR Not Detected (NotDetected); Rhinovirus/Enterovirus PCR Not Detected (NotDetected)
[2024-08-30] MEDS: FUROSEMIDE 40 MG/4 ML VIAL IV ONE (01:17)
--- NOTE | 2024-08-30 01:43 | History & Physical Report ---
Date of Service August 30, 2024 Assessment & Plan (1) Acute respiratory failure with hypoxia: (2) Multifocal pneumonia: (3) Pleural effusion: (4) Elevated troponin: (5) CHF (congestive heart failure): (6) Acute kidney injury superimposed on chronic kidney disease: (7) Coronavirus infection: Plan The patient is an 78-year-old male with a past medical history including diabetes mellitus, BPH with LUTS, anemia chronic disease, proteinuria, vitamin D deficiency, CKD stage III, bilateral ptosis/dermatochalasis of upper lids, B12 deficiency, bilateral cataracts, adjustment disorder, allergic rhinitis, hypertension, bladder spasm. Most recent hospitalization Tyler Murray was from 07/25-07/27/2024, for urinary tract infection, treated with IV doxycycline, IV levofloxacin, and discharged on oral antibiotics. Urine culture and sensitivity from 07/20/2024 grew MRSA and Enterococcus faecalis. Workup in the emergency department this admission included elevated troponin 90.2, BNP 2146, BioFire positive for OC 43 virus, chest x-ray with right lower lobe and right middle lobe, but parapneumonic effusion, and smaller left pleural effusion. Creatinine was also noted to be 1.96. Patient was given furosemide 40 mg IV from the ED, and then was referred for evaluation for admission. #Acute respiratory failure with hypoxia/OC 43 virus infection/CHF exacerbation/multifocal pneumonia with parapneumonic effusion- Linezolid 600 mg IV every 12 hours Zosyn 4.5 g IV every 8 hours DuoNebs every 2 hours as needed Mucinex 600 mg p.o. every 12 hours Methylprednisolone 60 mg IV now then 40 mg IV every 12 hours #CHF exacerbation/elevated troponin- The patient will be admitted to telemetry for serial cardiac enzymes, serial EKG's, cardiac rhythm monitoring and a 2-D echocardiogram with Dopplers. Initial troponin 90.2 and follow-up pending BNP 2146 Given furosemide 40 mg IV in ED, and continue every morning #Acute kidney injury superimposed on CKD- Creatinine 1.96, with base range 1.39-1.65 Follow serially while diuresing Mild hyperkalemia with potassium 5.3, expect to respond IV furosemide Hold losartan #BioFire positive for OC 43- Treatment as above Droplet precautions #Chronic medical conditions: BPH with LUTS/bladder spasm-tamsulosin and oxybutynin Diabetes mellitus- Continue glargine 32 units subcu at bedtime, and will consult pharmacy for glycemic management steroids in particular CODE STATUS DNR/DNI History of Present Illness Chief Complaint: The patient presents to the emergency department via EMS due to concerns regarding progressive generalized weakness, shortness of breath, and dyspnea on exertion that began about a week ago. He was having worsening difficulty breathing as he was trying to lay flat this evening, and was brought to the emergency department by EMS as noted Primary Care Provider: Star Duron MD The patient is an 78-year-old male with a past medical history including diabe julius mellitus, BPH with LUTS, anemia chronic disease, proteinuria, vitamin D deficiency, CKD stage III, bilateral ptosis/dermatochalasis of upper lids, B12 deficiency, bilateral cataracts, adjustment disorder, allergic rhinitis, hypertension, bladder spasm. Most recent hospitalization Tyler Murray was from 07/25-07/27/2024, for urinary tract infection, treated with IV doxycycline, IV levofloxacin, and discharged on oral antibiotics. Urine culture and sensitivity from 07/20/2024 grew MRSA and Enterococcus faecalis. Workup in the emergency department this admission included elevated troponin 90.2, BNP 2146, BioFire positive for OC 43 virus, chest x-ray with right lower lobe and right middle lobe, but parapneumonic effusion, and smaller left pleural effusion. Creatinine was also noted to be 1.96. Patient was given furosemide 40 mg IV from the ED, and then was referred for evaluation for admission. Allergies Allergy/AdvReac Type Severity Reaction Status Date / Time No Known Allergies Allergy Verified 08/30/24 00:17 Home Medications Medication Instructions Recorded Confirmed Type cetirizine 10 mg capsule (Zyrtec) 10 mg PO DAILY PRN allergy symptoms 04/15/19 08/30/24 History cholecalciferol (vitamin D3) 50 2,000 units PO DAILY 04/15/19 08/30/24 History mcg (2,000 unit) capsule blood-glucose meter (OneTouch #1 ea 04/20/24 08/30/24 Rx Verio Flex Meter) lancets 30 gauge (OneTouch Delica #100 ea 04/20/24 08/30/24 Rx Plus Lancet) acetaminophen 650 mg 1,300 mg PO Q12H PRN Pain 05/14/24 08/30/24 History tablet,extended release tamsulosin 0.4 mg capsule (Flomax) 0.4 mg PO QAM #90 caps 05/19/24 08/30/24 Rx losartan 50 mg tablet 50 mg PO DAILY #90 tabs 06/15/24 08/30/24 Rx pen needle,diabetic, disp unit 32 #100 ea 07/31/24 08/30/24 Rx gauge x 5/32", remover and disposal unit blood sugar diagnostic (OneTouch #100 ea 08/25/24 08/30/24 Rx Verio test strips) insulin glargine 100 unit/mL (3 32 unit subcut HS 08/25/24 08/30/24 History mL) subcutaneous pen (Lantus Solostar U-100 Insulin) oxybutynin chloride 5 mg tablet 5 mg PO UD PRN Bladder Spasms 08/30/24 08/30/24 History Past Med/Surg History Problem List (Updated 08/30/24 @ 03:13 by Kurtis Wilks MD) Coronavirus infection CHF (congestive heart failure) Elevated troponin Acute respiratory failure with hypoxia Pleural effusion Dyspnea (Acute) Hyperglycemia due to type 2 diabetes mellitus Acute urinary retention (Acute) Anemia of chronic disease Proteinuria Vitamin D deficiency DM type 2 causing CKD stage 3 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 Vitamin B12 deficiency Right shoulder pain (Acute) Cataract, bilateral (Acute) Adjustment disorder (Acute) Medical History (Updated 08/30/24 @ 03:13 by Kurtis Wilks MD) Multifocal pneumonia Constipation Acute kidney injury superimposed on chronic kidney disease BPH w urinary obs/LUTS History of UTI 04/10/24 hospitalization - treated Liver lesion noticed on imaging - no other further direction was given as per patient 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 BPH (benign prostatic hyperplasia) Mott catheter in place last changed 05/05/24 Urinary retention Uncontrolled type 2 diabetes mellitus with hyperglycemia, without long-term current use of insulin - IDDM - as of 05/14/24- stopped taking insulin 4 days ago - no longer using latasha system - monitors glucose with onetouch - Hgb A1C >16.9 during 04/2024 admission Hypertension Dyslipidemia Chronic kidney disease, stage III (moderate) Dr Mccormack Surgical History Hx of tonsillectomy Hx of tooth extraction Status post orchiopexy Hx of right cataract extraction Family History Other Adopted Social History Smoking Status: Former smoker Tobacco Type: Cigarettes Age Started Using Tobacco: 13; Age Quit Using Tobacco: 53; packs per day: 1; Second Hand Exposure: No; Do You Dip or Chew Tobacco: No; Hx Alcohol Use: No Hx Substance Use: No Preferred Language: Georgian Communication Ability: Effective Cosmetician Apprentice Required: No Beliefs That Will Affect Care: None marital status: Current Living Situation: Spouse current occupational status: employed 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 Feels Safe at Home: Yes Childhood Exposure to Second-Hand Smoke: Yes Diet: diabetic Dental Care, Regularly: No Physical Activity Frequency: Does not Exercise Seatbelt Use: sometimes Sunscreen Use: No Assistive Devices: Cane Review of Systems Review of Systems: The patient denies chest pain, palpitations, lower extremity swelling, sore throat, fevers, chills, sweats, nausea, vomiting, diarrhea , constipation, abdominal pain, pelvic pain, blood in urine or stool, dysuria, urinary frequency or urgency, lightheadedness, dizziness, headache, loss of consciousness, rash, abnormal bruising or bleeding, focal weakness, numbness or tingling in arms or legs, generalized arthralgias or myalgias, back or neck pain, or night sweats. The review of systems is otherwise negative other than for that already noted above, and at least 10 systems have been reviewed. Physical Exam Physical Exam: The patient is awake, alert and oriented 3, well developed and well nourished, normocephalic and atraumatic, lying in bed and in no acute distress. HEENT--PERRL, EOMI, mucous membranes and oropharynx normal Neck--supple. No JVD. No bruits. Thyroid normal, trachea midline, no adenopathy. Heart--normal S1 and S2. No murmurs, rubs or gallops. Lungs--few coarse breath sounds bilaterally, with decreased breath sounds right base. No respiratory distress, no accessory muscle use. Abdomen--normal bowel sounds and soft. Nontender. Nondistended, no hernias or masses, no organomegaly. Extremities-- 1+ bilateral pretibial and pedal pitting edema. Dermatologic--normal skin turgor, normal color, no abnormal lymph nodes, no rash. Neurologic--cranial nerves II through XII grossly intact. Rheumatologic--normal range of motion. Psychiatric--normal affect. Results & Data Results & Data Vital Signs (Past 12 Hours) Vital Signs Temp Pulse Resp BP Pulse Ox O2 Del Method 08/30/24 01:16 96 Room Air 08/30/24 00:31 84 18 147/77 H 94 Room Air 08/29/24 23: 36.5 C 95 H 26 H 137/88 96 Room Air Laboratory Results Laboratory Results WBC 8.75 K/ul (4.8-10.8) 08/29/24 23:40 RBC 3.85 M/uL (4.70-6.10) L 08/29/24 23:40 Hgb 10.9 g/dl (14.0-18.0) L 08/29/24 23:40 Hct 35.1 % (42.0-52.0) L 08/29/24 23:40 MCV 91.2 fL (80.0-100.0) 08/29/24 23:40 MCH 28.3 pg (25.0-34.0) 08/29/24 23:40 MCHC 31.1 g/dL (32.0-36.0) L 08/29/24 23:40 RDW Std Deviation 50.8 fL (36.4-46.3) H 08/29/24 23:40 RDW Coeff of Hollis 15.2 % (11.5-14.5) H 08/29/24 23:40 Plt Count 209 K/uL (130-400) 08/29/24 23:40 MPV 11.5 fL (9.4-12.4) 08/29/24 23:40 Immature Gran % (Auto) 0.5 % 08/29/24 23:40 Neut % (Auto) 82.6 % 08/29/24 23:40 Lymph % (Auto) 9.6 % 08/29/24 23:40 [place] % (Auto) 5.9 % 08/29/24 23:40 Eos % (Auto) 1.1 % 08/29/24 23:40 Baso % (Auto) 0.3 % 08/29/24 23:40 Neut # (Auto) 7.22 K/uL (1.40-6.50) H 08/29/24 23:40 Lymph # (Auto) 0.84 K/uL (1.20-3.40) L 08/29/24 23:40 [place] # (Auto) 0.52 K/uL (0.11-0.59) 08/29/24 23:40 Eos # (Auto) 0.10 K/uL (0.00-0.50) 08/29/24 23:40 Baso # (Auto) 0.03 K/uL (0.00-0.20) 08/29/24 23:40 Immature Gran # (Auto) 0.04 K/uL (0.01-0.20) 08/29/24 23:40 Sodium 140 mmol/L (136-145) 08/29/24 23:40 Potassium 5.3 mmol/L (3.5-5.1) H 08/29/24 23:40 Chloride 110 mmol/L (98-107) H 08/29/24 23:40 Carbon Dioxide 25 mmol/L (21-32) 08/29/24 23:40 Anion Gap 5 (3-11) 08/29/24 23:40 BUN 44 mg/dl (6-23) H 08/29/24 23:40 Creatinine 1.96 mg/dl (0.6-1.4) H 08/29/24 23:40 Est Cr Clr Drug Dosing 37.2 ml/min 08/29/24 23:40 eGFR 33.93 08/29/24 23:40 BUN/Creatinine Ratio 22.4 (10-20) H 08/29/24 23:40 Glucose 191 mg/dl (70-99(Fasting)) H 08/29/24 23:40 Lactate 1.3 mmol/L (0.4-2.0) 08/30/24 01:27 Calcium 9.0 mg/dl (8.6-10.3) 08/29/24 23:40 Magnesium 1.9 mg/dl (1.7-2.4) 08/29/24 23:40 Total Bilirubin 0.5 mg/dl (0.2-1.0) 08/29/24 23:40 AST 23 U/L (13-39) 08/29/24 23:40 ALT 29 U/L (7-52) 08/29/24 23:40 Alkaline Phosphatase 88 U/L (34-104) 08/29/24 23:40 Troponin I High Sens 90.2 pg/ml (0-20) H* 08/29/24 23:40 B-Natriuretic Peptide 2146 pg/ml (0-100) H 08/30/24 00:08 Total Protein 7.4 gm/dl (6.0-8.3) 08/29/24 23:40 Albumin 3.8 gm/dl (3.4-5.0) 08/29/24 23:40 Globulin 3.6 gm/dl (2.5-4.0) 08/29/24 23:40 Albumin/Globulin Ratio 1.1 (0.9-2) 08/29/24 23:40 Lipase 4 U/L (11-82) L 08/29/24 23:40 Procalcitonin 0.09 ng/ml (0-0.5) 08/30/24 01:27 TSH 3.281 uIu/ml (0.300-4.500) 08/29/24 23:40 Adenovirus (PCR) Not Detected (NotDetected) 08/29/24 23:37 B. pertussis DNA (PCR) Not Detected (NotDetected) 08/29/24 23:37 B.parapertussis DNA PCR Not Detected (NotDetected) 08/29/24 23:37 C. pneumoniae DNA (PCR) Not Detected (NotDetected) 08/29/24 23:37 Coronavirus OC43 (PCR) DETECTED (NotDetected) A 08/29/24 23:37 Coronavirus HKU1 (PCR) Not Detected (NotDetected) 08/29/24 23:37 Coronavirus 229E (PCR) Not Detected (NotDetected) 08/29/24 23:37 SARS-CoV-2 (PCR) Not Detected (NotDetected) 08/29/24 23:37 Coronavirus NL63 (PCR) Not Detected (NotDetected) 08/29/24 23:37 Human Metapneumovir PCR Not Detected (NotDetected) 08/29/24 23:37 Influenza Type A (PCR) Not Detected (NotDetected) 08/29/24 23:37 Influenza Type B (PCR) Not Detected (NotDetected) 08/29/24 23:37 M. pneumoniae (PCR) Not Detected (NotDetected) 08/29/24 23:37 Parainfluenza 1 (PCR) Not Detected (NotDetected) 08/29/24 23:37 Parainfluenza 2 (PCR) Not Detected (NotDetected) 08/29/24 23:37 Parainfluenza 3 (PCR) Not Detected (NotDetected) 08/29/24 23:37 Parainfluenza 4 (PCR) Not Detected (NotDetected) 08/29/24 23:37 RSV (PCR) Not Detected (NotDetected) 08/29/24 23:37 Entero/Rhino (PCR) Not Detected (NotDetected) 08/29/24 23:37 Impressions Chest X-Ray 08/29/24 23:52 EXAM: XR chest 1V portable CLINICAL HISTORY: tachypnea TECHNIQUE: An X-ray image of the chest is obtained in AP projection. COMPARISON: No prior studies are available for comparison. FINDINGS: Pulmonary Parenchyma: Background interstitial prominence bilaterally. increased airspace opacification bilaterally, more pronounced in the lower zones, suggestive of infective/inflammatory etiology. A well-defined opacity in the right lower zone along the heart border. Further evaluation with CT should be considered if clinically indicated. Blunting of bilateral costophrenic angles representing pleural effusions. Heart and Mediastinum: The heart size appears enlarged. No mediastinal widening or masses. No hilar or mediastinal lymphadenopathy. Bony Thorax: The bony thorax appears intact without fractures or deformities. Soft Tissues: Soft tissues overlying the chest wall are unremarkable. Overlying chest leads are seen. IMPRESSION: 1. Increased airspace opacification bilaterally, more pronounced/confluent in the lower zones, suggestive of infective/inflammatory etiology. 2. A well-defined opacity in the right lower zone along the heart border. Further evaluation with CT should be considered if clinically indicated. 3. Blunting of bilateral costophrenic angles, likely representing pleural effusions. Electronically signed by Bradly Falcon 08-30-2024 02:04 AM Code Status & VTE Plan Code Status DNR/DNI VTE Prophylaxis Plan VTE Prophylaxis will be ordered: Yes PG Care Time/CCT Total # of Minutes Spent Total Time Spent with Patient: Total time spent is greater than 50% in coordination of care (as documented) at patient's floor/unit and/or counseling patient: Coding Level of Care Code 79242 INT INP/OBS CARE 3/75MIN Diagnoses Acute respiratory failure with hypoxia J96.01 Multifocal pneumonia J18.9 Pleural effusion J90 Elevated troponin R79.89 CHF (congestive heart failure) I50.9 Acute kidney injury superimposed on chronic kidney disease N17.9; N18.9 Coronavirus infection B34.2
[2024-08-30] MEDS: methylPREDNISolone 125 MG/2 ML VIAL IV STA (01:54)
[2024-08-30] MEDS: PIPERACILLIN/TAZOBACTAM 4.5 GM/100 ML BAG IV STA (01:58)
--- NOTE | 2024-08-30 02:05 | XRay Report ---
EXAM: XR chest 1V portable CLINICAL HISTORY: tachypnea TECHNIQUE: An X-ray image of the chest is obtained in AP projection. COMPARISON: No prior studies are available for comparison. FINDINGS: Pulmonary Parenchyma: Background interstitial prominence bilaterally. increased airspace opacification bilaterally, more pronounced in the lower zones, suggestive of infective/inflammatory etiology. A well-defined opacity in the right lower zone along the heart border. Further evaluation with CT should be considered if clinically indicated. Blunting of bilateral costophrenic angles representing pleural effusions. Heart and Mediastinum: The heart size appears enlarged. No mediastinal widening or masses. No hilar or mediastinal lymphadenopathy. Bony Thorax: The bony thorax appears intact without fractures or deformities. Soft Tissues: Soft tissues overlying the chest wall are unremarkable. Overlying chest leads are seen. IMPRESSION: 1. Increased airspace opacification bilaterally, more pronounced/confluent in the lower zones, suggestive of infective/inflammatory etiology. 2. A well-defined opacity in the right lower zone along the heart border. Further evaluation with CT should be considered if clinically indicated. 3. Blunting of bilateral costophrenic angles, likely representing pleural effusions. Electronically signed by Bradly Falcon 08-30-2024 02:04 AM
[2024-08-30] MEDS: ALBUT/IPRATROP 3MG/0.5MG NEB 3 ML VIAL NEB PRN (02:12)
[2024-08-30] MEDS: LINEZOLID 600 MG/300 ML BAG IV SCH (02:33)
[2024-08-30 03:51] LABS: Appearance Urine Cloudy (Clear); Bacteria Urine Automated None Seen (None Seen); Bilirubin Urine Negative (Negative); Blood Urine 2+ (Negative); Color Urine Yellow; Epithelial Cell Urine Auto 0-2 /hpf (0-2); Glucose Urine UA Negative (Negative); Ketones Urine Negative (Negative); Leukocyte Esterase Urine 2+ (Negative); Nitrite Urine Negative (Negative); Protein Urine 2+ (Negative); RBC Urine Automated 0-2 /hpf (0-2); Specific Gravity Urine 1.018 (1.000-1.030); Urobilinogen Urine Negative (Negative); WBC Urine Automated >50 /hpf (0-5)
[2024-08-30] MEDS ORDERED: PHARMACY GLYCEMIC MGMT CONSULT PRN (04:41)
[2024-08-30] MEDS ORDERED: ACETAMINOPHEN 325 MG TAB PO PRN (04:46)
[2024-08-30] MEDS: INSULIN ASPART PER UNIT CHARGE SC ONE (05:52)
[2024-08-30] MEDS: LANTUS PER UNIT CHARGE SC ONE (05:52)
[2024-08-30] MEDS: TAMSULOSIN HCL 0.4 MG CAP PO SCH (08:19)
[2024-08-30] MEDS: CHOLECALCIFEROL 25 MCG (1000 UNITS) TAB PO SCH (08:19)
[2024-08-30] MEDS: guaiFENesin 600 MG TABCR PO SCH (08:19)
[2024-08-30] MEDS: methylPREDNISolone 40 MG in SYRINGE 0 ML IV SCH (08:20)
[2024-08-30] MEDS: FUROSEMIDE 40 MG/4 ML VIAL IV SCH (08:20)
[2024-08-30] MEDS: INSULIN ASPART PER UNIT CHARGE SC SCH (08:28)
[2024-08-30] MEDS: PIPERACILLIN/TAZOBACTAM 4.5 GM/100 ML BAG IV SCH (08:39)
[2024-08-30] MEDS ORDERED: methylPREDNISolone 10 mg/mL (For Ped Dose < 7mg) IV SCH (09:00)
--- NOTE | 2024-08-30 10:30 | Electrocardiogram Report ---
Test Reason : Blood Pressure : */* mmHG Vent. Rate : 91 BPM Atrial Rate : 91 BPM P-R Int : 194 ms QRS Dur : 118 ms QT Int : 366 ms P-R-T Axes : 36 74 160 degrees QTcB Int : 450 ms Normal sinus rhythm Anterior infarct , age undetermined Abnormal ECG When compared with ECG of 05-May-2024 07:50, Anterior infarct is now Present T wave inversion now evident in Lateral leads Confirmed by Star Pandya ([id number]) on 08/30/2024 10:29:55 AM Referred By: REFERRED SELF Confirmed By: Star Pandya
[2024-08-30] MEDS: LANTUS PER UNIT CHARGE SC SCH (20:46)
[2024-08-30] MEDS ORDERED: NON-FORMULARY MEDICATION (Insulin Glargine [Lantus Solostar U-100 Insulin] 100 unit/mL (3 SQ SCH (21:00)
[2024-08-31 06:12] LABS: Basophils # (auto) 0.01 K/uL (0.00-0.20); Basophils % (auto) 0.1 %; Eosinophils # (auto) 0.04 K/uL (0.00-0.50); Eosinophils % (auto) 0.4 %; Hematocrit (blood only) 33.6 % (42.0-52.0); Hemoglobin 10.4 g/dl (14.0-18.0); Immature Granulocytes # (auto) 0.05 K/uL (0.01-0.20); Immature Granulocytes % (auto) 0.5 %; Lymphocytes # (auto) 1.68 K/uL (1.20-3.40); Lymphocytes % (auto) 17.3 %; Mean Corpuscular Volume 90.6 fL (80.0-100.0); Mean Platelet Volume 11.7 fL (9.4-12.4); Monocytes # (auto) 0.87 K/uL (0.11-0.59); Neutrophils # (auto) 7.06 K/uL (1.40-6.50); Neutrophils % (auto) 72.7 %; Platelet Count 223 K/uL (130-400); RDW Coefficient of Variation 15.3 % (11.5-14.5); RDW Standard Deviation 50.7 fL (36.4-46.3); Red Blood Count 3.71 M/uL (4.70-6.10); White Blood Count 9.71 K/ul (4.8-10.8)
[2024-08-31 06:32] LABS: Albumin Globulin Ratio 1.1 (0.9-2); Albumin Level 3.4 gm/dl (3.4-5.0); BUN Creatinine Ratio 23.4 (10-20); Bilirubin,Total 0.6 mg/dl (0.2-1.0); Calcium 8.9 mg/dl (8.6-10.3); Creatinine Clr Calc Pharmacy 32.5 ml/min; Globulin 3.2 gm/dl (2.5-4.0); Magnesium 1.9 mg/dl (1.7-2.4); Potassium 4.9 mmol/L (3.5-5.1); Total Protein 6.6 gm/dl (6.0-8.3)
--- NOTE | 2024-08-31 09:01 | XRay Report ---
XR chest 1V portable HISTORY: 78 years-old Male hypoxia COMPARISON: 08/30/2024 TECHNIQUE: AP view the chest FINDINGS: Cardiac silhouette is enlarged. Pulmonary vascular congestion. Decreased amount of interstitial pulmo nary edema. Bibasilar consolidation redemonstrated is also slightly improved. Layering pleural effusi ons. Bones appear grossly intact. IMPRESSION: 1. Cardiomegaly with slight improvement of the pulmonary edema. 2. Layering pleural effusions with bibasilar consolidation redemonstrated. ACT 112: Negative or not required by law. The above report was generated using voice recognition software. It may contain grammatical, syntax o r spelling errors. Electronically signed by: Capo Zavaleta M.D. 08/31/2024 9:00 AM
[2024-08-31] MEDS: LANTUS PER UNIT CHARGE SC SCH (10:06)
[2024-08-31] MEDS: AZITHROMYCIN 250 MG TAB PO SCH (10:06)
--- NOTE | 2024-08-31 11:59 | Hospitalist Progress Note ---
Date of Service August 31, 2024 Assessment & Plan (1) Acute respiratory failure with hypoxia: (2) Multifocal pneumonia: (3) Pleural effusion: (4) Elevated troponin: (5) CHF (congestive heart failure): (6) Acute kidney injury superimposed on chronic kidney disease: (7) Coronavirus infection: Plan #Acute respiratory failure with hypoxia/OC 43 virus infection/CHF exacerbation/multifocal pneumonia with parapneumonic effusion- Linezolid 600 mg IV every 12 hours Zosyn 4.5 g IV every 8 hours Add azithromycin 500 mg p.o. daily x 3 DuoNebs every 2 hours as needed Mucinex 600 mg p.o. every 12 hours #CHF exacerbation/elevated troponin- BNP 2146 Given furosemide 40 mg IV in ED, and continue every morning TTE ordered Creatinine continues to increase however his fluid balance is net neutral Repeat chest x-ray today shows improving pulmonary edema but still appears consistent with a CHF exacerbation therefore will increase diuretics to Lasix 40 mg IV BID Alternative explanation will be urine retention and will get bladder scans for postvoid residual as this was a recent issue just earlier this month #T2DM- Pharmacy consulted for glycemic control #BioFire positive for OC 43- Treatment as above Droplet precautions #Chronic medical conditions: BPH with LUTS/bladder spasm-tamsulosin and oxybutynin CODE STATUS DNR/DNI Admission and Anticipated Discharge Date Admission Date: August 30, 2024 Subjective Reports some improvement in his breathing. On room air at baseline. Still significantly short of breath on exertion. Not yet received any physical therapy since admission. Review of Systems Review of Systems: All systems reviewed & are unremarkable except as noted in HPI & below Physical Exam Constitutional: WD/WN, vitals as above Respiratory: normal respiratory effort, lungs clear to auscultation Cardiovascular: Rate/Rhythm: regular rate and regular rhythm Heart Sounds: no murmur Extremities: + pedal edema (1+ pedal edema bilaterally equal) Gastrointestinal (Abdomen): normal bowel sounds, soft, nontender, no he patosplenomegaly Skin: no rashes, warm and dry Results & Data Results & Data Vital Signs (Past 12 Hours) Vital Signs Temp Pulse Pulse Resp BP Pulse Ox O2 Del Method 08/31/24 10:29 Nasal Cannula 08/31/24 07:16 36.5 C 87 19 140/83 96 Nasal Cannula 08/31/24 03:59 36.5 C 83 18 137/82 97 Nasal Cannula 08/31/24 00:00 78 O2 Flow Rate 08/31/24 10:29 2 08/31/24 07:16 3.0 08/31/24 03:59 3 08/31/24 00:00 PG Care Time/CCT Total # of Minutes Spent Total Time Spent with Patient: Total time spent is greater than 50% in coordination of care (as documented) at patient's floor/unit and/or counseling patient: Coding Level of Care Code 35786 SUB INP/OBS CARE 3/50MIN Diagnoses Acute respiratory failure with hypoxia J96.01 Multifocal pneumonia J18.9 Pleural effusion J90 Elevated troponin R79.89 CHF (congestive heart failure) I50.9 Acute kidney injury superimposed on chronic kidney disease N17.9; N18.9 Coronavirus infection B34.2
[2024-08-31] MEDS: HEPARIN SOD 5,000 UNIT/0.5 ML VIAL SQ SCH ×2 (12:23→20:50)
--- NOTE | 2024-08-31 13:02 | Pharmacy Report ---
Pharmacy Glycemic Short Note 2 - Date of Service August 31, 2024 - Glycemic Short BSG Results (Last 24 hours): 08/30/24 08/30/24 08/31/24 16:27 20:41 05:34 Glucose 97 POC Glucose 85 136 H 08/31/24 08/31/24 08/31/24 07:13 10:59 11:01 Glucose POC Glucose 95 59 L* 53 L* 08/31/24 11:26 Glucose POC Glucose 90 OUTPATIENT ANTIDIABETIC REGIMEN: * LANTUS 32 UNITS HS * A1c 9.9% 07/26/24 ASSESSMENT: * Patient admitted with pneumonia. Initially received 2 doses of solu-medrol and this has since been discontinued. BSGs initially elevated and then trended downward. * Received 23 units of basal yesterday with a fasting of 95 mg/dL today- reduced dose this morning ~35% to 15 units * Novolog initially started at weight based stress of 2, BSGs 106-85-136 mg/dL yesterday, kept same this morning but patient experienced hypoglycemia at lunch time today. Loosened parameters ~ home dose stress of 2 PLAN FOR INPATIENT GLYCEMIC CONTROL: * Hold outpatient oral diabetes medications * Basal insulin * Lantus 15 units x 1 this morning- reassess in AM * Bolus insulin * NovoLog per scale ACHS or Q6hrs while NPO * Goal Range: Low 120 mg/dL - High 160 mg/dL * Correction Factor: 40 mg/dL/unit * Nutritional / Prandial insulin per carb ratio of 1 unit per 15 grams CHO consumed
--- NOTE | 2024-08-31 15:37 | Electrocardiogram Report ---
Test Reason : Blood Pressure : */* mmHG Vent. Rate : 79 BPM Atrial Rate : 79 BPM P-R Int : 166 ms QRS Dur : 116 ms QT Int : 390 ms P-R-T Axes : 39 78 183 degrees QTcB Int : 447 ms Normal sinus rhythm Left ventricular hypertrophy with QRS widening and repolarization abnormality Abnormal ECG When compared with ECG of 29-Aug-2024 23:29, No significant change was found Confirmed by Star Pandya ([id number]) on 08/31/2024 3:37:23 PM Referred By: REFERRED SELF Confirmed By: Star Pandya
[2024-08-31 16:11] LABS: Creatinine Urine Random 41.2 mg/dl; Protein Creatinine Ratio Urine 0.5 (0-0.2); Total Protein Urine Random 21.9 mg/dl (0-11.9)
[2024-08-31] MEDS: FUROSEMIDE 40 MG/4 ML VIAL IV SCH (16:17)
[2024-09-01 08:04] LABS: Basophils # (auto) 0.07 K/uL (0.00-0.20); Basophils % (auto) 0.8 %; Eosinophils # (auto) 0.44 K/uL (0.00-0.50); Eosinophils % (auto) 5.1 %; Hematocrit (blood only) 35.1 % (42.0-52.0); Hemoglobin 11.2 g/dl (14.0-18.0); Immature Granulocytes # (auto) 0.02 K/uL (0.01-0.20); Immature Granulocytes % (auto) 0.2 %; Lymphocytes # (auto) 2.21 K/uL (1.20-3.40); Lymphocytes % (auto) 25.5 %; Mean Corpuscular Hemoglobin 28.5 pg (25.0-34.0); Mean Corpuscular Hgb Conc 31.9 g/dL (32.0-36.0); Mean Corpuscular Volume 89.3 fL (80.0-100.0); Mean Platelet Volume 11.7 fL (9.4-12.4); Monocytes # (auto) 0.72 K/uL (0.11-0.59); Monocytes % (auto) 8.3 %; Neutrophils # (auto) 5.22 K/uL (1.40-6.50); Neutrophils % (auto) 60.1 %; Platelet Count 234 K/uL (130-400); RDW Coefficient of Variation 15.1 % (11.5-14.5); RDW Standard Deviation 49.9 fL (36.4-46.3); Red Blood Count 3.93 M/uL (4.70-6.10); White Blood Count 8.68 K/ul (4.8-10.8)
[2024-09-01 08:18] LABS: Albumin Level 3.4 gm/dl (3.4-5.0); BUN Creatinine Ratio 22.7 (10-20); Bilirubin,Total 0.7 mg/dl (0.2-1.0); Calcium 8.7 mg/dl (8.6-10.3); Creatinine Clr Calc Pharmacy 26.8 ml/min; Globulin 3.4 gm/dl (2.5-4.0); Magnesium 1.7 mg/dl (1.7-2.4); Potassium 4.7 mmol/L (3.5-5.1); Total Protein 6.8 gm/dl (6.0-8.3)
[2024-09-01] MEDS: LANTUS PER UNIT CHARGE SC SCH (09:11)
[2024-09-01] MEDS: LACTATED RINGER'S 1,000 ML IV SCH (09:49)
--- NOTE | 2024-09-01 10:39 | Hospitalist Progress Note ---
Date of Service September 01, 2024 Assessment & Plan (1) Acute respiratory failure with hypoxia: (2) Multifocal pneumonia: (3) Pleural effusion: (4) Elevated troponin: (5) CHF (congestive heart failure): (6) Acute kidney injury superimposed on chronic kidney disease: (7) Coronavirus infection: (8) Atrial fibrillation with rapid ventricular response: (9) DANIEL (acute kidney injury): Plan #Acute respiratory failure with hypoxia Initially suspected to be due to heart failure and multifocal pneumonia with oxygenation, CXR findings and patient clinically has improved however Lasix has led to DANIEL therefore questioning HF diagnosis Multifocal pneumonia diagnosis also questionable given normal white blood count and procalcitonin. Possible more of aspiration although no good history of this and not currently aspirating. Treatment as below Aim O2 sats > 90% #Multifocal pneumonia Given questioning of CHF diagnosis we will finish course of IV antibiotics Zosyn day 3 Azithromycin day 2 Discontinue linezolid given absence of WBC and procalcitonin Could consider CT chest but since he is improving and prior CT A/P in Jul showed clear lung bases I do not suspect he has underlying cancer #Acute heart failure with reduced ejection fraction Significant evidence for this with BNP 2146, chest x-ray and clinical exam consistent with this diagnosis However creatinine continues to increase with net negative fluid balance and Lasix therefore questioning the validity of this diagnosis. Patient is not in urine retention with postvoid bladder scan 25 mL Diuresis appears to be just causing intravascular depletion and DANIEL therefore suspect this diagnosis is incorrect. Will stop Lasix and give 1L LR with repeat BMP later today. #DANIEL Renal ultrasound to rule out obstructive uropathy Protein/creatinine ratio 0.5 If this is normal suspect he is just intravascularly dry with Lasix use and will give LR 1L @ 80ml/hr Consult nephrology if renal ultrasound negative #Paroxysmal atrial fibrillation 1 episode lasting for 30 minutes 09/01. In the setting of infection/DANIEL we will hold off anticoagulation. #Cardiomyopathy Echocardiogram performed on Saturday although report not available until today as did not crossover to the [facility] but it is in the paper chart. LVEF 35% with moderate global hypokinesis. Start metoprolol succinate 25 mg p.o. QAM Consult cardiology #Hx abnormal urine culture Previous MRSA in urine noted which ideally should have been followed up with blood culture which was taken today however this was after multiple days of linezolid I do not feel he needs to remain on linezolid for this previous urine culture which is most likely contaminant #T2DM- Pharmacy consulted for glycemic control #BioFire positive for OC 43- Treatment as above Droplet precautions #Chronic medical conditions: BPH with LUTS/bladder spasm-tamsulosin and oxybutynin CODE STATUS DNR/DNI VTE prophylaxis - heparin 5000 units SQ BID Diet - heart failure, type 2 diabetes Disposition - continue admission on PCU while DANILE getting worse Admission and Anticipated Discharge Date Admission Date: August 30, 2024 Subjective Patient had episode of atrial fibrillation from 6:15-6:42 AM no prior history of atrial fibrillation. Patient feels he is improving gradually. Now on room air. No change in urine, no difficulty with passing urine. Physical Exam Constitutional: WD/WN, vitals as above Respiratory: normal respiratory effort, lungs clear to auscultation Cardiovascular: Rate/Rhythm: regular rate and regular rhythm Heart Sounds: no murmur Extremities: + pedal edema (1+ pedal edema bilaterally equal) Gastrointestinal (Abdomen): normal bowel sounds, soft, nontender, no hepatosplenomegaly Skin: no rashes, warm and dry Results & Data Results & Data Vital Signs (Past 12 Hours) Vital Signs Temp Pulse Pulse Resp BP Pulse Ox O2 Del Method 09/01/24 07:15 36.7 C 87 18 113/62 92 Room Air 09/01/24 06:40 36.5 C 115 H 20 113/77 94 Room Air 09/01/24 02:54 36.5 C 76 18 129/72 92 Room Air 08/31/24 23:48 93 Room Air 08/31/24 23:03 37.1 C 80 18 156/81 H 95 Nasal Cannula 08/31/24 23:01 74 PG Care Time/CCT Total # of Minutes Spent Total Time Spent with Patient: Total time spent is greater than 50% in coordination of care (as documented) at patient's floor/unit and/or counseling patient: Coding Level of Care Code 11241 SUB INP/OBS CARE 3/50MIN Diagnoses Acute respiratory failure with hypoxia J96.01 Multifocal pneumonia J18.9 Pleural effusion J90 Elevated troponin R79.89 CHF (congestive heart failure) I50.9 Acute kidney injury superimposed on chronic kidney disease N17.9; N18.9 Coronavirus infection B34.2 Atrial fibrillation with rapid ventricular response I48.91 DANIEL (acute kidney injury) N17.9
[2024-09-01] MEDS: METOPROLOL SUCC 25MG EXT REL TAB PO SCH (10:53)
--- NOTE | 2024-09-01 14:13 | Ultrasound Report ---
RENAL ULTRASOUND HISTORY: DANIEL COMPARISON: 04/04/2017 FINDINGS: Right kidney measures 12 x 5 cm. Left kidney measures 8 x 4 cm. There is no hydronephrosis bilaterally. No renal calculi seen. There is Doppler flow to both kidneys. There is mild atrophy of t he left kidney. Urinary bladder is empty and not well evaluated. IMPRESSION: No hydronephrosis. Otherwise as described. ACT 112: Negative or not required by law. Electronically signed by: Everett Dela Cruz M.D. 09/01/2024 2:11 PM
--- NOTE | 2024-09-01 16:01 | Electrocardiogram Report ---
Test Reason : Blood Pressure : */* mmHG Vent. Rate : 77 BPM Atrial Rate : 77 BPM P-R Int : 180 ms QRS Dur : 114 ms QT Int : 408 ms P-R-T Axes : 52 82 178 degrees QTcB Int : 461 ms Normal sinus rhythm Incomplete left bundle block Left ventricular hypertrophy with repolarization abnormality Abnormal ECG When compared with ECG of 31-Aug-2024 04:08, No significant change was found Confirmed by Star Pandya ([id number]) on 09/01/2024 4:01:36 PM Referred By: REFERRED SELF Confirmed By: Star Pandya
[2024-09-01 18:57] LABS: Calcium 8.6 mg/dl (8.6-10.3)
--- NOTE | 2024-09-01 19:00 | Nephrology Consultation ---
Date of Consultation September 01, 2024 Assessment & Plan (1) DANIEL (acute kidney injury): Non-oliguric. Electrolytes normal. Volume status acceptable. No emergent indication for dialysis. Urine microscopy notable for WBCs and hyaline casts. Renal US without obstruction. Clinical presentation suggestive of ATN versus AIN. Rate of progression/onset is very rapid for AIN associated with current antibiotics. I discussed with Dr. Aggarwal. Zosyn is being held. Diuretics have also been held and LR provided to encourage slightly positive fluid balance today. Presentation suggestive of diuretic associated change in EAV. Document strict I/O's. Repeat a metabolic profile tomorrow AM. Medications are appropriate for kidney function. (2) Chronic kidney disease, stage III (moderate): CKD III-IV A3. CKD attributed to DKD. Chronically atrophic left kidney. Follows with Dr. Mccormack as outpatient. Baseline creatinine 1.4-2.0 mg/dL. (3) CHF (congestive heart failure): Volume status acceptable. Diuretics held. Document strict I/O's. Hold losartan. History of Present Illness Reason for Consultation: DANIEL Requesting Physician: Malachi Aggarwal MD Attending Physician: Malachi Aggarwal MD History of Present Illness Mr. Fady Noyola is an 78-year-old male with CKD III-IV A3. Baseline creatinine 1.4-2.0 mg/dL. PCR 0.5. Fady [place] [facility] [place]. Mccormack. His last clinic visit was in June. He has a known chronically atrophic left kidney. CKD is attributed to DKD. Medical history is notable for diabetes mellitus, hypertension, BPH, OAB, anemia of chronic disease, and B12 deficiency. Fady was hospitalized at [facility] from 07/25- 07/27/2024 for a urinary tract infection treated with doxycycline + levofloxacin. Urine culture grew MRSA and Enterococcus faecalis. Fady presented to [facility] on August 30 via EMS for evaluation of progressive generalized weakness and shortness of breath. BioFire positive for OC 43 virus. Chest x-ray demonstrating possible right sided infiltrate with bilateral pleural effusion. Creatinine was 1.96 mg/dL on presentation and has trended upward to 2.9 mg/dL. Furosemide has been provided to encourage a negative fluid balance. IV antibiotic therapy is being provided with Linezolid + Zosyn --> azithromycin + Zosyn. Methylprednisolone is also being provided. TTE demonstrating moderate global hypokinesis of the LV with mild cLVH, LVEF 35%. Losartan has been held. Fady was resting comfortably in bed this evening. He believes that the change in his kidney function is due to diuretics. He reports feeling slightly dehydrated. He otherwise feels well. He denies any dyspnea. Allergies Allergy/AdvReac Type Severity Reaction Status Date / Time No Known Allergies Allergy Verified 08/30/24 00:17 Home Medications Medication Instructions Recorded Confirmed Type cetirizine 10 mg capsule (Zyrtec) 10 mg PO DAILY PRN allergy symptoms 04/15/19 08/30/24 History cholecalciferol (vitamin D3) 50 2,000 units PO DAILY 04/15/19 08/30/24 History mcg (2,000 unit) capsule blood-glucose meter (OneTouch #1 ea 04/20/24 08/30/24 Rx Verio Flex Meter) lancets 30 gauge (OneTouch Delica #100 ea 04/20/24 08/30/24 Rx Plus Lancet) acetaminophen 650 mg 1,300 mg PO Q12H PRN Pain 05/14/24 08/30/24 History tablet,extended release tamsulosin 0.4 mg capsule (Flomax) 0.4 mg PO QAM #90 caps 05/19/24 08/30/24 Rx losartan 50 mg tablet 50 mg PO DAILY #90 tabs 06/15/24 08/30/24 Rx pen needle,diabetic, disp unit 32 #100 ea 07/31/24 08/30/24 Rx gauge x 5/32", remover and disposal unit blood sugar diagnostic (OneTouch #100 ea 08/25/24 08/30/24 Rx Verio test strips) insulin glargine 100 unit/mL (3 32 unit subcut HS 08/25/24 08/30/24 History mL) subcutaneous pen (Lantus Solostar U-100 Insulin) oxybutynin chloride 5 mg tablet 5 mg PO UD PRN Bladder Spasms 08/30/24 08/30/24 History Patient History Medical History (Updated 09/01/24 @ 19:00 by Malachi Aggarwal MD) Multifocal pneumonia Constipation Acute kidney injury superimposed on chronic kidney disease BPH w urinary obs/LUTS History of UTI 04/10/24 hospitalization - treated Liver lesion noticed on imaging - no other further direction was given as per patient 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 BPH (benign prostatic hyperplasia) Mott catheter in place last changed 05/05/24 Urinary retention Uncontrolled type 2 diabetes mellitus with hyperglycemia, without long-term current use of insulin - IDDM - as of 05/14/24- stopped taking insulin 4 days ago - no longer using latasha system - monitors glucose with onetouch - Hgb A1C >16.9 during 04/2024 admission Hypertension Dyslipidemia Chronic kidney disease, stage III (moderate) Dr Mccormack Surgical History Hx of tonsillectomy Hx of tooth extraction Status post orchiopexy Hx of right cataract extraction Family History Other Adopted Social History Smoking Status: Never smoker Tobacco Type: Cigarettes Age Started Using Tobacco: 13; Age Quit Using Tobacco: 53; packs per day: 1; Second Hand Exposure: No; Do You Dip or Chew Tobacco: No; Tobacco Cessation Education Requested by Patient: No Hx Alcohol Use: No Hx Substance Use: No Preferred Language: Khmer Communication Ability: Effective Head Of Operation And [employer]istics Required: No Beliefs That Will Affect Care: None marital status: Current Living Situation: Spouse current occupational status: employed 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 Other Information That Helps Us Care for You: No Feels Safe at Home: Yes Safety Concerns: Feels Safe At This Time Childhood Exposure to Second-Hand Smoke: Yes Diet: diabetic Dental Care, Regularly: No Physical Activity Frequency: Does not Exercise Seatbelt Use: sometimes Sunscreen Use: No Assistive Devices: Cane and Walker Review of Systems Review of Systems: All systems reviewed & are unremarkable except as noted in HPI & below Physical Exam Constitutional: well developed; no acute distress Eyes: + anicteric sclerae ENMT: Mouth: no oral mucosal abnormality and oral mucous membranes not dry Neck: normal visual inspection and trachea midline Respiratory: normal respiratory effort Auscultation: lungs clear to auscultation bilaterally Cardiovascular: Rate/Rhythm: regular rate and regular rhythm Heart Sounds: normal S1 and normal S2 Extremities: + pedal edema Musculoskeletal: Extremities: no cyanosis and no clubbing Skin: normal turgor; no lesions Neurologic: Motor/Sensory: no tremor and no asterixis Psychiatric: Orientation: alert and oriented x 3 Results & Data Vital Signs (Past 12 Hours) Vital Signs Temp Pulse Resp BP Pulse Ox Pulse Ox Pulse Ox 09/01/24 15:39 36.7 C 86 18 116/60 96 09/01/24 14:49 09/01/24 13:19 93 90 09/01/24 11:07 36.8 C 79 18 130/71 95 09/01/24 07:15 36.7 C 87 18 113/62 92 O2 Del Method O2 Flow Rate O2 Flow Rate 09/01/24 15:39 Room Air 09/01/24 14:49 Room Air 09/01/24 13:19 0 0 09/01/24 11:07 Room Air 09/01/24 07:15 Room Air Laboratory Results Laboratory Results - last 24 hr 08/31/24 09/01/24 09/01/24 20:17 07:13 07:22 WBC 8.68 RBC 3.93 L Hgb 11.2 L Hct 35.1 L MCV 89.3 MCH 28.5 MCHC 31.9 L RDW Std Deviation 49.9 H RDW Coeff of Hollis 15.1 H Plt Count 234 MPV 11.7 Immature Gran % (Auto) 0.2 Neut % (Auto) 60.1 Lymph % (Auto) 25.5 Benson % (Auto) 8.3 Eos % (Auto) 5.1 Baso % (Auto) 0.8 Neut # (Auto) 5.22 Lymph # (Auto) 2.21 Benson # (Auto) 0.72 H Eos # (Auto) 0.44 Baso # (Auto) 0.07 Immature Gran # (Auto) 0.02 Sodium 142 Potassium 4.7 Chloride 109 H Carbon Dioxide 27 Anion Gap 6 BUN 61 H Creatinine 2.69 H D Est Cr Clr Drug Dosing 26.8 eGFR 23.21 BUN/Creatinine Ratio 22.7 H Glucose 84 POC Glucose 85 84 Calcium 8.7 Magnesium 1.7 Total Bilirubin 0.7 AST 19 ALT 22 Alkaline Phosphatase 63 B-Natriuretic Peptide 1951 H Total Protein 6.8 Albumin 3.4 Globulin 3.4 Albumin/Globulin Ratio 1.0 Procalcitonin 0.18 09/01/24 09/01/24 09/01/24 11:05 16:20 18:24 WBC RBC Hgb Hct MCV MCH MCHC RDW Std Deviation RDW Coeff of Hollis Plt Count MPV Immature Gran % (Auto) Neut % (Auto) Lymph % (Auto) Benson % (Auto) Eos % (Auto) Baso % (Auto) Neut # (Auto) Lymph # (Auto) Benson # (Auto) Eos # (Auto) Baso # (Auto) Immature Gran # (Auto) Sodium 139 Potassium 5.0 Chloride 108 H Carbon Dioxide 23 Anion Gap 8 BUN 64 H Creatinine 2.92 H Est Cr Clr Drug Dosing 24.7 eGFR 21.03 BUN/Creatinine Ratio 21.9 H Glucose 178 H POC Glucose 125 H 172 H Calcium 8.6 Magnesium Total Bilirubin AST ALT Alkaline Phosphatase B-Natriuretic Peptide Total Protein Albumin Globulin Albumin/Globulin Ratio Procalcitonin Diagnostic Findings RENAL ULTRASOUND HISTORY: DANIEL COMPARISON: 04/04/2017 FINDINGS: Right kidney measures 12 x 5 cm. Left kidney measures 8 x 4 cm. There is no hydronephrosis bilaterally. No renal calculi seen. There is Doppler flow to both kidneys. There is mild atrophy of the left kidney. Urinary bladder is empty and not well evaluated. IMPRESSION: No hydronephrosis. Otherwise as described. PG Care Time/CCT Total # of Minutes Spent Total Time Spent with Patient: Total time spent is greater than 50% in coordination of care (as documented) at patient's floor/unit and/or counseling patient: Coding Level of Care Code 24375 IN/OBS CONSULT LVL 4,60M Diagnoses DANIEL (acute kidney injury) N17.9 Chronic kidney disease, stage III (moderate) N18.3 CHF (congestive heart failure) I50.9
[2024-09-01 19:03] LABS: BUN Creatinine Ratio 21.9 (10-20); Creatinine Clr Calc Pharmacy 24.7 ml/min
[2024-09-02 07:04] LABS: BUN Creatinine Ratio 23.9 (10-20); Calcium 8.1 mg/dl (8.6-10.3); Creatinine Clr Calc Pharmacy 28.3 ml/min; Magnesium 1.6 mg/dl (1.7-2.4); Potassium 4.7 mmol/L (3.5-5.1)
[2024-09-02] MEDS: LANTUS PER UNIT CHARGE SC SCH (08:43)
[2024-09-02] MEDS: MAGNESIUM SULFATE / D5W 1 GM/100 ML BAG IV ONE (08:44)
--- NOTE | 2024-09-02 10:52 | Cardiology Consultation ---
Date of Consultation September 02, 2024 Assessment & Plan (1) HFrEF (heart failure with reduced ejection fraction): (2) Elevated troponin: (3) Cardiomyopathy: (4) Atrial tachycardia: (5) Dyslipidemia: (6) Hypertension: (7) Acute respiratory failure with hypoxia: Plan ASSESSMENT/PLAN: 1. Heart failure with reduced EF: He may be mildly hypervolemic but with diuresis, renal function rapidly worsened. His breathing is much better however and if fluid balance that is charted is correct, he is actually net positive. He has lost approximately 5 pounds since presentation. Would consider gentle diuresis, possibly starting tomorrow, if okay from nephrology standpoint. Metoprolol succinate has been initiated since presentation. Increase metoprolol succinate to 50 mg tomorrow. Was on losartan 50 mg on presentation but held due to renal issues. Would recommend, when okay from a renal standpoint, low-dose Entresto in its place. If renal function allows, SGLT2 inhibitor and hopefully mineralocorticoid receptor antagonist in the future. We discussed the importan ce of low-sodium diet, less than 2000 mg daily. Daily weights. Strict I's and O's while hospitalized. Heart failure program on discharge. 2. Cardiomyopathy: Etiology unclear. Recommend GDMT as above, if renal function allows. Given acute on chronic renal insufficiency, coronary angiography is not planned at this time. May consider myocardial perfusion study. If no significant improvement with appropriate therapy, consider ICD for primary prevention after 3 months of optimal therapy. Further secondary workup can be performed in the outpatient setting. 3. Acute respiratory failure with hypoxia: Much improved and normal oxygen saturation on room air today. He feels near back to baseline. Heart failure management as above. He is being treated for pneumonia as per primary hospita list service. 4. CKD: As per nephrology. 5. Elevated troponin: Likely due to demand ischemia in the setting of his respiratory issues as described. Considering myocardial perfusion study, possibly as an outpatient, as above. No angina. He did not present with acute coronary syndrome. 6. Hypertension: Blood pressure has been mostly normotensive. Plan as above. 7. Dyslipidemia: Recommend high intensity statin therapy if no contraindication. Start atorvastatin 40 mg daily. 8. Possible atrial tachycardia: Based on telemetry findings. No definite atrial fibrillation or atrial flutter. Now on beta-alonzo, which can be further titrated. Seem to be asymptomatic. 9. Disposition: Cardiology will continue to follow. Patient care has been communicated with primary hospitalist, Dr. Mullins. As per patient request, I contacted his , Sonya, via telephone and updated her from a cardiology perspective. Highly complex medical issues. Thank you for allowing me to participate in the care of your patient. Please call for any other questions or concerns. Sincerely, Sukhjinder Mayen M.D. History of Present Illness Reason for Consultation: "Cardiomyopathy, ? HF" Requesting Physician: Dr. Aggarwal Attending Physician: Eliseo Mullins MD History of Present Illness Mr. Noyola is an 78-year-old gentleman with a history significant for cardiomyopathy, type 2 diabetes, CKD, hypertension, and dyslipidemia. He was hospitalized on 08/29/2024 with acute respiratory failure with hypoxia and diagnosed with multifocal pneumonia, heart failure, and acute kidney injury superimposed on CKD. He also was diagnosed with coronavirus infection. On presentation, his creatinine was 1.96, within his baseline. He was given intravenous diuretics in the form of furosemide 40 mg. His renal function worsened and diuretics were held and he was given LR to encourage slightly positive fluid balance. He has been followed by nephrology. He reports that he had orthopnea, cough, and worsening shortness of breath in general on presentation. He had worsening edema couple of weeks prior to presentation but the shortness of breath was present for several weeks. He f eels much better now since being hospitalized. He denies chest pain, syncope, near syncope, palpitations, melena, hematochezia, or hematuria. Review of systems: As above. Family history: Adopted. Social history: He quit smoking in his 50s. Denies alcohol or drug abuse. He is and lives at home with his . He has 4 children. 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 He was unaccompanied. Allergies Allergy/AdvReac Type Severity Reaction Status Date / Time No Known Allergies Allergy Verified 08/30/24 00:17 Home Medications Medication Instructions Recorded Confirmed Type cetirizine 10 mg capsule (Zyrtec) 10 mg PO DAILY PRN allergy symptoms 04/15/19 08/30/24 History cholecalciferol (vitamin D3) 50 2,000 units PO DAILY 04/15/19 08/30/24 History mcg (2,000 unit) capsule blood-glucose meter (OneTouch #1 ea 04/20/24 08/30/24 Rx Verio Flex Meter) lancets 30 gauge (OneTouch Delica #100 ea 04/20/24 08/30/24 Rx Plus Lancet) acetaminophen 650 mg 1,300 mg PO Q12H PRN Pain 05/14/24 08/30/24 History tablet,extended release tamsulosin 0.4 mg capsule (Flomax) 0.4 mg PO QAM #90 caps 05/19/24 08/30/24 Rx losartan 50 mg tablet 50 mg PO DAILY #90 tabs 06/15/24 08/30/24 Rx pen needle,diabetic, disp unit 32 #100 ea 07/31/24 08/30/24 Rx gauge x 32", remover and disposal unit blood sugar diagnostic (OneTouch #100 ea 08/25/24 08/30/24 Rx Verio test strips) insulin glargine 100 unit/mL (3 32 unit subcut HS 08/25/24 08/30/24 History mL) subcutaneous pen (Lantus Solostar U-100 Insulin) oxybutynin chloride 5 mg tablet 5 mg PO UD PRN Bladder Spasms 08/30/24 08/30/24 History Problem List (Updated 09/02/24 @ 17:42 by Chuck Mayen MD) Atrial tachycardia Cardiomyopathy HFrEF (heart failure with reduced ejection fraction) DANIEL (acute kidney injury) Anemia (Acute) Coronavirus infection CHF (congestive heart failure) (Acute) Elevated troponin (Acute) Acute respiratory failure with hypoxia (Acute) Pleural effusion Dyspnea (Acute) Hyperglycemia due to type 2 diabetes mellitus Acute urinary retention (Acute) Anemia of chronic disease Proteinuria Vitamin D deficiency DM type 2 causing CKD stage 3 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 Vitamin B12 deficiency Right shoulder pain (Acute) Cataract, bilateral (Acute) Adjustment disorder (Acute) Patient History Medical History Multifocal pneumonia Constipation Acute kidney injury superimposed on chronic kidney disease BPH w urinary obs/LUTS History of UTI 04/10/24 hospitalization - treated Liver lesion noticed on imaging - no other further direction was given as per patient 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 BPH (benign prostatic hyperplasia) Mott catheter in place last changed 05/05/24 Urinary retention Uncontrolled type 2 diabetes mellitus with hyperglycemia, without long-term current use of insulin - IDDM - as of 05/14/24- stopped taking insulin 4 days ago - no longer using latasha system - monitors glucose with onetouch - Hgb A1C >16.9 during 04/2024 admission Hypertension Dyslipidemia Chronic kidney disease, stage III (moderate) Dr Mccormack Surgical History Hx of tonsillectomy Hx of tooth extraction Status post orchiopexy Hx of right cataract extraction Family History Other Adopted Social History Smoking Status: Never smoker Tobacco Type: Cigarettes Age Started Using Tobacco: 13; Age Quit Using Tobacco: 53; packs per day: 1; Second Hand Exposure: No; Do You Dip or Chew Tobacco: No; Hx Alcohol Use: No Hx Substance Use: No Preferred Language: [place] Communication Ability: Effective 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 Alert and oriented. HEENT: Anicteric sclera. Neck: No appreciable JVD. No bruits. Normal carotid upstrokes bilaterally. Cardiac: Regular. Normal S1-S2. No murmurs, rubs, or gallops. Pulmonary: Decreased breath sounds bilaterally, but otherwise clear to auscultation bilaterally without wheezes, rales, or rhonchi. Abdomen: Soft, nontender, nondistended, with normoactive bowel sounds. No bruits noted. Extremities: 1+ right radial pulse. 2+ left radial pulse. 1+ dorsalis pedis pulses bilaterally. 1+ bilateral lower extremity edema. No cyanosis. Results & Data Vital Signs (Past 12 Hours) Vital Signs Temp Pulse Pulse Resp BP Pulse Ox O2 Del Method 09/02/24 07:20 77 17 131/61 94 Room Air 09/02/24 02:52 36.6 C 75 18 131/68 93 Room Air 09/01/24 23:50 76 09/01/24 22:36 36.8 C 82 18 147/80 H 93 Room Air Intake & Output 08/31/24 09/01/24 09/02/24 09/03/24 06:59 06:59 06:59 06:59 Intake Total 1530 / 1530 1100 / 1100 1950 / 1950 100 / 100 Output Total 1475 / 1475 1800 / 1800 302 / 302 Balance 55 / 55 -700 / -700 1648 / 1648 100 / 100 Weight 220 lb 5 oz 220 lb 7.396 oz 220 lb 14.451 oz Laboratory Results Laboratory Results - last 24 hr 09/01/24 09/01/24 09/01/24 11:05 16:20 18:24 Sodium 139 Potassium 5.0 Chloride 108 H Carbon Dioxide 23 Anion Gap 8 BUN 64 H Creatinine 2.92 H Est Cr Clr Drug Dosing 24.7 eGFR 21.03 BUN/Creatinine Ratio 21.9 H Glucose 178 H POC Glucose 125 H 172 H Calcium 8.6 Magnesium 09/01/24 09/02/24 09/02/24 20:21 05:28 07:04 Sodium 142 Potassium 4.7 Chloride 109 H Carbon Dioxide 25 Anion Gap 8 BUN 61 H Creatinine 2.55 H D Est Cr Clr Drug Dosing 28.3 eGFR 24.74 BUN/Creatinine Ratio 23.9 H Glucose 124 H POC Glucose 147 H 137 H Calcium 8.1 L Magnesium 1.6 L Diagnostic Findings History and physical report reviewed. ECGs personally reviewed: ECG 8 08/29/2024 2329: Sinus rhythm 91 bpm. Poor R wave progression. Inferolateral ST/T wave abnormality. ECG 08/31/2024 at 4:08 AM: NSR [address]/T wave abnormality. ECG 09/01/2024 at 5 AM: NSR [address]/T wave abnormality. LVH. Labs reviewed and notable for mild but stable anemia, normal TSH, normal transaminase levels, mild hypomagnesemia, elevated A1c, abnormal renal function (above baseline), elevated BNP, normal potassium. Echo report reviewed from 08/30/2024: Images personally reviewed. EF 30-35%. Global hypokinesis. Mild mitral regurgitation. Nephrology consultation report reviewed. Renal ultrasound 09/01/2024: No hydronephrosis. Chest x-ray 08/31/2024: Improved interstitial pulmonary edema per radiology. Bibasilar consolidation, slightly improved. Pleural effusions. Medications Administered Current Inpatient Medications Acetaminophen (Acetaminophen 325 Mg Tab) 650 mg PO Q6H PRN PRN Reason: Pain or Fever Stop: 09/29/24 04:45 Albuterol (Albut/Ipratrop 3mg/0.5mg Neb 3 Ml Vial) 3 ml NEB Q2H PRN; Protocol PRN Reason: dyspnea Stop: 09/29/24 01:27 Last Admin: 08/30/24 02:12 Dose: 3 ml Guaifenesin (Guaifenesin 600 Mg Tabcr) 600 mg PO Q12 [facility] Stop: 09/29/24 08:59 Last Admin: 09/02/24 08:47 Dose: 600 mg Heparin Sodium (Porcine) (Heparin Sod 5,000 Unit/0.5 Ml Vial) 5,000 units SQ BID ZAIN Stop: 09/30/24 20:59 Last Admin: 09/02/24 08:44 Dose: 5,000 units Insulin Aspart (Insulin Aspart Per Unit Charge) 0 units SC ACHS ZAIN Stop: 09/29/24 07:29 Last Admin: 09/02/24 08:43 Dose: 2 units Insulin Glargine (Lantus Per Unit Charge) 10 units SC QAM [facility] Stop: 09/30/24 08:59 Last Admin: 09/02/24 08:43 Dose: 10 units Metoprolol Succinate (Metoprolol Succ 25mg Ext Rel Tab) 25 mg PO QAM [facility] Stop: 10/01/24 10:24 Last Admin: 09/02/24 08:46 Dose: 25 mg Miscellaneous Information (Pharmacy Glycemic Mgmt Consult) 1 each N/A UD PRN; Protocol PRN Reason: Consult Stop: 09/29/24 04:40 Tamsulosin HCl (Tamsulosin Hcl 0.4 Mg Cap) 0.4 mg PO QAM [facility] Stop: 09/29/24 08:59 Last Admin: 09/02/24 08:47 Dose: 0.4 mg Vitamin D (Cholecalciferol 25 Mcg (1000 Units) Tab) 50 mcg PO DAILY [facility] Stop: 09/29/24 08:59 Last Admin: 09/02/24 08:47 Dose: 50 mcg PG Care Time/CCT Total # of Minutes Spent Total Time Spent with Patient: Total time spent is greater than 50% in coordination of care (as documented) at patient's floor/unit and/or counseling patient: Coding Level of Care Code 11817 INT INP/OBS CARE 3/75MIN Diagnoses HFrEF (heart failure with reduced ejection fraction) I50.20 Elevated troponin R79.89 Cardiomyopathy I42.9 Atrial tachycardia I47.19 Dyslipidemia E78.5 Hypertension I10 Acute respiratory failure with hypoxia J96.01
--- NOTE | 2024-09-02 15:39 | Hospitalist Progress Note ---
Date of Service September 02, 2024 Assessment & Plan (1) Acute respiratory failure with hypoxia: Plan: Acute respiratory failure with hypoxia Due to viral pneumonia, [place] OC 43 positive Initially on linezolid/Zosyn. Antibiotics discontinued for concerns of AIN d ue to increase in renal dysfunction despite appearing euvolemic Continue methylprednisolone, weaned to daily Antibiotics discontinued, follow fever curve and white count. No leukocytosis today DANIEL on CKD Baseline creatinine around 1.41.8 Creatinine peaked at 2.92, downtrending today 2.55 Initially suspected to have ATN versus AIN, rapid onset somewhat inconsistent with antibiotic induced AIN. Nephrology following. Peaked and beginning to downtrend today. Remains above baseline. Renal US without evidence of obstruction. Did continue to worsen follow 1 L of IVF, and then subsequently improved. hold diuretics, hold losartan, continue to trend Does have bilateral pitting edema and JVD with HJR to the angle of the clavicle, clinically is volume up Suspect that he was a commendation of volume up but Sick with coronavirus and temporarily intravascular depleted and did not tolerate initial Lasix dosing well. Will trial repeat of Lasix at 20-40 mg IV morning of 09/03 if renal function is stable, could dose increased to target net output of around 1 L negative per day if stable Atrial tachycardia versus atrial fibrillation Baseline EKG incomplete left bundle branch block, sinus Cussed with cardiology new onset, 30-minute episode on 09/01 @ [id number]. Sudden onset/offset and mostly ?irregular without consistent WI however when rate slows temporarily at around 0640 does appear to have P waves with consistent WI suspicious for atrial tachycardia. [id number] 4 (age, CHF, DM2). Will defer anticoagulation at this time and follow as may have been atrial tachycardia rather than true A-fib and monitor. If he does have recurrence please obtain stat EKG to document and would need to be anticoagulated at that time and would meet criteria for Eliquis dose reduction. CHF - TTE EF 35% global hypokinesis Initial chest x-ray with? Viral process versus pulmonary edema with layering effusions. Suspected to have CHF however did have DANIEL as noted,? Antibiotic and due to fluid versus intravascular depletion and subsequent worsening following 1 L NSS and then with peak and downtrend 09/02 No hypoxia. Lungs diminished but without overt rales. BNP was elevated on admission and bilateral lower extremity edema is present. JVD with HJR to the angle of the mandible - baseline weight ~92-94kg. Bedweight ~100kg -Cardiology following. SGLT2/ARNI held pending improvement in renal function. Will need further ischemic evaluation and likely nuclear study however fortunately remains chest pain-free and is that signs of ACS at this time. Is volume up, if renal function is stable and improved then we will plan to start diuresis with Lasix 20 mg daily starting 09/03 Type II DM Pharmacy ischemic control, goal [id number], basal bolus SSI with glucose checks A C/at bedtime DVT prophylaxis: Heparin subcu Diet: Heart healthy, type II DM Disposition: PCU CODE STATUS: DNR/DNI Update given to patient's by phone 09/02 (2) Multifocal pneumonia: (3) Pleural effusion: (4) Elevated troponin: (5) CHF (congestive heart failure): (6) Acute kidney injury superimposed on chronic kidney disease: (7) Coronavirus infection: (8) Atrial fibrillation with rapid ventricular response: (9) DANIEL (acute kidney injury): Admission and Anticipated Discharge Date Admission Date: August 30, 2024 Subjective Fabian is doing well today. He reports that he felt okay overnight. He reports that he did notice that he had a great deal of difficulty laying flat before coming into the hospital and would have to sit up and watch TV due to shortness of breath. He thinks that that seems to have improved a little bit. Is not sure if his legs are more swollen than normal or not. Denies chest pain today. Denies palpitations. Denies fever chills or sweats. Would like his called and given an update otherwise no questions or concerns Physical Exam Physical Exam: General: A&Ox3. NAD. Cooperative. HEENT: Atraumatic, normocephalic. Vision and hearing grossly intact Pulm: CTAB A&P. Bibasilar crackles but no overt rales.. Symmetrical chest rise. No increased work of breathing. No respiratory distress. On room air Cardiac: RRR, -mrg. Radial pulses intact and symmetrical. JVD above the clavicle with HJR to the angle of the mandible is present Extremities: Bilateral lower extremity pitting edema to the knees 2+ Results & Data Results & Data Vital Signs (Past 12 Hours) Vital Signs Temp Pulse Resp BP Pulse Ox O2 Del Method 09/02/24 10:58 75 19 140/72 93 Room Air 09/02/24 07:20 77 17 131/61 94 Room Air 09/02/24 02:52 36.6 C 75 18 131/68 93 Room Air PG Care Time/CCT Total # of Minutes Spent Total Time Spent with Patient: Total time spent is greater than 50% in coordination of care (as documented) at patient's floor/unit and/or counseling patient: Coding Level of Care Code 54581 SUB INP/OBS CARE 3/50MIN Diagnoses Acute respiratory failure with hypoxia J96.01 Multifocal pneumonia J18.9 Pleural effusion J90 Elevated troponin R79.89 CHF (congestive heart failure) I50.9 Acute kidney injury superimposed on chronic kidney disease N17.9; N18.9 Coronavirus infection B34.2 Atrial fibrillation with rapid ventricular response I48.91 DANIEL (acute kidney injury) N17.9
--- NOTE | 2024-09-02 17:29 | Nephrology Progress Note ---
Date of Service September 02, 2024 Assessment & Plan (1) DANIEL (acute kidney injury): Plan: Non-oliguric. Electrolytes normal. Volume status acceptable. No emergent indication for dialysis. Urine microscopy notable for WBCs and hyaline casts. Renal US without obstruction. Clinical presentation suggestive of hemodynamically mediated DANIEL + ATN in the setting of infection. Less likely to be AIN. Rate of progression/onset is very rapid for AIN. I discussed with Dr. Mullins today. Presentation suggestive of diuretic associated change in EAV. Creatinine is downtrending. Diuretics have been held. Goal is to maintain a relatively even fluid balance. Document strict I/O's. Repeat a metabolic profile tomorrow AM. Medications are appropriate for kidney function. (2) Chronic kidney disease, stage III (moderate): Plan: CKD III-IV A3. CKD attributed to DKD. Chronically atrophic left kidney. Follows with Dr. Mccormack as outpatient. Baseline creatinine 1.4-2.0 mg/dL. (3) CHF (congestive heart failure): Plan: Volume status acceptable. Diuretics held. Document strict I/O's. Hold losartan. Admission and Anticipated Discharge Date Admission Date: August 30, 2024 Subjective No acute events overnight. No fevers or chills. Breathing comfortably at rest. Some mild orthopnea persists. No chest pains or palpitations. No urinary complaints. Review of Systems Review of Systems: All systems reviewed & are unremarkable except as noted in HPI & below Physical Exam Constitutional: well developed; no acute distress Eyes: + anicteric sclerae ENMT: Mouth: no oral mucosal abnormality and oral mucous membranes not dry Neck: normal visual inspection and trachea midline Respiratory: normal respiratory effort Auscultation: lungs clear to auscultation bilaterally and + rales (faint) Cardiovascular: Rate/Rhythm: regular rate and regular rhythm Heart Sounds: normal S1 and normal S2 Extremities: + pedal edema Musculoskeletal: Extremities: no cyanosis and no clubbing Skin: normal turgor; no lesions Neurologic: Motor/Sensory: no tremor and no asterixis Psychiatric: Orientation: alert and oriented x 3 Results & Data Vital Signs (Past 12 Hours) Vital Signs Pulse Resp BP Pulse Ox O2 Del Method 09/02/24 14:38 76 17 139/73 94 Room Air 09/02/24 10:58 75 19 140/72 93 Room Air 09/02/24 07:20 77 17 131/61 94 Room Air Laboratory Results Laboratory Results - last 24 hr 09/01/24 09/01/24 09/02/24 18:24 20:21 05:28 Sodium 139 142 Potassium 5.0 4.7 Chloride 108 H 109 H Carbon Dioxide 23 25 Anion Gap 8 8 BUN 64 H 61 H Creatinine 2.92 H 2.55 H D Est Cr Clr Drug Dosing 24.7 28.3 eGFR 21.03 24.74 BUN/Creatinine Ratio 21.9 H 23.9 H Glucose 178 H 124 H POC Glucose 147 H Calcium 8.6 8.1 L Magnesium 1.6 L 09/02/24 09/02/24 09/02/24 07:04 10:56 16:04 Sodium Potassium Chloride Carbon Dioxide Anion Gap BUN Creatinine Est Cr Clr Drug Dosing eGFR BUN/Creatinine Ratio Glucose POC Glucose 137 H 196 H 140 H Calcium Magnesium PG Care Time/CCT Total # of Minutes Spent Total Time Spent with Patient: Total time spent is greater than 50% in coordination of care (as documented) at patient's floor/unit and/or counseling patient: Coding Level of Care Code 46028 SUB INP/OBS CARE 3/50MIN Diagnoses DANIEL (acute kidney injury) N17.9 Chronic kidney disease, stage III (moderate) N18.3 CHF (congestive heart failure) I50.9
[2024-09-02] MEDS: ATORVASTATIN 40 MG TAB PO SCH (20:55)
[2024-09-03 06:34] LABS: Red Blood Count 3.88 M/uL (4.70-6.10); White Blood Count 6.77 K/ul (4.8-10.8)
[2024-09-03 06:35] LABS: Basophils # (auto) 0.05 K/uL (0.00-0.20); Basophils % (auto) 0.7 %; Eosinophils # (auto) 0.42 K/uL (0.00-0.50); Eosinophils % (auto) 6.2 %; Hematocrit (blood only) 34.3 % (42.0-52.0); Hemoglobin 10.9 g/dl (14.0-18.0); Immature Granulocytes # (auto) 0.02 K/uL (0.01-0.20); Immature Granulocytes % (auto) 0.3 %; Lymphocytes # (auto) 2.15 K/uL (1.20-3.40); Lymphocytes % (auto) 31.8 %; Mean Corpuscular Hemoglobin 28.1 pg (25.0-34.0); Mean Corpuscular Hgb Conc 31.8 g/dL (32.0-36.0); Mean Corpuscular Volume 88.4 fL (80.0-100.0); Mean Platelet Volume 11.9 fL (9.4-12.4); Monocytes # (auto) 0.59 K/uL (0.11-0.59); Monocytes % (auto) 8.7 %; Neutrophils # (auto) 3.54 K/uL (1.40-6.50); Neutrophils % (auto) 52.3 %; Platelet Count 208 K/uL (130-400); RDW Standard Deviation 47.7 fL (36.4-46.3)
[2024-09-03 07:08] LABS: BUN Creatinine Ratio 26.7 (10-20); Calcium 8.5 mg/dl (8.6-10.3); Creatinine Clr Calc Pharmacy 34.3 ml/min; Magnesium 1.8 mg/dl (1.7-2.4); Potassium 4.6 mmol/L (3.5-5.1)
[2024-09-03] MEDS: FUROSEMIDE INJ 20 MG/2 ML VIAL IV SCH (08:21)
[2024-09-03] MEDS: METOPROLOL SUCC 50MG EXT REL TAB PO SCH (08:23)
--- NOTE | 2024-09-03 09:45 | Nephrology Progress Note ---
Date of Service September 03, 2024 Assessment & Plan (1) DANIEL (acute kidney injury): Plan: Non-oliguric. Creatinine continues to downtrend. Kidney function is near baseline. Clinical presentation suggestive of hemodynamically mediated DANIEL in the setting of infection + diuretics. Significantly less likely AIN (rate of progression/onset too rapid). Goal is to maintain an even to slightly negative fluid balance. Document strict I/O's. Medications are appropriate for kidney function. (2) Chronic kidney disease, stage III (moderate): Plan: CKD III-IV A3. CKD attributed to DKD. Chronically atrophic left kidney. Follows with Dr. Mccormack as outpatient. Baseline creatinine 1.4-2.0 mg/dL. (3) CHF (congestive heart failure): Plan: Volume status acceptable. Diuretics have been held. Low dose furosemide may be provided as needed to encourage slightly negative fluid balance (consider 20 mg PO daily). Document strict I/O's. Continue to hold losartan. Admission and Anticipated Discharge Date Admission Date: August 30, 2024 Subjective No acute events overnight. Fady states that he feels much better this AM. He is breathing comfortably. He slept well last night. No chest pain or palpitations. He denies significant fluid retention or edema. He reports increased urine output. Fady is concerned about his who is struggling with dyspnea and cough at home. Their granddaughter is with her now and planning to take her to be evaluated. Review of Systems Review of Systems: All systems reviewed & are unremarkable except as noted in HPI & below Physical Exam Constitutional: well developed; no acute distress Eyes: + anicteric sclerae ENMT: Mouth: no oral mucosal abnormality and oral mucous membranes not dry Neck: normal visual inspection and trachea midline Respiratory: normal respiratory effort Auscultation: lungs clear to auscultation bilaterally Cardiovascular: Rate/Rhythm: regular rate and regular rhythm Heart Sounds: normal S1 and normal S2 Vessels: + JVD Extremities: + edema Musculoskeletal: Extremities: no cyanosis and no clubbing Skin: normal turgor; no lesions Neurologic: Motor/Sensory: no tremor and no asterixis Psychiatric: Orientation: alert and oriented x 3 Results & Data Vital Signs (Past 12 Hours) Vital Signs Temp Pulse Pulse Resp BP Pulse Ox O2 Del Method 09/03/24 07:39 36.5 C 75 18 161/82 H 93 Room Air 09/03/24 03:00 36.7 C 79 18 132/61 95 Room Air 09/02/24 23:01 36.8 C 83 18 141/67 H 93 Room Air 09/02/24 22:46 72 Laboratory Results Laboratory Results - last 24 hr 09/02/24 09/02/24 09/02/24 10:56 16:04 19:34 WBC RBC Hgb Hct MCV MCH MCHC RDW Std Deviation RDW Coeff of Hollis Plt Count MPV Immature Gran % (Auto) Neut % (Auto) Lymph % (Auto) [place] % (Auto) Eos % (Auto) Baso % (Auto) Neut # (Auto) Lymph # (Auto) [place] # (Auto) Eos # (Auto) Baso # (Auto) Immature Gran # (Auto) Sodium Potassium Chloride Carbon Dioxide Anion Gap BUN Creatinine Est Cr Clr Drug Dosing eGFR BUN/Creatinine Ratio Glucose POC Glucose 196 H 140 H 162 H Calcium Magnesium 09/03/24 09/03/24 05:28 07:08 WBC 6.77 RBC 3.88 L Hgb 10.9 L Hct 34.3 L MCV 88.4 MCH 28.1 MCHC 31.8 L RDW Std Deviation 47.7 H RDW Coeff of Hollis 15.0 H Plt Count 208 MPV 11.9 Immature Gran % (Auto) 0.3 Neut % (Auto) 52.3 Lymph % (Auto) 31.8 [place] % (Auto) 8.7 Eos % (Auto) 6.2 Baso % (Auto) 0.7 Neut # (Auto) 3.54 Lymph # (Auto) 2.15 [place] # (Auto) 0.59 Eos # (Auto) 0.42 Baso # (Auto) 0.05 Immature Gran # (Auto) 0.02 Sodium 141 Potassium 4.6 Chloride 109 H Carbon Dioxide 27 Anion Gap 5 BUN 56 H Creatinine 2.10 H D Est Cr Clr Drug Dosing 34.3 eGFR 31.23 BUN/Creatinine Ratio 26.7 H Glucose 142 H POC Glucose 144 H Calcium 8.5 L Magnesium 1.8 PG Care Time/CCT Total # of Minutes Spent Total Time Spent with Patient: Total time spent is greater than 50% in coordination of care (as documented) at patient's floor/unit and/or counseling patient: Coding Level of Care Code 64657 SUB INP/OBS CARE 3/50MIN Diagnoses DANIEL (acute kidney injury) N17.9 Chronic kidney disease, stage III (moderate) N18.3 CHF (congestive heart failure) I50.9
--- NOTE | 2024-09-03 10:52 | Cardiology Progress Note ---
Date of Service September 03, 2024 Assessment & Plan (1) HFrEF (heart failure with reduced ejection fraction): (2) Elevated troponin: (3) Cardiomyopathy: (4) Atrial tachycardia: (5) Dyslipidemia: (6) Hypertension: (7) Acute respiratory failure with hypoxia: Plan ASSESSMENT/PLAN: 1. Heart failure with reduced EF: He may be mildly hypervolemic but with diuresis, renal function rapidly worsened. His breathing is much better however if fluid balance that is charted is correct, he is actually net positive. He has lost approximately 5 pounds since presentation. Agree with gentle diuresis today with close monitoring of his renal function. Metoprolol succinate has be en initiated since presentation. Increased metoprolol succinate to 50 mg on 09/03/2024. Was on losartan 50 mg on presentation but held due to renal issues. Would recommend, when okay from a renal standpoint, low-dose Entresto in its place. If renal function allows, SGLT2 inhibitor and hopefully mineralocorticoid receptor antagonist in the future. We discussed the importance of low-sodium diet, less than 2000 mg daily. Daily weights. Strict I's and O's while hospitalized. Heart failure program on discharge. 2. Cardiomyopathy: Etiology unclear. Recommend GDMT as above, if renal functio n allows. Given acute on chronic renal insufficiency, coronary angiography is not planned at this time. May consider myocardial perfusion study. If no significant improvement with appropriate therapy, consider ICD for primary prevention after 3 months of optimal therapy. Further secondary workup can be performed in the outpatient setting. 3. Acute respiratory failure with hypoxia: Much improved and normal oxygen saturation on room air. He feels near back to baseline. Heart failure management as above. He is being treated for pneumonia as per primary hospitalist service. 4. CKD: As per nephrology. Renal function improving. 5. Elevated troponin: Likely due to demand ischemia in the setting of his respiratory issues as described. Considering myocardial perfusion study, possibly as an outpatient, as above. No angina. He did not present with acute coronary syndrome. 6. Hypertension: Blood pressure has been mostly normotensive but today hypertensive. Diuretic has been initiated and metoprolol succinate increased. 7. Dyslipidemia: Recommend high intensity statin therapy if no contraindication. Started atorvastatin 40 mg daily. 8. Possible atrial tachycardia: Based on telemetry findings earlier this hospital stay. No definite atrial fibrillation or atrial flutter. Now on beta- alonzo, which can be further titrated. Seem to be asymptomatic. 9. Disposition: Cardiology will continue to follow. Patient care has been communicated with primary hospitalist, Dr. Mullins. Message sent to nephrology to discuss ARNI, SGLT2 inhibitor, mineralocorticoid receptor antagonist. Anticipate possible Entresto tomorrow if okay with nephrology given that loop diuretic was reinitiated today, to ensure stable renal function. Admission and Anticipated Discharge Date Admission Date: August 30, 2024 Subjective Patient was seen this morning. He denies orthopnea and was able to lay flat last night. He denies shortness of breath, chest pain, syncope, near syncope, palpitations. He believes his edema has improved. He was unaccompanied. Physical Exam Physical Exam: Gen.: No acute distress. Alert and oriented. HEENT: Anicteric sclera. Neck: No appreciable JVD. Cardiac: Regular. Normal S1-S2. No murmurs, rubs, or gallops. Pulmonary: Decreased breath sounds bilaterally, but otherwise clear to auscultation bilaterally without wheezes, rales, or rhonchi. Abdomen: Soft, nontender, nondistended, with normoactive bowel sounds. No bruits noted. Extremities: 1+ right radial pulse. 2+ left radial pulse. 1+ dorsalis pedis pulses bilaterally. 1+ bilateral lower extremity edema. No cyanosis. Results & Data Vital Signs (Past 12 Hours) Vital Signs Temp Pulse Pulse Resp BP Pulse Ox O2 Del Method 09/03/24 10:11 Room Air 09/03/24 07:52 68 09/03/24 07:39 36.5 C 75 18 161/82 H 93 Room Air 09/03/24 03:00 36.7 C 79 18 132/61 95 Room Air 09/02/24 23:01 36.8 C 83 18 141/67 H 93 Room Air Intake & Output 09/01/24 09/02/24 09/03/24 09/04/24 06:59 06:59 06:59 06:59 Intake Total 1100 / 1100 1950 / 1950 540 / 540 Output Total 1800 / 1800 302 / 302 Balance -700 / -700 1648 / 1648 540 / 540 Weight 220 lb 7.396 oz 220 lb 14.451 oz 220 lb 7.396 oz Laboratory Results Laboratory Results - last 24 hr 09/02/24 09/02/24 09/02/24 10:56 16:04 19:34 WBC RBC Hgb Hct MCV MCH MCHC RDW Std Deviation RDW Coeff of Hollis Plt Count MPV Immature Gran % (Auto) Neut % (Auto) Lymph % (Auto) [place] % (Auto) Eos % (Auto) Baso % (Auto) Neut # (Auto) Lymph # (Auto) [place] # (Auto) Eos # (Auto) Baso # (Auto) Immature Gran # (Auto) Sodium Potassium Chloride Carbon Dioxide Anion Gap BUN Creatinine Est Cr Clr Drug Dosing eGFR BUN/Creatinine Ratio Glucose POC Glucose 196 H 140 H 162 H Calcium Magnesium 09/03/24 09/03/24 05:28 07:08 WBC 6.77 RBC 3.88 L Hgb 10.9 L Hct 34.3 L MCV 88.4 MCH 28.1 MCHC 31.8 L RDW Std Deviation 47.7 H RDW Coeff of Hollis 15.0 H Plt Count 208 MPV 11.9 Immature Gran % (Auto) 0.3 Neut % (Auto) 52.3 Lymph % (Auto) 31.8 [place] % (Auto) 8.7 Eos % (Auto) 6.2 Baso % (Auto) 0.7 Neut # (Auto) 3.54 Lymph # (Auto) 2.15 [place] # (Auto) 0.59 Eos # (Auto) 0.42 Baso # (Auto) 0.05 Immature Gran # (Auto) 0.02 Sodium 141 Potassium 4.6 Chloride 109 H Carbon Dioxide 27 Anion Gap 5 BUN 56 H Creatinine 2.10 H D Est Cr Clr Drug Dosing 34.3 eGFR 31.23 BUN/Creatinine Ratio 26.7 H Glucose 142 H POC Glucose 144 H Calcium 8.5 L Magnesium 1.8 Diagnostic Findings Telemetry personally reviewed: Sinus rhythm. Nephrology note reviewed. Labs reviewed from 09/03/2024 and notable for improved renal function, normal potassium, stable anemia. Medications Administered Current Inpatient Medications Acetaminophen (Acetaminophen 325 Mg Tab) 650 mg PO Q6H PRN PRN Reason: Pain or Fever Stop: 09/29/24 04:45 Albuterol (Albut/Ipratrop 3mg/0.5mg Neb 3 Ml Vial) 3 ml NEB Q2H PRN; Protocol PRN Reason: dyspnea Stop: 09/29/24 01:27 Last Admin: 08/30/24 02:12 Dose: 3 ml Atorvastatin Calcium (Atorvastatin 40 Mg Tab) 40 mg PO HS [facility] Stop: 10/02/24 20:59 Last Admin: 09/02/24 20:55 Dose: 40 mg Furosemide (Furosemide Inj 20 Mg/2 Ml Vial) 20 mg IV [id number] [facility] Stop: 10/03/24 08:59 Last Admin: 09/03/24 08:21 Dose: 20 mg Guaifenesin (Guaifenesin 600 Mg Tabcr) 600 mg PO Q12 [facility] Stop: 09/29/24 08:59 Last Admin: 09/03/24 08:22 Dose: 600 mg Heparin Sodium (Porcine) (Heparin Sod 5,000 Unit/0.5 Ml Vial) 5,000 units SQ BID [facility] Stop: 09/30/24 20:59 Last Admin: 09/03/24 08:22 Dose: 5,000 units Insulin Aspart (Insulin Aspart Per Unit Charge) 0 units SC ACHS [facility] Stop: 09/29/24 07:29 Last Admin: 09/03/24 08:20 Dose: 4 units Insulin Glargine (Lantus Per Unit Charge) 10 units SC QAM [facility] Stop: 09/30/24 08:59 Last Admin: 09/03/24 08:22 Dose: 10 units Metoprolol Succinate (Metoprolol Succ 50mg Ext Rel Tab) 50 mg PO QAM [facility] Stop: 10/03/24 08:59 Last Admin: 09/03/24 08:23 Dose: 50 mg Miscellaneous Information (Pharmacy Glycemic Mgmt Consult) 1 each N/A UD PRN; Protocol PRN Reason: Consult Stop: 09/29/24 04:40 Tamsulosin HCl (Tamsulosin Hcl 0.4 Mg Cap) 0.4 mg PO QAM [facility] Stop: 09/29/24 08:59 Last Admin: 09/03/24 08:23 Dose: 0.4 mg Vitamin D (Cholecalciferol 25 Mcg (1000 Units) Tab) 50 mcg PO DAILY [facility] Stop: 09/29/24 08:59 Last Admin: 09/03/24 08:21 Dose: 50 mcg PG Care Time/CCT Total # of Minutes Spent Total Time Spent with Patient: Total time spent is greater than 50% in coordination of care (as documented) at patient's floor/unit and/or counseling patient: Coding Level of Care Code 65483 SUB INP/OBS CARE MIN Diagnoses HFrEF (heart failure with reduced ejection fraction) I50.20 Elevated troponin R79.89 Cardiomyopathy I42.9 Atrial tachycardia I47.19 Dyslipidemia E78.5 Hypertension I10 Acute respiratory failure with hypoxia J96.01
--- NOTE | 2024-09-03 11:26 | Hospitalist Progress Note ---
Date of Service September 03, 2024 Assessment & Plan (1) Acute respiratory failure with hypoxia: Plan: Acute respiratory failure with hypoxia Due to viral pneumonia, [place] OC 43 positive Initially on linezolid/Zosyn. Antibiotics discontinued for concerns of AIN due to increase in renal dysfunction despite appearing euvolemic Continue methylprednisolone, weaned to daily Antibiotics discontinued - Remains afebrile and without leukocytosis DANIEL on CKD Baseline creatinine around 1.41.8 Creatinine peaked at 2.92 Downtrending and 2.10 on 09/03 Initially suspected to have ATN versus AIN, rapid onset inconsistent with antibiotic induced AIN. Nephrology following. Renal US without evidence of obstruction. Did continue to worsen follow 1 L of IVF, and then subsequently improved. Suspect that he was a combination of with volume positive but with coronavirus and temporarily intravascular depleted and did not tolerate initial Lasix dosing well Creatinine rapidly improving 09/03. Mild volume overload with net fluid positive on admission, will trial Lasix 20 mg IV daily and follow creatinine. On reassessment JVD is improved and leg swelling is improving BMP daily Atrial tachycardia versus atrial fibrillation Baseline EKG incomplete left bundle branch block, sinus Discussed with cardiology new onset, 30-minute episode of tachycardia on 09/01 @ [id number]. Sudden onset/offset and mostly ?irregular without consistent UT however when rate slows temporarily at around 0640 does appear to have P waves with consistent UT suspicious for atrial tachycardia. [id number] 4 (age, CHF, DM2). Will defer anticoagulation at this time and follow as may have been atrial tachycardia rather than true A-fib and monitor. If he does have recurrence please obtain stat EKG to document and would need to be anticoagulated at that time and would meet criteria for Eliquis dose reduction. Appreciate cardiology review/recommendation CHF - TTE EF 35% global hypokinesis Initial chest x-ray with? Viral process versus pulmonary edema with layering effusions. Suspected to have CHF however did have DANIEL as noted,? Antibiotic and due to fluid versus intravascular depletion and subsequent worsening following 1 L NSS and then with peak and downtrend 09/02 No hypoxia. Lungs diminished but without overt rales. JVD has improved, lower extremity is improving but not resolved - baseline weight ~92-94kg. Bedweight ~100kg. Recommend obtaining standing weight moving forward -Cardiology following. SGLT2/ARNI held pending improvement in renal function. Will need further ischemic evaluation and likely nuclear study however fortunately remains chest pain-free and is that signs of ACS at this time. GDMT including Entresto/MRA/SGLT2i pending creatinine stability Metoprolol uptitrated Type II DM Pharmacy ischemic control, goal [id number], basal bolus SSI with glucose checks AC/at bedtime DVT prophylaxis: Heparin subcu Diet: Heart healthy, type II DM Disposition: PCU CODE STATUS: DNR/DNI (2) Multifocal pneumonia: (3) Pleural effusion: (4) Elevated troponin: (5) CHF (congestive heart failure): (6) Acute kidney injury superimposed on chronic kidney disease: (7) Coronavirus infection: (8) Atrial fibrillation with rapid ventricular response: (9) DANIEL (acute kidney injury): Admission and Anticipated Discharge Date Admission Date: August 30, 2024 Subjective Fabian is seen at the bedside this morning. He reports he actually feels much better than previous. Has been peeing without difficulty, and denies shortness of breath, orthopnea, chest pain, syncope, presyncope today. Physical Exam Physical Exam: General: A&Ox3. NAD. Cooperative. HEENT: Atraumatic, normocephalic. Vision and hearing grossly intact Pulm: CTAB A&P. Symmetrical chest rise. No increased work of breathing. No respiratory distress. On room air Cardiac: RRR, -mrg. Radial pulses intact and symmetrical. Slight JVD present 09/02 appears improved Extremities: 12+ bilateral lower extremity edema, improved from prior Results & Data Results & Data Vital Signs (Past 12 Hours) Vital Signs Temp Pulse Pulse Resp BP BP Pulse Ox 09/03/24 10:52 36.7 C 69 18 161/83 H 95 09/03/24 10:11 09/03/24 07:52 68 09/03/24 07:39 36.5 C 75 18 161/82 H 93 09/03/24 03:00 36.7 C 79 18 132/61 95 O2 Del Method 09/03/24 10:52 Room Air 09/03/24 10:11 Room Air 09/03/24 07:52 09/03/24 07:39 Room Air 09/03/24 03:00 Room Air PG Care Time/CCT Total # of Minutes Spent Total Time Spent with Patient: Total time spent is greater than 50% in coordination of care (as documented) at patient's floor/unit and/or counseling patient: Coding Level of Care Code 15982 SUB INP/OBS CARE 350MIN Diagnoses Acute respiratory failure with hypoxia J96.01 Multifocal pneumonia J18.9 Pleural effusion J90 Elevated troponin R79.89 CHF (congestive heart failure) I50.9 Acute kidney injury superimposed on chronic kidney disease N17.9; N18.9 Coronavirus infection B34.2 Atrial fibrillation with rapid ventricular response I48.91 DANIEL (acute kidney injury) N17.9
--- NOTE | 2024-09-04 08:04 | Hospitalist Progress Note ---
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 #Acute respiratory failure with hypoxia Due to viral pneumonia, [place] OC 43 positive Initially on linezolid/Zosyn. Antibiotics discontinued for concerns of AIN due to increase in renal dysfunction despite appearing euvolemic s/p methylprednisolone Antibiotics discontinued - Remains afebrile and without leukocytosis #DANIEL on CKD III Baseline creatinine around 1.41.8 Creatinine peaked at 2.92 Downtrending and 1.73 on 09/04 Initially suspected to have ATN versus AIN, rapid onset inconsistent with antibiotic induced AIN. Nephrology following. Renal US without evidence of obstruction. Did continue to worsen follow 1 L of IVF, and then subsequently improved. Suspect that he was a combination of volume positive but with coronavirus and temporarily intravascular depleted and did not tolerate initial Lasix dosing well Creatinine rapidly improving 09/03. Mild volume overload with net fluid positive on admission, will trial Lasix 20 mg IV daily and follow creatinine. On reassessment JVD is improved and leg swelling is improving BMP daily Atrial tachycardia versus atrial fibrillation Baseline EKG incomplete left bundle branch block, sinus Discussed with cardiology new onset, 30-minute episode of tachycardia on 09/01 @ [id number]. Sudden onset/offset and mostly ?irregular without consistent LA however when rate slows temporarily at around 0640 does appear to have P waves with consistent LA suspicious for atrial tachycardia. [id number] 4 (age, CHF, DM2). Will defer anticoagulation at this time and follow as may have been atrial tachycardia rather than true A-fib and monitor. If he does have recurrence please obtain stat EKG to document and would need to be anticoagulated at that time and would meet criteria for Eliquis dose reduction. Appreciate cardiology review/recommendation Acute on Chronic systolic heart failure - TTE EF 35% global hypokinesis Initial chest x-ray with? Viral process versus pulmonary edema with layering effusions. Suspected to have CHF however did have DANIEL as noted,? Antibiotic and due to fluid versus intravascular depletion and subsequent worsening following 1 L NSS and then with peak and downtrend 09/02 No hypoxia. Lungs diminished but without overt rales. JVD has improved, lower extremity is improving but not resolved - baseline weight ~92-94kg. Bedweight ~100kg. Recommend obtaining standing weight moving forward - Cardiology following. SGLT2/ARNI held pending improvement in renal function. Will need further ischemic evaluation and likely nuclear study however fortunately remains chest pain-free and is that signs of ACS at this time. GDMT including Entresto/MRA/SGLT2i pending creatinine stability- started on low dose Entresto Metoprolol uptitrated Type II DM Pharmacy ischemic control, goal [id number], basal bolus SSI with glucose checks AC/at bedtime DVT prophylaxis: Heparin subcu Diet: Heart healthy, type II DM Disposition: pt refusing PT / OT eval at this time , cards cleared for d/c , will work w/ CM to ascertain safe d/c CODE STATUS: DNR/DNI Admission and Anticipated Discharge Date Admission Date: August 30, 2024 Subjective No acute events overnight Currently no new complaints He did state that he does not want to go to rehab near here due to distance and then he stated he doesn't want to go to rehab near his home because he could just be at home. Review of Systems Review of Systems: Comprehensive ROS neg Physical Exam Physical Exam: Gen: no acute distress, resting in bed comfortably HEENT: NC/AT, anicteric, MMM Lungs: diminished breath sounds CVS: [id number] , RRR Abd: soft, NT, nl bowel sounds Ext: no edema Results & Data Results & Data Vital Signs (Past 12 Hours) Vital Signs Temp Pulse Pulse Resp BP Pulse Ox O2 Del Method 09/04/24 07:20 71 09/04/24 07:03 74 18 155/72 H 94 Room Air 09/04/24 02:56 36.7 C 73 18 139/65 94 Room Air 09/03/24 23:37 75 09/03/24 23:09 36.5 C 73 18 159/86 H 94 Room Air 09/03/24 22:27 Room Air PG Care Time/CCT Total # of Minutes Spent Total Time Spent with Patient: Total time spent is greater than 50% in coordination of care (as documented) at patient's floor/unit and/or counseling patient: Coding Level of Care Code 97856 SUB INP/OBS CARE 2/35MIN Diagnoses Acute respiratory failure with hypoxia J96.01 Multifocal pneumonia J18.9 Pleural effusion J90 Elevated troponin R79.89 CHF (congestive heart failure) I50.9 Acute kidney injury superimposed on chronic kidney disease N17.9; N18.9 Coronavirus infection B34.2 DANIEL (acute kidney injury) N17.9
--- NOTE | 2024-09-04 08:40 | Cardiology Progress Note ---
Date of Service September 04, 2024 Assessment & Plan (1) HFrEF (heart failure with reduced ejection fraction): (2) Elevated troponin: (3) Cardiomyopathy: (4) Atrial tachycardia: (5) Dyslipidemia: (6) Hypertension: (7) Acute respiratory failure with hypoxia: Plan ASSESSMENT/PLAN: 1. Heart failure with reduced EF: He may be mildly hypervolemic but with initial diuresis, renal function rapidly worsened. Fluid balance has been incorrect with urine output not collected consistently. Recommend strict I's and O's. Metoprolol succinate has been initiated since presentation. Increased metoprolol succinate to 50 mg on 09/03/2024. Was on losartan 50 mg on presentation but held due to renal issues. Low-dose Entresto today. If renal function allows, SGLT2 inhibitor and hopefully mineralocorticoid receptor antagonist in the future. These medications were not started at this time due to acute worsening of renal function during this hospital stay. Start Lasix 40 mg p.o. daily tomorrow. We discussed the importance of low-sodium diet, less than 2000 mg daily. Daily weights. Heart failure program on discharge. 2. Cardiomyopathy: Etiology unclear. Recommend GDMT as above, if renal function allows. Given acute on chronic renal insufficiency, coronary angio graphy is not planned at this time. May consider myocardial perfusion study. If no significant improvement with appropriate therapy, consider ICD for primary prevention after 3 months of optimal therapy. Further secondary workup can be performed in the outpatient setting. 3. Acute respiratory failure with hypoxia: Much improved and normal oxygen saturation on room air. He feels near back to baseline. Heart failure management as above. He is being treated for pneumonia as per primary hospitalist service. 4. CKD: As per nephrology. Renal function improving. 5. Elevated troponin: Likely due to demand ischemia in the setting of his respiratory issues as described. Considering myocardial perfusion study, possibly as an outpatient, as above. No angina. He did not present with acute coronary syndrome. 6. Hypertension: Blood pressure has been mostly normotensive but today hypertensive. Diuretic has been initiated and metoprolol succinate increased. Starting Entresto today. 7. Dyslipidemia: Recommend high intensity statin therapy if no contraindication. Started atorvastatin 40 mg daily. 8. Possible atrial tachycardia: Based on telemetry findings earlier this hospital stay. No definite atrial fibrillation or atrial flutter. Now on beta- alonzo, which can be further titrated. Seem to be asymptomatic. 9. Disposition: I will be away from the hospital as of this evening. Please call the on-call lead presser with any further questions or concerns. Outpatient follow-up has been arranged, including heart failure program. Patient care communicated with Dr. Scanlon, of the primary hospitalist service. Admission and Anticipated Discharge Date Admission Date: August 30, 2024 Subjective He was seen this morning. He denies shortness of breath, chest pain, syncope, near syncope, orthopnea. He believes his lower extremity edema has improved. He was unaccompanied. Physical Exam Physical Exam: Gen.: No acute distress. Alert and oriented. HEENT: Anicteric sclera. Neck: No appreciable JVD. Hepatojugular reflux noted. Cardiac: Regular. Normal S1-S2. No murmurs, rubs, or gallops. Pulmonary: Decreased breath sounds bilaterally, but otherwise clear to auscultation bilaterally without wheezes, rales, or rhonchi. Abdomen: Soft, nontender, nondistended, with normoactive bowel sounds. No bruits noted. Extremities: 1+ right radial pulse. 2+ left radial pulse. 1+ dorsalis pedis pulses bilaterally. 1+ bilateral lower extremity edema. No cyanosis. Results & Data Vital Signs (Past 12 Hours) Vital Signs Temp Pulse Pulse Resp BP Pulse Ox O2 Del Method 09/04/24 08:00 Room Air 09/04/24 07:20 71 09/04/24 07:03 74 18 155/72 H 94 Room Air 09/04/24 02:56 36.7 C 73 18 139/65 94 Room Air 09/03/24 23:37 75 09/03/24 23:09 36.5 C 73 18 159/86 H 94 Room Air 09/03/24 22:27 Room Air Intake & Output 09/02/24 09/03/24 09/04/24 09/05/24 06:59 06:59 06:59 06:59 Intake Total 1950 / 1950 540 / 540 1390 / 1390 Output Total 302 / 302 Balance 1648 / 1648 540 / 540 1390 / 1390 Weight 220 lb 14.451 oz 220 lb 7.396 oz 209 lb 10.554 oz Laboratory Results Laboratory Results - last 24 hr 09/03/24 09/03/24 09/04/24 16:03 20:27 07:06 WBC RBC Hgb Hct MCV MCH MCHC RDW Std Deviation RDW Coeff of Hollis Plt Count MPV Immature Gran % (Auto) Neut % (Auto) Lymph % (Auto) [place] % (Auto) Eos % (Auto) Baso % (Auto) Neut # (Auto) Lymph # (Auto) [place] # (Auto) Eos # (Auto) Baso # (Auto) Immature Gran # (Auto) Sodium Potassium Chloride Carbon Dioxide Anion Gap BUN Creatinine Est Cr Clr Drug Dosing eGFR BUN/Creatinine Ratio Glucose POC Glucose 110 H 181 H 131 H Calcium 09/04/24 09/04/24 09:19 11:07 WBC 7.09 RBC 3.83 L Hgb 11.1 L Hct 34.0 L MCV 88.8 MCH 29.0 MCHC 32.6 RDW Std Deviation 47.4 H RDW Coeff of Hollis 14.6 H Plt Count 217 MPV 11.7 Immature Gran % (Auto) 0.4 Neut % (Auto) 60.9 Lymph % (Auto) 26.8 [place] % (Auto) 7.2 Eos % (Auto) 4.1 Baso % (Auto) 0.6 Neut # (Auto) 4.32 Lymph # (Auto) 1.90 [place] # (Auto) 0.51 Eos # (Auto) 0.29 Baso # (Auto) 0.04 Immature Gran # (Auto) 0.03 Sodium 138 Potassium 4.6 Chloride 109 H Carbon Dioxide 27 Anion Gap 2 L BUN 50 H Creatinine 1.73 H D Est Cr Clr Drug Dosing 40.8 eGFR 39.41 BUN/Creatinine Ratio 28.9 H Glucose 236 H POC Glucose 184 H Calcium 8.6 Diagnostic Findings Labs reviewed and notable for improved renal function to within his baseline, normal potassium, stable anemia. Telemetry personally reviewed: Sinus rhythm. Medications Administered Current Inpatient Medications Acetaminophen (Acetaminophen 325 Mg Tab) 650 mg PO Q6H PRN PRN Reason: Pain or Fever Stop: 09/29/24 04:45 Albuterol (Albut/Ipratrop 3mg/0.5mg Neb 3 Ml Vial) 3 ml NEB Q2H PRN; Protocol PRN Reason: dyspnea Stop: 09/29/24 01:27 Last Admin: 08/30/24 02:12 Dose: 3 ml Atorvastatin Calcium (Atorvastatin 40 Mg Tab) 40 mg PO HS ZAIN Stop: 10/02/24 20:59 Last Admin: 09/03/24 20:33 Dose: 40 mg Furosemide (Furosemide Inj 20 Mg/2 Ml Vial) 20 mg IV [id number] ZAIN Stop: 10/03/24 08:59 Last Admin: 09/03/24 17:41 Dose: Not Given Guaifenesin (Guaifenesin 600 Mg Tabcr) 600 mg PO Q12 ZAIN Stop: 09/29/24 08:59 Last Admin: 09/03/24 20:33 Dose: 600 mg Heparin Sodium (Porcine) (Heparin Sod 5,000 Unit/0.5 Ml Vial) 5,000 units SQ BID ZAIN Stop: 09/30/24 20:59 Last Admin: 09/03/24 20:32 Dose: 5,000 units Insulin Aspart (Insulin Aspart Per Unit Charge) 0 units SC ACHS [facility] Stop: 09/29/24 07:29 Last Admin: 09/03/24 21:45 Dose: 1 units Insulin Glargine (Lantus Per Unit Charge) 10 units SC QAM [facility] Stop: 09/30/24 08:59 Last Admin: 09/03/24 08:22 Dose: 10 units Metoprolol Succinate (Metoprolol Succ 50mg Ext Rel Tab) 50 mg PO QAM [facility] Stop: 10/03/24 08:59 Last Admin: 09/03/24 08:23 Dose: 50 mg Miscellaneous Information (Pharmacy Glycemic Mgmt Consult) 1 each N/A UD PRN; Protocol PRN Reason: Consult Stop: 09/29/24 04:40 Tamsulosin HCl (Tamsulosin Hcl 0.4 Mg Cap) 0.4 mg PO QAM [facility] Stop: 09/29/24 08:59 Last Admin: 09/03/24 08:23 Dose: 0.4 mg Vitamin D (Cholecalciferol 25 Mcg (1000 Units) Tab) 50 mcg PO DAILY [facility] Stop: 09/29/24 08:59 Last Admin: 09/03/24 08:21 Dose: 50 mcg PG Care Time/CCT Total # of Minutes Spent Total Time Spent with Patient: Total time spent is greater than 50% in coordination of care (as documented) at patient's floor/unit and/or counseling patient: Coding Level of Care Code 05359 SUB INP/OBS CARE 3/50MIN Diagnoses HFrEF (heart failure with reduced ejection fraction) I50.20 Elevated troponin R79.89 Cardiomyopathy I42.9 Atrial tachycardia I47.19 Dyslipidemia E78.5 Hypertension I10 Acute respiratory failure with hypoxia J96.01
[2024-09-04 09:37] LABS: Basophils # (auto) 0.04 K/uL (0.00-0.20); Basophils % (auto) 0.6 %; Eosinophils # (auto) 0.29 K/uL (0.00-0.50); Eosinophils % (auto) 4.1 %; Hemoglobin 11.1 g/dl (14.0-18.0); Immature Granulocytes # (auto) 0.03 K/uL (0.01-0.20); Immature Granulocytes % (auto) 0.4 %; Lymphocytes % (auto) 26.8 %; Mean Corpuscular Hgb Conc 32.6 g/dL (32.0-36.0); Mean Corpuscular Volume 88.8 fL (80.0-100.0); Mean Platelet Volume 11.7 fL (9.4-12.4); Monocytes # (auto) 0.51 K/uL (0.11-0.59); Monocytes % (auto) 7.2 %; Neutrophils # (auto) 4.32 K/uL (1.40-6.50); Neutrophils % (auto) 60.9 %; Platelet Count 217 K/uL (130-400); RDW Coefficient of Variation 14.6 % (11.5-14.5); RDW Standard Deviation 47.4 fL (36.4-46.3); Red Blood Count 3.83 M/uL (4.70-6.10); White Blood Count 7.09 K/ul (4.8-10.8)
[2024-09-04 09:49] LABS: BUN Creatinine Ratio 28.9 (10-20); Calcium 8.6 mg/dl (8.6-10.3); Creatinine Clr Calc Pharmacy 40.8 ml/min; Potassium 4.6 mmol/L (3.5-5.1)
--- NOTE | 2024-09-04 09:59 | Nephrology Progress Note ---
Date of Service September 04, 2024 Assessment & Plan (1) DANIEL (acute kidney injury): Plan: Non-oliguric. Creatinine improved to baseline. Clinical presentation suggestive of hemodynamically mediated DANIEL in the setting of infection + diuretics. Significantly less likely AIN (rate of progression/onset too rapid). Goal is to maintain an even to slightly negative fluid balance. Medications are appropriate for kidney function. Continue to monitor kidney function daily while hospitalized. No additional nephrology recommendations at this time. I will sign-off. Please call with questions or concerns. (2) Chronic kidney disease, stage III (moderate): Plan: CKD III-IV A3. CKD attributed to DKD. Chronically atrophic left kidney. Follows with Dr. Mccormack as outpatient. Baseline creatinine 1.4-2.0 mg/dL. Please arrange outpatient follow up with Dr. Mccormack within 2 weeks of discharge. (3) CHF (congestive heart failure): Plan: Volume status improving. Diuretics restarted yesterday. Consider transitioning to low dose PO furosemide. I discussed with Dr. Mayen yesterday. It would be very reasonable to start a low dose Entresto now with close monitoring of kidney function. Admission and Anticipated Discharge Date Admission Date: August 30, 2024 Subjective No acute events overnight. Fady feels well this AM. He is breathing comfortably. He denies chest pains or palpitations. Review of Systems Review of Systems: All systems reviewed & are unremarkable except as noted in HPI & below Physical Exam Constitutional: well developed; no acute distress Eyes: + anicteric sclerae ENMT: Mouth: no oral mucosal abnormality and oral mucous membranes not dry Neck: normal visual inspection and trachea midline Respiratory: normal respiratory effort Auscultation: lungs clear to auscultation bilaterally Cardiovascular: Rate/Rhythm: regular rate and regular rhythm Heart Sounds: normal S1 and normal S2 Extremities: + edema Musculoskeletal: Extremities: no cyanosis and no clubbing Skin: normal turgor; no lesions Neurologic: Motor/Sensory: no tremor and no asterixis Psychiatric: Orientation: alert and oriented x 3 Results & Data Vital Signs (Past 12 Hours) Vital Signs Temp Pulse Pulse Resp BP Pulse Ox O2 Del Method 09/04/24 08:00 Room Air 09/04/24 07:20 71 09/04/24 07:03 74 18 155/72 H 94 Room Air 09/04/24 02:56 36.7 C 73 18 139/65 94 Room Air 09/03/24 23:37 75 09/03/24 23:09 36.5 C 73 18 159/86 H 94 Room Air 09/03/24 22:27 Room Air Laboratory Results Laboratory Results - last 24 hr 09/03/24 09/03/24 09/03/24 10:59 16:03 20:27 WBC RBC Hgb Hct MCV MCH MCHC RDW Std Deviation RDW Coeff of Hollis Plt Count MPV Immature Gran % (Auto) Neut % (Auto) Lymph % (Auto) [place] % (Auto) Eos % (Auto) Baso % (Auto) Neut # (Auto) Lymph # (Auto) [place] # (Auto) Eos # (Auto) Baso # (Auto) Immature Gran # (Auto) Sodium Potassium Chloride Carbon Dioxide Anion Gap BUN Creatinine Est Cr Clr Drug Dosing eGFR BUN/Creatinine Ratio Glucose POC Glucose 165 H 110 H 181 H Calcium 09/04/24 09/04/24 07:06 09:19 WBC 7.09 RBC 3.83 L Hgb 11.1 L Hct 34.0 L MCV 88.8 MCH 29.0 MCHC 32.6 RDW Std Deviation 47.4 H RDW Coeff of Hollis 14.6 H Plt Count 217 MPV 11.7 Immature Gran % (Auto) 0.4 Neut % (Auto) 60.9 Lymph % (Auto) 26.8 [place] % (Auto) 7.2 Eos % (Auto) 4.1 Baso % (Auto) 0.6 Neut # (Auto) 4.32 Lymph # (Auto) 1.90 [place] # (Auto) 0.51 Eos # (Auto) 0.29 Baso # (Auto) 0.04 Immature Gran # (Auto) 0.03 Sodium 138 Potassium 4.6 Chloride 109 H Carbon Dioxide 27 Anion Gap 2 L BUN 50 H Creatinine 1.73 H D Est Cr Clr Drug Dosing 40.8 eGFR 39.41 BUN/Creatinine Ratio 28.9 H Glucose 236 H POC Glucose 131 H Calcium 8.6 PG Care Time/CCT Total # of Minutes Spent Total Time Spent with Patient: Total time spent is greater than 50% in coordination of care (as documented) at patient's floor/unit and/or counseling patient: Coding Level of Care Code 68009 SUB INP/OBS CARE 3/50MIN Diagnoses DANIEL (acute kidney injury) N17.9 Chronic kidney disease, stage III (moderate) N18.3 CHF (congestive heart failure) I50.9
--- NOTE | 2024-09-04 12:10 | Pharmacy Report ---
Pharmacy Glycemic Sign Off Nt - Date of Service September 04, 2024 - Assessment & Plan ASSESSMENT: * Pharmacy was consulted by Dr Lowe on 08/30 for glycemic control and to write orders per [facility] inpatient glycemic control protocol. * Patient has been receiving/requiring 16-22 units of insulin per day for adequate glycemic control * BSGs ranging 110 181 mg/dl * Regimen has only required minor adjustments over the past 48hrs to achieve this level of control * Do not anticipate further changes in patient status that would quickly deteriorate glycemic control (i.e. patient to be NPO for upcoming procedure, steroids tapering, starting tube feedings, etc). PLAN FOR INPATIENT GLYCEMIC CONTROL: No changes needed to current regimen. * Continue basal insulin with Lantus 10 units SQ daily * Continue NovoLog per scale ACHS/Q6hrs while NPO * Goal range = 110 140 mg/dl * CF = 40 mg/dl/unit * CR = 1 unit for ever 15 g CHO consumed * Pharmacy is signing off of glycemic consult and will no longer be making adjustments to inpatient regimen. Please feel free to re-consult if needed. Thank you.
[2024-09-04] MEDS: VALSARTAN/SACUBITRIL 26/24MG TAB PO SCH (20:29)
[2024-09-05 07:13] LABS: Basophils # (auto) 0.05 K/uL (0.00-0.20); Basophils % (auto) 0.7 %; Eosinophils # (auto) 0.44 K/uL (0.00-0.50); Eosinophils % (auto) 6.1 %; Hematocrit (blood only) 32.9 % (42.0-52.0); Hemoglobin 10.8 g/dl (14.0-18.0); Immature Granulocytes # (auto) 0.02 K/uL (0.01-0.20); Immature Granulocytes % (auto) 0.3 %; Lymphocytes % (auto) 26.4 %; Mean Corpuscular Hgb Conc 32.8 g/dL (32.0-36.0); Mean Corpuscular Volume 88.2 fL (80.0-100.0); Mean Platelet Volume 12.2 fL (9.4-12.4); Monocytes % (auto) 8.3 %; Neutrophils # (auto) 4.19 K/uL (1.40-6.50); Neutrophils % (auto) 58.2 %; Platelet Count 213 K/uL (130-400); RDW Coefficient of Variation 14.6 % (11.5-14.5); RDW Standard Deviation 47.1 fL (36.4-46.3); Red Blood Count 3.73 M/uL (4.70-6.10)
[2024-09-05 07:31] LABS: Potassium 4.3 mmol/L (3.5-5.1)
[2024-09-05 07:32] LABS: BUN Creatinine Ratio 27.3 (10-20); Calcium 8.2 mg/dl (8.6-10.3); Creatinine Clr Calc Pharmacy 36.2 ml/min; Magnesium 1.6 mg/dl (1.7-2.4); Phosphorus 3.2 mg/dl (2.5-4.9)
--- NOTE | 2024-09-05 07:47 | Hospitalist Progress Note ---
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 #Acute respiratory failure with hypoxia Due to viral pneumonia, [place] OC 43 positive Initially on linezolid/Zosyn. Antibiotics discontinued for concerns of AIN due to increase in renal dysfunction despite appearing euvolemic s/p methylprednisolone Antibiotics discontinued - Remains afebrile and without leukocytosis #DANIEL on CKD III Baseline creatinine around 1.41.8 Creatinine peaked at 2.92 Downtrending and 1.73 on 09/04 but increased to 1.97 today (in the setting of initiating entresto) - will trend Cr at this time Atrial tachycardia versus atrial fibrillation Baseline EKG incomplete left bundle branch block, sinus Discussed with cardiology new onset, 30-minute episode of tachycardia on 09/01 @ [id number]. Sudden onset/offset and mostly ?irregular without consistent OR however when rate slows temporarily at around 0640 does appear to have P waves with consistent OR suspicious for atrial tachycardia. [id number] 4 (age, CHF, DM2). Will defer anticoagulation at this time and follow as this may have been atrial tachycardia rather than true A-fib and monitor. If he does have recurrence please obtain stat EKG to document and would need to be anticoagulated at that time and would meet criteria for Eliquis dose reduction. Appreciate cardiology review/recommendation Acute on Chronic systolic heart failure - TTE EF 35% global hypokinesis Initial chest x-ray with? Viral process versus pulmonary edema with layering effusions. Suspected to have CHF however did have DANIEL as noted,? Antibiotic and due to fluid versus intravascular depletion and subsequent worsening following 1 L NSS and then with peak and downtrend 09/02 - baseline weight ~92-94kg. - clinically euvolemic - Cardiology following. SGLT2/ARNI held pending improvement in renal function. Will need further ischemic evaluation and likely nuclear study however blair nieto remains chest pain-free and is that signs of ACS at this time. GDMT including Entresto/MRA/SGLT2i pending creatinine stability- started on low dose Entresto on 09/04/24, trend Cr Metoprolol uptitrated Type II DM Pharmacy ischemic control, goal [id number], basal bolus SSI with glucose checks AC/at bedtime DVT prophylaxis: Heparin subcu Diet: Heart healthy, type II DM CODE STATUS: DNR/DNI Disposition: pt refusing PT / OT eval at this time , will work w/ CM to ascertain safe d/c , Cr slight rise with initiation of entresto - trend Cr at this time, if rising, will need to revisit cardiac meds Admission and Anticipated Discharge Date Admission Date: August 30, 2024 Subjective No acute events overnight Currently no new complaints He did state that he does not want to go to rehab near here due to distance and then he stated he doesn't want to go to rehab near his home because he could just be at home. He is open to having home therapy Review of Systems Review of Systems: Comprehensive ROS neg Physical Exam Physical Exam: Gen: no acute distress, resting in bed comfortably HEENT: NC/AT, anicteric, MMM Lungs: diminished breath sounds CVS: s1s2nl , RRR Abd: soft, NT, nl bowel sounds Ext: no edema Results & Data Results & Data Vital Signs (Past 12 Hours) Vital Signs Temp Pulse Pulse Resp BP Pulse Ox O2 Del Method 09/05/24 07:00 36.8 C 74 20 121/64 92 Room Air 09/05/24 02:08 37.0 C 71 18 117/55 L 93 Room Air 09/05/24 01:09 68 09/04/24 23:34 Room Air 09/04/24 23:08 36.7 C 69 18 150/77 H 92 Room Air 09/04/24 20:03 36.6 C 77 18 142/94 H 92 Room Air PG Care Time/CCT Total # of Minutes Spent Total Time Spent with Patient: Total time spent is greater than 50% in coordination of care (as documented) at patient's floor/unit and/or counseling patient: Coding Level of Care Code 07466 SUB INP/OBS CARE MIN Diagnoses Acute respiratory failure with hypoxia J96.01 Multifocal pneumonia J18.9 Pleural effusion J90 Elevated troponin R79.89 CHF (congestive heart failure) I50.9 Acute kidney injury superimposed on chronic kidney disease N17.9; N18.9 Coronavirus infection B34.2 DANIEL (acute kidney injury) N17.9
[2024-09-05] MEDS: FUROSEMIDE 40 MG TAB PO SCH (09:07)
[2024-09-05] MEDS: MAGNESIUM OXIDE 400 MG TAB PO SCH (09:21)
[2024-09-06 06:46] LABS: Hematocrit (blood only) 33.8 % (42.0-52.0); Hemoglobin 11.1 g/dl (14.0-18.0); Mean Corpuscular Hemoglobin 28.8 pg (25.0-34.0); Mean Corpuscular Hgb Conc 32.8 g/dL (32.0-36.0); Mean Corpuscular Volume 87.8 fL (80.0-100.0); Mean Platelet Volume 11.9 fL (9.4-12.4); Platelet Count 219 K/uL (130-400); RDW Coefficient of Variation 14.5 % (11.5-14.5); RDW Standard Deviation 46.6 fL (36.4-46.3); Red Blood Count 3.85 M/uL (4.70-6.10); White Blood Count 8.18 K/ul (4.8-10.8)
[2024-09-06 07:06] LABS: Calcium 8.4 mg/dl (8.6-10.3); Creatinine Clr Calc Pharmacy 36.3 ml/min; Magnesium 1.7 mg/dl (1.7-2.4); Phosphorus 3.2 mg/dl (2.5-4.9); Potassium 4.2 mmol/L (3.5-5.1)
--- NOTE | 2024-09-06 07:47 | Hospitalist Progress Note ---
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 #Acute respiratory failure with hypoxia Due to viral pneumonia, [place] OC 43 positive Initially on linezolid/Zosyn. Antibiotics discontinued for concerns of AIN due to increase in renal dysfunction despite appearing euvolemic s/p methylprednisolone Antibiotics discontinued - Remains afebrile and without leukocytosis - 2-step ordered #DANIEL on CKD III Baseline creatinine around 1.41.8 Creatinine peaked at 2.92 Downtrending and 1.73 on 09/04 but increased to 1.97 (in the setting of initiating entresto) but appears to be stabilizing, now 1.93 - will trend Cr at this time Atrial tachycardia versus atrial fibrillation Baseline EKG incomplete left bundle branch block, sinus Discussed with cardiology new onset, 30-minute episode of tachycardia on 09/01 @ [id number]. Sudden onset/offset and mostly ?irregular without consistent UT however when rate slows temporarily at around 0640 does appear to have P waves with consistent UT suspicious for atrial tachycardia. [id number] 4 (age, CHF, DM2). Will defer anticoagulation at this time and follow as this may have been atrial tachycardia rather than true A-fib and monitor. If he does have recurrence please obtain stat EKG to document and would need to be anticoagulated at that time and would meet criteria for Eliquis dose reduction. Appreciate cardiology review/recommendation Acute on Chronic systolic heart failure - TTE EF 35% global hypokinesis Initial chest x-ray with? Viral process versus pulmonary edema with layering effusions. Suspected to have CHF however did have DANIEL as noted,? Antibiotic and due to fluid versus intravascular depletion and subsequent worsening following 1 L NSS and then with peak and downtrend 09/02 - baseline weight ~92-94kg. - clinically euvolemic - Cardiology following. SGLT2/ARNI held pending improvement in renal function. Will need further ischemic evaluation and likely nuclear study however fortunately remains chest pain-free and is that signs of ACS at this time. GDMT including Entresto/MRA/SGLT2i pending creatinine stability- started on l ow dose Entresto on 09/04/24, trend Cr cont metoprolol 50 mg daily Type II DM Pharmacy ischemic control, goal [id number], basal bolus SSI with glucose checks AC/at bedtime DVT prophylaxis: Heparin subcu Diet: Heart healthy, type II DM CODE STATUS: DNR/DNI Disposition: pt refusing PT / OT eval at this time , will work w/ CM to ascertain safe d/c , pt wants to go home with home therapy Admission and Anticipated Discharge Date Admission Date: August 30, 2024 Subjective No acute events overnight Currently no new complaints Review of Systems Review of Systems: Comprehensive ROS neg Physical Exam Physical Exam: Gen: no acute distress, resting in bed comfortably HEENT: NC/AT, anicteric, MMM Lungs: diminished breath sounds CVS: s1s2nl , RRR Abd: soft, NT, nl bowel sounds Ext: no edema Results & Data Results & Data Vital Signs (Past 12 Hours) Vital Signs Temp Pulse Pulse Resp BP Pulse Ox Pulse Ox 09/06/24 06:58 36.5 C 73 20 117/64 93 09/06/24 04:00 95 09/06/24 02:34 36.6 C 73 18 100/59 L 91 09/06/24 00:40 69 09/05/24 22:58 36.3 C L 72 18 149/79 H 94 O2 Del Method O2 Del Method 09/06/24 06:58 Room Air 09/06/24 04:00 Room Air 09/06/24 02:34 Room Air 09/06/24 00:40 09/05/24 22:58 Room Air PG Care Time/CCT Total # of Minutes Spent Total Time Spent with Patient: Total time spent is greater than 50% in coordination of care (as documented) at patient's floor/unit and/or counseling patient: Coding Level of Care Code 08036 SUB INP/OBS CARE 08/01MIN Diagnoses Acute respiratory failure with hypoxia J96.01 Multifocal pneumonia J18.9 Pleural effusion J90 Elevated troponin R79.89 CHF (congestive heart failure) I50.9 Acute kidney injury superimposed on chronic kidney disease N17.9; N18.9 Coronavirus infection B34.2 DANIEL (acute kidney injury) N17.9
[2024-09-06 11:18] VITALS: TEMP 97.9; O2SAT 94
--- NOTE | 2024-09-06 14:33 | Discharge Summary ---
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 #Acute respiratory failure with hypoxia Due to viral pneumonia, [place] OC 43 positive Initially on linezolid/Zosyn. Antibiotics discontinued for concerns of AIN due to increase in renal dysfunction despite appearing euvolemic s/p methylprednisolone Antibiotics discontinued - Remains afebrile and without leukocytosis - 2-step completed, pt does not require supplemental oxygen #DANIEL on CKD III Baseline creatinine around 1.41.8 Creatinine peaked at 2.92 Downtrending and 1.73 on 09/04 but increased to 1.97 (in the setting of initiating entresto) but appears to be stabilizing, now 1.93 - rpt Cr as outpatient , to be done by PCP Atrial tachycardia versus atrial fibrillation Baseline EKG incomplete left bundle branch block, sinus Discussed with cardiology new onset, 30-minute episode of tachycardia on 09/01 @ [id number]. Sudden onset/offset and mostly ?irregular without consistent NV however when rate slows temporarily at around 0640 does appear to have P waves with consistent NV suspicious for atrial tachycardia. [id number] 4 (age, CHF, DM2). Will defer anticoagulation at this time and follow as this may have been atrial tachycardia rather than true A-fib and monitor. If he does have recurrence please obtain stat EKG to document and would need to be anticoagulated at that time and would meet criteria for Eliquis dose reduction. Appreciate cardiology review/recommendation Acute on Chronic systolic heart failure - TTE EF 35% global hypokinesis Initial chest x-ray with? Viral process versus pulmonary edema with layering effusions. Suspected to have CHF however did have DANIEL as noted,? Antibiotic and due to fluid versus intravascular depletion and subsequent worsening following 1 L NSS and then with peak and downtrend 09/02 - baseline weight ~92-94kg. - clinically euvolemic - Cardiology following. SGLT2/ARNI held pending improvement in renal function. Will need further ischemic evaluation and likely nuclear study however fortunately remains chest pain-free and is that signs of ACS at this time. GDMT including Entresto/MRA/SGLT2i pending creatinine stability- started on low dose Entresto on 09/04/24, trend Cr cont metoprolol 50 mg daily - outpatient follow up with cardiology Type II DM - resume home meds Diet: Heart healthy, type II DM CODE STATUS: DNR/DNI Disposition: pt adamantly refused PT / OT. Pt is open to home with home health. Discussed with CM and home health was set up. Pt medically stable and was discharged home Admission HPI Per Admitting Provider The patient is an 78-year-old male with a past medical history including diabetes mellitus, BPH with LUTS, anemia chronic disease, proteinuria, vitamin D deficiency, CKD stage III, bilateral ptosis/dermatochalasis of upper lids, B12 deficiency, bilateral cataracts, adjustment disorder, allergic rhinitis, hypertension, bladder spasm. Most recent hospitalization [facility] was from 07/25-07/27/2024, for urinary tract infection, treated with IV doxycycline, IV levofloxacin, and discharged on oral antibiotics. Urine culture and sensitivity from 07/20/2024 grew MRSA and Enterococcus faecalis. Workup in the emergency department this admission included elevated troponin 90.2, BNP 2146, [employer] positive for OC 43 virus, chest x-ray with right lower lobe and right middle lobe, but parapneumonic effusion, and smaller left pleural effusion. Creatinine was also noted to be 1.96. Patient was given furosemide 40 mg IV from the ED, and then was referred for evaluation for admission. Discharge Plan Discharge Items Patient Disposition: Home - Home Health Services Reason For Visit: ACUTE RESP FAILURE W HYPOXIA,MULTIFOCAL PNEUMONIA Discharge Diagnosis: Acute respiratory failure with hypoxia Activity: Resume your previous activity Non-emergency contact: Primary Care Provider and Motor Scooter Mechanic Call non-emergency contact if: you have any medication questions and your symptoms worsen Follow-up/Referrals: Pro,Star Deal MD [Primary Care Provider] - Laura Kern PA-C [Physician Push Bench Operator Helper] - 09/11/24 9:00 am Diet: Carb Consistent or DM2 and Heart Healthy Addtl Attending Provider Instructions: Please have your primary care doctor check a kidney function test in about 3 days after discharge. Stop taking losartan. This medication was replaced with Entresto Pending Studies at Discharge: No Stand-Alone Forms: [facility], Smoking Cessation Medications and DC Order Prescriptions: New furosemide 40 mg Tablet 40 mg PO QAM 30 Days Qty: 30 0RF atorvastatin 40 mg Tablet 40 mg PO HS 30 Days Qty: 30 0RF metoprolol succinate 50 mg Tablet Extended Release 24 Hr 50 mg PO QAM 30 Days Qty: 30 0RF sacubitril-valsartan [Entresto] 24-26 mg Tablet 1 tab PO BID 30 Days Qty: 60 0RF Continued tamsulosin [Flomax] 0.4 mg capsule 0.4 mg PO QAM Qty: 90 3RF cholecalciferol (vitamin D3) 2,000 unit capsule 2,000 units PO DAILY Zyrtec 10 mg capsule 10 mg PO DAILY PRN (Reason: allergy symptoms) (DME) blood-glucose meter [OneTouch Verio Flex meter] Misc See Rx Instructions .Route Qty: 1 0RF Rx Instructions: Test blood sugar twice daily and as needed (DME) lancets [OneTouch Delica Plus Lancet] 30 gauge misc See Rx Instructions .Route Qty: 100 6RF Rx Instructions: Test blood sugar twice daily and as needed (DME) OneTouch Verio test strips Strip See Rx Instructions .Route Qty: 100 6RF Rx Instructions: Test blood sugar three times daily and as needed insulin glargine [Lantus Solostar U-100 Insulin] 100 unit/mL (3 mL) insulin pen 32 unit subcut HS (DME) pen needle,diabetic, disp unit 32 gauge x 5/32" needle See Rx Instructions .Route Qty: 100 6RF Rx Instructions: As directed acetaminophen 650 mg Tablet Extended Release 1,300 mg PO Q12H PRN (Reason: Pain) oxybutynin chloride 5 mg tablet 5 mg PO UD PRN (Reason: Bladder Spasms) Rx Instructions: as needed for bladder spasms Discontinued losartan 50 mg tablet 50 mg PO DAILY Qty: 90 3RF Discharge Orders: Discharge Order (Routine); Ordered 09/06/24 Ordered By: Shayy Scanlon Admission Data Admit Date/Time: 08/30/24 01:43 Attending Provider: Shayy Scanlon Admit Provider: Kurtis Wilks Primary Care Provider: Star Duron Other Providers: Kurtis Wilks; Chuck Mayen; Ramin Quach; Laura Kern; [facility]; [facility] Stay Data Consultations 08/30/24 01:29 ED Decision to Admit Stat 09/01/24 18:02 Consult Cardiology Routine 09/01/24 18:03 Consult Nephrology Routine 09/02/24 17:45 [facility] CHF Program Referral Routine Diagnostic Imagining Performed 09/01/24 10:21 US Renal Bladder [US renal/blad retro comp] Routine Discharge Instructions Given to Patient (Per Discharging Provider) Please have your primary care doctor check a kidney function test in about 3 days after discharge. Stop taking losartan. This medication was replaced with Entresto Total Time Total Time Spent Total Time Spent (In Minutes): 35 Coding Level of Care Code 29557 INP/OBS DISCH >30 MIN Diagnoses Acute respiratory failure with hypoxia J96.01 Multifocal pneumonia J18.9 Pleural effusion J90 Elevated troponin R79.89 CHF (congestive heart failure) I50.9 Acute kidney injury superimposed on chronic kidney disease N17.9; N18.9 Coronavirus infection B34.2 DANIEL (acute kidney injury) N17.9
[2024-09-06 16:24] VITALS: BP 128/77; PULSE 78; RESP 18
== END 2024-09-06 17:00 | disposition home health service (06) | DRG 193 ==
LOC: ED 23:17 → SUATTDRO 08-30 01:43 → 2E 08-30 01:43